=== PATIENT | male | born 1950 | race Caucasian/White ===

== ENCOUNTER 2017-07-09 06:01 | Day surgery (SDC) | payer MEDICARE, SELFPAY ==
[2017-07-09 06:14] VITALS: BP 143/86; PULSE 91; RESP 18; TEMP 36.7; O2SAT 95; BMI 29.7
--- NOTE | 2017-07-09 06:22 | PCM.HP.STD ---
Problem List (1) Colon adenomas Status: Acute History of Present Illness Date of Admission: 07/09/17 The patient is a 67 year old M who approximately 2 years had ago had a colonoscopy. 3 separate polyps were identified. One was a villous adenoma. Patient fortunately has not any bright red blood per rectum or melena. It was recommended to him at that time that he follow-up with a colonoscopy at 1 year. By report insurance did not permit that. The patient denies bright red blood per rectum or melena. No abdominal pain. No unexpected weight loss. He otherwise enjoys good health Past Medical History Allergies No Known Allergies Allergy (Verified 07/09/17 06:14) Home Medications: Ambulatory Orders Medication Instructions Recorded Pravastatin Sodium [Pravachol] 40 mg PO DAILY 01/04/15 Budesonide/Formoterol 80-4.5 2 puff INHALATION PRN PRN 07/05/17 [Symbicort 80-4.5 Mcg Inhaler] Doxazosin Mesylate [Cardura] 2 mg PO QHS 07/05/17 Lansoprazole [Prevacid] 15 mg PO PRN PRN 07/05/17 Smoking Status: Never smoker Review of Systems Constitutional: Denies: Weight Change Eyes: Denies: Blurred vision, Vision Change HEENT: Denies: Ear Pain, Eye Pain Cardiovascular: Denies: Chest Pain, Claudication Respiratory: Denies: Cough, Shortness of Breath Gastrointestinal: Denies: Hematemesis, Hematochezia Genitourinary: Denies: Dysuria, Hematuria Musculoskeletal: Denies: Leg Pain Skin: Denies: Jaundice Neurological: Denies: Confusion Psychiatric: Denies: Depression Endocrine: Denies: Change in Body Habitus Hematologic/ Lymphatic: Denies: Easy Bleeding VTE Information - Inpt Only VTE Present on Admission: No Patient Problems: Active and Suspected Problems Colon adenomas (Acute) - Physical Exam General: Alert, Oriented x3, Cooperative, No apparent distress HEENT: Atraumatic Oral: Moist Mucosa Neck: Supple Lungs: Clear to auscultation Cardiovascular: Regular rate Abdomen: Bowel Sounds Present Extremities: No clubbing Skin: No rashes Musculoskeletal: No Tenderness to Palpation of Joints or Extremities Lymphatic: No Cervical, Supraclavicular, or Inguinal Adenopathy Neurological: Cranial nerves II-XII grossly intact Psych/Mental Status: Normal Affect Assessment/Plan Active and Suspected Problems Colon adenomas (Acute) This patient has had a history of multiple previous polyps with villous adenomas detected. I strongly recommend a colonoscopy with possible biopsy or polypectomy is indicated. He is aware of the technique, benefits, risks, alternatives. We will proceed as noted. Primary care physician is Dr. Babita Gabriel M.D., F.A.C.S.
--- NOTE | 2017-07-09 06:49 | COLBX_PTH ---
PATIENT: MAIRA KOENIG LOC: EN U#:[id number] AGE/SX: 67/M ROOM: RE07/09/[address]: Dr. Kamaljit Gabriel MD : 1950 BED: DIS: 07/09/2017 SPEC #: [id number] RECD: 07/09/17 11:04 STATUS: CARLA ARVIND #: [id number] ANAMARIA: 07/09/17 06:[address]: Kamaljit Gabriel DEPT: SURGICAL PATHOLOGY RECD BY: Yordan Gaspar ENTERED: 07/09/17 12:41 SP TYPE: COLON BX OTHR DR: Dr. Hunter Jc MD Tissues: A - Transverse colon B - SPLENIC FLEXURE Procedures: Surgery Specimen Level IV HEADER OPERATION: Colonoscopy PRE-OP DIAGNOSIS: Screening, history of polyps TISSUE SUBMITTED: A. Proximal transverse polyp, B. Splenic flexure polyps MICROSCOPIC DIAGNOSIS A. Proximal transverse colon polyp, biopsy: Fragments of tubular adenoma. B. Colonic polyps at hepatic flexure, biopsy: Fragments of tubular adenoma. AM:joaquina 07/10/17 MICROSCOPIC DESCRIPTION Slides are reviewed. GROSS DESCRIPTION A - Received in fixative is one container labeled with the patient's name and designated proximal transverse polyp. The specimen consists of multiple irregular fragments of light velázquez soft tissue that in aggregate measure 1.5 x 0.5 x 0.1 cm. The specimen is totally submitted in one cassette. B - Received in fixative is one container labeled with the patient's name and designated splenic flexure polyps. The specimen consists of multiple irregular fragments of light velázquez soft tissue that in aggregate measure 2 x 0.5 x 0.1 cm. The specimen is totally submitted in one cassette. / SJ:joaquina 07/09/17 TC:5 CPT: 69018 x2
--- NOTE | 2017-07-09 07:18 | PCM.OPRPT ---
Problem List (1) Colon adenomas Status: Acute Report of Operation Date of Procedure: 07/09/17 Pre-Operative Diagnosis: Personal history of colon polyps Post-Operative Diagnosis: Sessile polyps ?2 of the proximal transverse colon. Sessile polyp of the splenic flexure Surgery/Procedure Performed:: Colonoscopy with saline lift and hot snare polypectomy with hemostatic clip placement and Leeanne ink marking Description of Surgical Findings:: Timeout and informed consent was obtained. 67-year-old gent was taken to the endoscopy suite. He was placed in a left lateral decubitus position. Throughout the procedure in aliquots she received a total of 100 mg of Demerol and 5.5 mg Versed as intravenous sedation. Digital rectal exam performed. Normal anal tone. 2+ smooth prostate. No mass lesions. Flexible colonoscope inserted the rectum advanced quite readily through the descending transverse and with some minimal abdominal pressure to the ascending colon and cecum. The cecum ileocecal valve area is well achieved. Bowel prep was good. The scope was carefully withdrawn from the ascending colon no abnormalities noted. In the proximal transverse colon there was a suggestion of possible previous ink marking. There were 2 sessile polyps. One measured approximately 1.5 cm in diameter and the other 8 mm in diameter. Both sessile. I treated both with a similar technique. I used a needle and injected saline to perform a lift procedure. For the larger one I did a piecemeal resection and then I applied a hemostatic clip. Fragments were retrieved with a Harrington net. For the smaller lesion a single resection was adequate. Harrington net was used to retrieve that specimen. The larger of the 2 polyp polyps resection area was treated with a hemostatic clip. The smaller of the 2 was nicely hemostatic at the completion. Further withdrawal demonstrated normal mid transverse colon. Then immediately at the splenic flexure on the lesser portion of that curvature there was quite a sizable polyp measuring at least 4 cm. I suspect based upon suggestion of some previous ink marking that this was yet another area of previous attempted resection. Again I performed a saline lift but the polyp was immediately on the curvature. I did a partial removal with piecemeal resection it then became apparent though because of its positioning at that a complete resection was not going to be feasible. I used a hemostatic clip to help secure the tissue. I performed a saline lift is noted. I then injected 6 cc of Leeanne ink at the location to act as a marker. That seemed to be well tolerated. Hemostasis was intact. I further withdrew the scope without additional abnormality noted. Impression Sessile polyps ?2 of the proximal transverse colon likely in location of previous polyps. Large sessile polyp of the splenic flexure. Incomplete resection due to positioning. Hemostatic clips placed both in the proximal transverse colon and at the splenic flexure. Supine abdominal film pending. The patient will return to my office in 1 week's time to discuss pathology and potential recommendations for definitive surgical resection. Previous colonoscopy was 2 years ago. Next colonoscopy will be pending further surgical discussion regarding patient needs. Cc: Dr. Babita Gabriel M.D., F.A.C.S. Procedure was started 0635. The scope was inserted 0637. The cecum was reached at 0640.47. The procedure was completed at 0715.47. Type of Anesthesia:: IV Sedation
[2017-07-09 07:25] VITALS: BP 128/74; BP 143/86; PULSE 66; RESP 16; TEMP 36.2; O2SAT 96
--- NOTE | 2017-07-09 07:28 | RAD_ITS ---
STUDY: X-RAY - ABDOMEN/PELVIS REASON FOR EXAM: Male, 67 years old. Status post colonoscopy. TECHNIQUE: AP supine and upright views of the abdomen and pelvis. COMPARISON: Prior comparison studies are not available for review at this time. FINDINGS: Normal visualized lung bases. There is an unremarkable bowel gas pattern. There is no demonstrated free abdominal air. There is no obvious visceromegaly, mass, dilated bowel or pathologic calcifications. Metallic opacities are visible within the right upper quadrant and central upper abdomen. The location of these opacities is uncertain but could be located in the colon. These could represent endoscopic capsules. Normal soft tissue structures. Normal visualized osseous structures. RAD/Abd Inc Decub and/or Erect IMPRESSION: Two nonspecific metallic devices are visible within the upper abdomen. Electronically Signed: Marilee Bush MD at 8:39 EDT , Service support ,
[2017-07-09 07:30] VITALS: BP 115/74; BP 143/86; PULSE 64; RESP 16; O2SAT 95
[2017-07-09 07:35] VITALS: BP 113/73; BP 143/86; PULSE 73; RESP 16; O2SAT 94
[2017-07-09 07:40] VITALS: BP 125/78; BP 143/86; PULSE 75; RESP 16; TEMP 36.3; O2SAT 92
[2017-07-09 08:51] VITALS: BP 143/86
== END 2017-07-09 08:52 | disposition home or self-care (01) ==
LOC: EN 06:05 → AC 06:07
PROVIDERS: Family Provider Family Medicine; PCP Family Medicine; Visit Provider Surgery
PROC: 0DJD8ZZ Inspection of Lower Intestinal Tract, Via Natural or Artificial Opening Endoscopic (ICD-10-PCS; CPT 45378; principal; 2017-07-09 06:25)
DX: D12.3 Benign neoplasm of transverse colon (principal); Z79.899 Other long term (current) drug therapy
CPT/HCPCS: 45381; 45385; 74019; 88305; 99152; 99153; J7120; A4216; A4648

== ENCOUNTER → 2018-03-13 10:32 | Outpatient (CLI) | payer MEDICARE, SELFPAY ==
[2018-03-13 12:30] LABS: ALB/GLOB Ratio 1.3 RATIO (0.9-2.4); AST(SGOT) 17 U/L (15-37); Alanine Aminotransfer ALT/SGPT 35 U/L (16-61); Alkaline Phosphatase 73 U/L (45-117); Anion Gap 9 (5-15); BUN 15 mg/dL (7-18); BUN/Creat Ratio 12.6 RATIO (10-20); Calcium,Total 8.8 mg/dL (8.5-10.1); Chloride 108 mmol/L (98-107); Cholesterol 200 mg/dL (200); Creatinine, Serum 1.19 mg/dL (0.70-1.30); EST Glomerular Filtration Rate 65 mL/min (>60); Est Glom Filt Rate - Afr Amer 78 mL/min (>60); Glucose 83 mg/dL (74-106); High Density Lipoprotein 47 mg/dL; PSA,Total - Annual Screen 1.38 ng/mL (0.00-4.00); Potassium 4.3 mmol/L (3.5-5.1); Sodium Level 142 mmol/L (136-145); Triglycerides 119 mg/dL; Very Low Density Lipoprotein 24 mg/dL (5-40)
--- OUTSIDE RECORDS SUMMARY | 2018-05-08 12:38 | XMS RPT_ITS ---
:1950 Author Organization OHIP Care Team Providers Name Role Phone Nurse, Surgery Attending Unavailable Hunter Jc Referring Unavailable Rashaunney, [facility] Primary Care Unavailable CebulKamaljit Attending Unavailable Cebul Kamaljit Referring Unavailable Ranney, [facility] Primary Care Unavailable CebulKamaljit Attending Unavailable Cebul Kamaljit Referring Unavailable Ranney, Christopher Primary Care Unavailable CeKamaljit vigil Consulting Unavailable CeKamaljit vigil Attending Unavailable Ranney, Christopher Referring Unavailable Ranney, Christopher Primary Care Unavailable Ranney, Hunter Attending Unavailable [place], [facility] Primary Care Unavailable PROBLEMS PROBLEMS DATE TYPE CONDITION / CODE ATTENDING STATUS SOURCE 03/13/2018 Unknown E78.00 - Pure Babita, Active [place] hypercholesterolem [facility] ia, unspecified / Hospital E78.00(ICD-10) Repository 03/13/2018 Unknown I10 - Essential Ranney, Active [place] (primary) [facility] hypertension / Hospital I10(ICD-10) Repository PROCEDURES PROCEDURES No Procedure Records FoundRESULTS RESULTS COMPREHENSIVE METABOLIC Collected: 03/13/2018 Status: F Source: [place] PROFIL 10:33 AM [facility] REPOSITORY TYPE CODE TESTS RESULT OUT OF RANGE REFERENCE UNITS LAB L501.0100 74-106 mg/dL Normal GLU 83 Result Comment: Please note revised GLUCOSE reference range effective 2017. LAB L501.1000 7-18 mg/dL Normal BUN 15 LAB L501.1100 0.70-1.30 mg/dL Normal CREAT,SERUM 1.19 Result Comment: The validity of the calculated GFR AND GFRAA in patients over 70 years has not been determined. Clinical correlation is essential. LAB L501.1110 >60 mL/min Normal EST GFR 65 Result Comment: Non- GFR Calc LAB L501.1115 >60 mL/min Normal EST GFR - AA 78 Result Comment: GFR Calc LAB L501.1300 10-20 RATIO Normal BUN/CRE 12.6 LAB L501.1500 6.4-8.2 g/dL T Normal PROT 7.0 LAB L501.1800 3.2-5.0 g/dL Normal ALB 4.0 LAB L501.1950 2.2-4.2 g/dL Normal GLOB 3.0 LAB L501.2000 0.9-2.4 RATIO Normal A/G 1.3 LAB L501.2200 8.5-10.1 mg/dL CA Normal 8.8 LAB L501.4100 15-37 U/L Normal AST 17 LAB L501.4305 45-117 U/L Normal ALK P 73 LAB L501.4405 16-61 U/L Normal ALT 35 LAB L501.4600 0.20-1.00 mg/dL High T BILI 1.40 LAB L501.5300 136-145 mmol/L NA Normal 142 LAB L501.5600 3.5-5.1 mmol/L K Normal 4.3 LAB L501.5900 98-107 mmol/L High CL 108 LAB L501.6100 21.0-32.0 mmol/L Normal CO2 25.0 LAB L501.6200 5-15 Normal GAP 9 Performed By: #### L500.4050, L500.4100, L501.9910 #### [facility] [address] [place], [address] LIPID PROFILE Collected: 03/13/2018 Status: F Source: [place] 10:33 AM [facility] TYPE CODE TESTS RESULT OUT OF RANGE REFERENCE UNITS LAB L501.4900 200 mg/dL Normal CHOL 200 Result Comment: <200 mg/dL Desirable 200-240 mg/dL Borderline >240 mg/dL High Risk LAB L501.5000 mg/dL Normal TRIG 119 Result Comment: The drugs N-Acetylcysteine and Metamizole may falsely depress this assay. Serum Triglycerides Reference Interval Normal <150 mg/dL Borderline high 150 - 199 mg/dL High 200 - 499 mg/dL Very High > or = 500 mg/dL LAB L501.6400 mg/dL Normal HDL 47 Result Comment: The drugs N-Acetylcysteine and Metamizole may falsely depress this assay. Reference Range HDL <40 mg/dL Low HDL Cholesterol HDL >or= 60 mg/dL High HDL Cholesterol LAB L501.6500 0-130 mg/dL Normal LDL 129 LAB L501.6600 5-40 mg/dL Normal VLDL 24 Performed By: #### L500.4050, L500.4100, L501.9910 #### [facility] [address] [place], [address] PSA,TOTAL - ANNUAL Collected: 03/13/2018 Status: F Source: [place] SCREEN 10:33 AM [facility] [place] TYPE CODE TESTS RESULT OUT OF RANGE REFERENCE UNITS LAB L501.9910 0.00-4.00 ng/mL Normal PSA,TOT 1.38 SCREEN Result Comment: This test was performed using the TPSA assay method for the [employer] chemistry system. Values obtained with different assay methods cannot be used interchangably. When changing PSA assays in the course of monitoring a patient, additional sequential testing should be carried out to confirm baseline values. Performed By: #### L500.4050, L500.4100, L501.9910 #### [facility] [address] [place], [address] SURGERY VISIT REPORT Observed: 07/16/2017 Status: F Source: [place] 5:16 PM [facility] [address] [place] [address] OFFICE VISIT Date of Service: 07/16/17 MR#: [id number] Acct: [id number] Name: ROSALIND KOENIG #: [id number] : 1950 Provider: Kamaljit Gabriel MD Age/Sex: 67/M Location[place] [facility] Status: Signed Intake Intake Visit Reasons: F/U C-SCOPE 07/09/17 RC Allergies No Known Allergies Allergy (Verified 07/09/17 06:14) Medications Pravastatin Sodium [Pravachol] 40 mg PO DAILY 01/04/15 [History Confirmed 07/09/17] Budesonide/Formoterol 80-4.5 [Symbicort 80-4.5 Mcg Inhaler] 2 puff INHALATION PRN PRN 07/05/17 [History Confirmed 07/09/17] Doxazosin Mesylate [Cardura] 2 mg PO QHS 07/05/17 [History Confirmed 07/09/17] Lansoprazole [Prevacid] 15 mg PO PRN PRN 07/05/17 [History Confirmed 07/09/17] PFSH Medical History Colon adenomas (Acute) Surgical History S/P colonoscopy (Acute) Social History Smoking Status: Never smoker HPI HPI HPI: ROSALIND KOENIG, is a 67 M who presents to the office today for surgical follow-up status post his most recent colonoscopy with saline left and snare polypectomy. 67-year-old gentleman. He presented to me on July 09, 2017 with a history of approximately 2 years prior having had a colonoscopy. 3 separate polyps were identified. One was a villous adenoma. It was recommended to him that he pursue a follow- up colonoscopy at 1 year. He did not pursue that. Subsequently on July 09, 2017 and performed a colonoscopy. Sessile polyps 2 of the proximal transverse colon was identified. Sessile polyp of the splenic flexure was identified but on follow-up abdominal x-rays that polyp actually ends at being in the mid transverse colon. I performed a colonoscopy with saline lift and hot snare polypectomy as well as in the ink marking and hemostatic clip placement. In the proximal transverse colon there was a suggestion of previous Leeanne ink marking. There were 2 sessile polyps. One measuring about 8 mm in diameter 1 1.5 cm diameter. Both were sessile. I felt that I got good piecemeal resection with complete removal of those 2 polyps and I placed a hemostatic clip. When I got to what I thought was a splenic flexure which admittedly on follow-up abdominal x-ray actually represents the mid transverse colon there was a larger sessile polyp which I felt measured about 4 cm. It was on a haustral fold and I was able to perform a saline lift and resect half of it. I did place an hemostatic clip to corie the area and I aggressively injected the area with Leeanne ink. I was expecting that this polyp likely would end up pathologically consistent with a villous adenoma possibly even with dysplasia and I felt that possibly the patient would be a candidate for a more aggressive type surgical procedure namely a partial colectomy. Additionally I had concerns based upon the suggestion that there was some Leeanne ink tattooing in these 2 areas that this actually represented the areas of previous colonoscopic treatment. It was not completely clear to me that the previous treatment had completely eradicated the polyps Assessment AND Plan 1. Colon adenomas D12.6 Plan So today's appointment was a 30 minute [id number] pathology review consultative appointment. The polyps in the proximal transverse colon and up being fragments of tubular adenoma. The polyp labeled hepatic flexure by the pathologist is an incorrect nomenclature and actually represents tissue submitted labeled B which I had labeled as the splenic flexure polyp. Finally in reality based upon postprocedural abdominal x-ray this area is actually in the mid transverse colon. In any case the pathology is also consistent with a tubular adenoma. On his most recent pathology there is no evidence for villous tumor I have described all of this to the patient and his . Whereas previously I was leaning toward a more aggressive surgical procedure I now am not recommending that. I am recommending tertiary referral for advanced endoscopic technique for completion polypectomy of the polyp which resides now in the mid transverse colon. There is in the Inc. there as well as currently a hemostatic clip. He has had an opportunity to ask and have questions answered. He will check with his insurance and recontact me as to how he would like to proceed. I think that is very reasonable to offer him a tertiary referral for resection of that remaining polyp. Cc: Dr. Babita Gabriel M.D., F.A.C.S. Coding Level of Care Code Off vis,est,level 2 Diagnoses Colon adenomas D12.6 07/16/17 1716 <Electronically signed by Kamaljit Gabriel MD> Date Kamaljit Gabriel MD [facility] Signature: Date (if applicable) CC: Hunter Jc MD ABD INC DECUB Observed: 07/09/2017 Status: F Source: [place] AND/OR ERECT 7:30 AM [facility] Imaging Services [address] [place] [address] Abd Inc Decub and/or Erect MR#: [id number] Acct: [id number] Name: KOENIGROSALIND Brigid Rep #: [id number] : 1950 67 From: Marilee Bush MD PCP: Hunter Jc MD Status: REG [facility] Study: Abd Inc Decub and/or Erect Date of Exam: 07/09/17 Exam# [id number] Ordering Dr: Kamaljit Gabriel MD STUDY: X-RAY - ABDOMEN/PELVIS REASON FOR EXAM: Male, 67 years old. Status post colonoscopy. TECHNIQUE: AP supine and upright views of the abdomen and pelvis. COMPARISON: Prior comparison studies are not available for review at this time. FINDINGS: Normal visualized lung bases. There is an unremarkable bowel gas pattern. There is no demonstrated free abdominal air. There is no obvious visceromegaly, mass, dilated bowel or pathologic calcifications. Metallic opacities are visible within the right upper quadrant and central upper abdomen. The location of these opacities is uncertain but could be located in the colon. These could represent endoscopic capsules. Normal soft tissue structures. Normal visualized osseous structures. RAD/Abd Inc Decub and/or Erect IMPRESSION: Two nonspecific metallic devices are visible within the upper abdomen. Electronically Signed: Marilee Bush MD at 8:39 EDT , Service support , CC: Hunter Jc MD; Kamaljit Gabriel MD Advanced Practice Provider: Signed OPERATIVE REPORT Observed: 07/09/2017 Status: F Source: [place] 7:24 AM [facility] Medical Records Department [address] [place] [address] Operative Report 07/09/17 0718 MR#: [id number] Acct: [id number] Name: ROSALIND KOENIG Rep #: [id number] : 1950 67 From: Kamaljit Gabriel MD PCP: Hunter Jc MD Status: REG [facility] Y Location: [place] [address] Problem List (1) Colon adenomas Status: Acute Report of Operation Date of Procedure: 07/09/17 Pre-Operative Diagnosis: Personal history of colon polyps Post-Operative Diagnosis: Sessile polyps 2 of the proximal transverse colon. Sessile polyp of the splenic flexure Surgery/Procedure Performed:: Colonoscopy with saline lift and hot snare polypectomy with hemostatic clip placement and Leeanne ink marking Description of Surgical Findings:: Timeout and informed consent was obtained. 67-year-old gent was taken to the endoscopy suite. He was placed in a left lateral decubitus position. Throughout the procedure in aliquots she received a total of 100 mg of Demerol and 5.5 mg Versed as intravenous sedation. Digital rectal exam performed. Normal anal tone. 2+ smooth prostate. No mass lesions. Flexible colonoscope inserted the rectum advanced quite readily through the descending transverse and with some minimal abdominal pressure to the ascending colon and cecum. The cecum ileocecal valve area is well achieved. Bowel prep was good. The scope was carefully withdrawn from the ascending colon no abnormalities noted. In the proximal transverse colon there was a suggestion of possible previous ink marking. There were 2 sessile polyps. One measured approximately 1.5 cm in diameter and the other 8 mm in diameter. Both sessile. I treated both with a similar technique. I used a needle and injected saline to perform a lift procedure. For the larger one I did a piecemeal resection and then I applied a hemostatic clip. Fragments were retrieved with a Harrington net. For the smaller lesion a single resection was adequate. Harrington net was used to retrieve that specimen. The larger of the 2 polyp polyps resection area was treated with a hemostatic clip. The smaller of the 2 was nicely hemostatic at the completion. Further withdrawal demonstrated normal mid transverse colon. Then immediately at the splenic flexure on the lesser portion of that curvature there was quite a sizable polyp measuring at least 4 cm. I suspect based upon suggestion of some previous ink marking that this was yet another area of previous attempted resection. Again I performed a saline lift but the polyp was immediately on the curvature. I did a partial removal with piecemeal resection it then became apparent though because of its positioning at that a complete resection was not going to be feasible. I used a hemostatic clip to help secure the tissue. I performed a saline lift is noted. I then injected 6 cc of Leeanne ink at the location to act as a marker. That seemed to be well tolerated. Hemostasis was intact. I further withdrew the scope without additional abnormality noted. Impression Sessile polyps 2 of the proximal transverse colon likely in location of previous polyps. Large sessile polyp of the splenic flexure. Incomplete resection due to positioning. Hemostatic clips placed both in the proximal transverse colon and at the splenic flexure. Supine abdominal film pending. The patient will return to my office in 1 week's time to discuss pathology and potential recommendations for definitive surgical resection. Previous colonoscopy was 2 years ago. Next colonoscopy will be pending further surgical discussion regarding patient needs. Cc: Dr. Babita Gabriel M.D., F.A.C.S. Procedure was started 0635. The scope was inserted 0637. The cecum was reached at 0640.47. The procedure was completed at 0715.47. Type of Anesthesia:: IV Sedation 07/09/17 0724 <Electronically signed by Kamaljit Gabriel MD> Date Kamaljit Gabriel MD CC: Hunter Jc MD; Kamaljit Gabriel MD Signed COLON BIOPSY (CHOOSE Observed: 07/09/2017 Status: F Source: [place] SITE) 6:49 AM [facility] Patient: ROSALIND KOENIG : 1950 (67/M) Acct Num: [id number] Phys: Nery BURGESS,Kamaljit Unit Num: [id number] Loc: EN Specimen: [id number] Received: 07/09/17 - 1104 Spec Type: COLON BX TISSUES TISSUES: A. Transverse colon B. SPLENIC FLEXURE GROSS DESCRIPTION A - Received in fixative is one container labeled with the patient's name and designated proximal transverse polyp. The specimen consists of multiple irregular fragments of light velázquez soft tissue that in aggregate measure 1.5 x 0.5 x 0.1 cm. The specimen is totally submitted in one cassette. B - Received in fixative is one container labeled with the patient's name and designated splenic flexure polyps. The specimen consists of multiple irregular fragments of light velázquez soft tissue that in aggregate measure 2 x 0.5 x 0.1 cm. The specimen is totally submitted in one cassette. / SJ:joaquina 07/09/17 TC:5 CPT: 29480 x2 HEADER OPERATION: Colonoscopy PRE-OP DIAGNOSIS: Screening, history of polyps TISSUE SUBMITTED: A. Proximal transverse polyp, B. Splenic flexure polyps MICROSCOPIC DESCRIPTION Slides are reviewed. MICROSCOPIC DIAGNOSIS A. Proximal transverse colon polyp, biopsy: Fragments of tubular adenoma. B. Colonic polyps at hepatic flexure, biopsy: Fragments of tubular adenoma. AM:joaquina 07/10/17 Signed Iker [facility] 07/10/17 <signature on file> Performed By: #### PCOLBX #### [facility] [address] [place], [address] HISTORY AND PHYSICAL Observed: 07/09/2017 Status: F Source: [place] EXAM 6:25 AM [facility] [place] Medical Records Department [address] [place] [address] History and Physical 07/09/17 0622 MR#: [id number] Acct: [id number] Name: ROSALIND KOENIG Rep #: [id number] : 1950 67 From: Kamaljit Gabriel MD PCP: Hunter Jc MD Status: REG [facility] Y Location: [place] [address] Problem List (1) Colon adenomas Status: Acute History of Present Illness Date of Admission: 07/09/17 The patient is a 67 year old M who approximately 2 years had ago had a colonoscopy. 3 separate polyps were identified. One was a villous adenoma. Patient fortunately has not any bright red blood per rectum or melena. It was recommended to him at that time that he follow-up with a colonoscopy at 1 year. By report insurance did not permit that. The patient denies bright red blood per rectum or melena. No abdominal pain. No unexpected weight loss. He otherwise enjoys good health Past Medical History Allergies No Known Allergies Allergy (Verified 07/09/17 06:14) Home Medications: Ambulatory Orders Medication Instructions Recorded Pravastatin Sodium [Pravachol] 40 mg PO DAILY 01/04/15 Budesonide/Formoterol 80-4.5 2 puff INHALATION PRN PRN 07/05/17 Smoking Status: Never smoker Review of Systems Constitutional: Denies: Weight Change Eyes: Denies: Blurred vision, Vision Change HEENT: Denies: Ear Pain, Eye Pain Cardiovascular: Denies: Chest Pain, Claudication Respiratory: Denies: Cough, Shortness of Breath Gastrointestinal: Denies: Hematemesis, Hematochezia Genitourinary: Denies: Dysuria, Hematuria Musculoskeletal: Denies: Leg Pain Skin: Denies: Jaundice Neurological: Denies: Confusion Psychiatric: Denies: Depression Endocrine: Denies: Change in Body Habitus Hematologic/ Lymphatic: Denies: Easy Bleeding VTE Information - Inpt Only VTE Present on Admission: No Patient Problems: Active and Suspected Problems Colon adenomas (Acute) - Physical Exam General: Alert, Oriented x3, Cooperative, No apparent distress HEENT: Atraumatic Oral: Moist Mucosa Neck: Supple Lungs: Clear to auscultation Cardiovascular: Regular rate Abdomen: Bowel Sounds Present Extremities: No clubbing Skin: No rashes Musculoskeletal: No Tenderness to Palpation of Joints or Extremities Lymphatic: No Cervical, Supraclavicular, or Inguinal Adenopathy Neurological: Cranial nerves II-XII grossly intact Psych/Mental Status: Normal Affect Assessment/Plan Active and Suspected Problems Colon adenomas (Acute) This patient has had a history of multiple previous polyps with villous adenomas detected. I strongly recommend a colonoscopy with possible biopsy or polypectomy is indicated. He is aware of the technique, benefits, risks, alternatives. We will proceed as noted. Primary care physician is Dr. Babita Gabriel M.D., F.A.C.S. 07/09/17 0625 <Electronically signed by Kamaljit Gabriel MD> Date Kamaljit Gabriel MD Cosigner Signature: Date (if applicable) CC: Hunter Jc MD; Kamaljit Gabriel MD Signed ALLERGIES ALLERGIES DATE TYPE / CODE NAME / CODE REACTION SEVERITY SOURCE 07/09/2017 Drug No Known Unknown [facility] Allergy/4160 Allergies/F00 Hospital 02150(SNOMED 1430756(RXNOR Repository CT) M) ENCOUNTERS ENCOUNTERS ADMIT/DISCHARGE ACCOUNT ADMITTING ENCOUNTER LOCATION SOURCE NUMBER CLASS 03/13/2018 [id number] [place] [facility] ing:MFPLAB Repository 07/16/2017/ [id number] Ambulatory BMSBuilding:B [place] 8 1 [facility] Repository 07/09/2017/ [id number] Ambulatory [place] 8 0 [facility] ing:ENRoom: Repository AC12 07/09/2017 [id number] Ambulatory BMSBuilding:B [place] 8 [facility] Repository 05/31/2017/ [id number] Ambulatory BMSBuilding:B [place] 8 7 [facility] Repository PAYERS PAYERS ENCOUNTER GUARANTOR PAYER SUBSCRIBER SOURCE 03/13/2018 ROSALIND LOPEZ Primary ROSALIND [place] [address], Insurance:[place]: [facility] [id number]: MEDICARE SENIOR [id number] Hospital ADVANTAPolicy Number: Repository () [id number] Date:5543-98-75[address] [place] [address]GY: 03/13/2018 Secondary NOT GIVENUNK [place] Insurance:SELF PAY [facility] Number: Effective Repository Date:2018-03-13 07/16/2017 ROSALIND J MCGUIREPO Primary [facility]IND J [place] [address] Insurance:[place] COLESREDOB: [facility] [place] [address]Yhw: MEDICARE SENIOR [id number] Hospital ADVANTAPolicy Number: Repository () [id number] Date:[id number] [address] [place] [address]EL: 07/16/2017 Secondary NOT GIVENUNK [place] Insurance:SELF PAY [facility] Number: Effective Repository Date:2017-07-10 07/09/2017 ROSALIND J MCGUIREPO Primary [facility]ALIND J [place] [address] Insurance:[place] SHARYNREDOB: [facility] [place] [id number]: MEDICARE SENIOR 1950[facility] ADVANTAPolicy Number: Repository () [id number] Date:[id number] [address] [place] [address] [place] [address]JX: 07/09/2017 Secondary NOT GIVENUNK [place] Insurance:SELF PAY [facility] Number: Effective Repository Date:2017-05-31 07/09/2017 ROSALIND J MCGUIREPO Primary ROSALIND J [place] [address], Insurance:[place] COLESREDOB: [facility] [place] [id number]: MEDICARE SENIOR 1950[facility] ADVANTAPolicy Number: Repository () [id number] Date:0298-81-11CK [address] [place] [address]IL: 07/09/2017 Secondary NOT GIVENUNK [place] Insurance:SELF PAY [facility]: Effective Repository Date:2017-07-09 05/31/2017 ROSALIND LOPEZ Primary ISSA A [place] [address], Insurance:SUMMA MCGUIREDOB: Community id [id number]: CAREPolicy Number: [id number] [id number] Repository () Date:7813-57-37XV [address], [place] [address]AG: 05/31/2017 Secondary ISSA Audrey Lee Insurance:STANDARD MCGUIREDOB: Community LIFE ACCIDENTPolicy [id number] Hospital Number: Repository [id number] Date:7074-31-03LG [address], [place] [address]UE: 05/31/2017 Tertiary NOT GIVENUNK [place] Insurance:SELF PAY [facility] Number: Effective Repository Date:2017-05-31
== END ==
PROVIDERS: Family Provider Family Medicine; PCP Family Medicine; Visit Provider Family Medicine
DX: Z00.00 Encounter for general adult medical examination without abnormal findings (principal); E78.00 Pure hypercholesterolemia, unspecified; I10 Essential (primary) hypertension; Z12.5 Encounter for screening for malignant neoplasm of prostate
CPT/HCPCS: 36415; 80053; 80061; 84153; G0103

== ENCOUNTER → 2019-04-28 09:00 | Outpatient (CLI) | payer MEDICARE, SELFPAY ==
[2019-04-28 11:10] LABS: ALB/GLOB Ratio 1.1 RATIO (0.9-2.4); AST(SGOT) 24 U/L (15-37); Alanine Aminotransfer ALT/SGPT 40 U/L (16-61); Albumin, Serum 3.7 g/dL (3.2-5.0); Alkaline Phosphatase 74 U/L (45-117); Anion Gap 6 (5-15); BUN 15 mg/dL (7-18); BUN/Creat Ratio 12.6 RATIO (10-20); Calcium,Total 8.9 mg/dL (8.5-10.1); Chloride 107 mmol/L (98-107); Cholesterol 198 mg/dL (200); Creatinine, Serum 1.19 mg/dL (0.70-1.30); EST Glomerular Filtration Rate 65 mL/min (>60); Est Glom Filt Rate - Afr Amer 78 mL/min (>60); Globulin 3.4 g/dL (2.2-4.2); Glucose 89 mg/dL (74-106); High Density Lipoprotein 52 mg/dL; PSA,Total - Annual Screen 1.25 ng/mL (0.00-4.00); Potassium 3.8 mmol/L (3.5-5.1); Protein, Total 7.1 g/dL (6.4-8.2); Sodium Level 138 mmol/L (136-145); Triglycerides 156 mg/dL; Very Low Density Lipoprotein 31 mg/dL (5-40)
== END ==
PROVIDERS: Family Provider Family Medicine; PCP Family Medicine; Referring Provider Family Medicine; Visit Provider Family Medicine
DX: Z00.00 Encounter for general adult medical examination without abnormal findings (principal); Z12.5 Encounter for screening for malignant neoplasm of prostate
CPT/HCPCS: 36415; 80053; 80061; 84153; G0103

== ENCOUNTER → 2020-04-12 08:26 | Outpatient (CLI) | payer MEDICARE, SELFPAY ==
[2020-04-12 10:35] LABS: ALB/GLOB Ratio 1.1 RATIO (0.9-2.4); AST(SGOT) 21 U/L (15-37); Alanine Aminotransfer ALT/SGPT 36 U/L (16-61); Albumin, Serum 3.7 g/dL (3.2-5.0); Alkaline Phosphatase 81 U/L (45-117); Anion Gap 5 (5-15); BUN 11 mg/dL (7-18); BUN/Creat Ratio 10.2 RATIO (10-20); Calcium,Total 8.6 mg/dL (8.5-10.1); Chloride 108 mmol/L (98-107); Cholesterol 196 mg/dL (200); Creatinine, Serum 1.08 mg/dL (0.70-1.30); EST Glomerular Filtration Rate 72 mL/min (>60); Est Glom Filt Rate - Afr Amer 87 mL/min (>60); Globulin 3.4 g/dL (2.2-4.2); Glucose 88 mg/dL (74-106); High Density Lipoprotein 51 mg/dL; Protein, Total 7.1 g/dL (6.4-8.2); Sodium Level 139 mmol/L (136-145); Triglycerides 172 mg/dL; Very Low Density Lipoprotein 34 mg/dL (5-40)
== END ==
PROVIDERS: PCP Family Medicine; Visit Provider Family Medicine
DX: E78.00 Pure hypercholesterolemia, unspecified (principal)
CPT/HCPCS: 36415; 80053; 80061

== ENCOUNTER → 2020-05-10 11:05 | Outpatient (CLI) | payer MEDICARE, SELFPAY ==
[2020-05-10 12:03] LABS: Hematocrit 45.5 % (40-54); Hemoglobin 14.8 g/dL (13.0-16.5); Mean Corp Hgb Conc 32.5 g/dL (32-36); Mean Corpuscular Hgb 29.8 pg (27.0-32.0); Mean Corpuscular Volume 91.7 fL (80-94); Platelet Count 239 K/mm3 (150-450); RBC Distribution Width CV 11.8 % (11.6-14.6); RBC Distribution Width SD 39.8 fl (35.1-43.9); Red Blood Count 4.96 M/mm3 (4.6-6.2); White Blood Count 5.9 K/mm3 (4.4-11.0)
[2020-05-10 12:41] LABS: PSA,Total - Annual Screen 1.39 ng/mL (0.00-4.00)
== END ==
PROVIDERS: PCP Family Medicine; Visit Provider Family Medicine
DX: K92.1 Melena (principal); Z12.5 Encounter for screening for malignant neoplasm of prostate
CPT/HCPCS: 36415; 84153; 85027; G0103

== ENCOUNTER 2021-04-25 08:14 | Outpatient (CLI) | payer MEDICARE, SELFPAY ==
[2021-04-25 10:33] LABS: ALB/GLOB Ratio 1.1 RATIO (0.9-2.4); AST(SGOT) 15 U/L (15-37); Alanine Aminotransfer ALT/SGPT 31 U/L (16-61); Albumin, Serum 3.7 g/dL (3.2-5.0); Alkaline Phosphatase 72 U/L (45-117); Anion Gap 8 (5-15); BUN 15 mg/dL (7-18); BUN/Creat Ratio 13.3 RATIO (10-20); Calcium,Total 8.7 mg/dL (8.5-10.1); Chloride 105 mmol/L (98-107); Cholesterol 175 mg/dL (200); Creatinine, Serum 1.13 mg/dL (0.70-1.30); EST Glomerular Filtration Rate 68 mL/min (>60); Est Glom Filt Rate - Afr Amer 83 mL/min (>60); Globulin 3.5 g/dL (2.2-4.2); Glucose 100 mg/dL (74-106); High Density Lipoprotein 50 mg/dL; Potassium 3.9 mmol/L (3.5-5.1); Protein, Total 7.2 g/dL (6.4-8.2); Sodium Level 141 mmol/L (136-145); Triglycerides 126 mg/dL; Very Low Density Lipoprotein 25 mg/dL (5-40)
== END 2021-04-25 23:59 | disposition short-term general hospital (02) ==
LOC: MTLAB 08:32
PROVIDERS: PCP Family Medicine; Referring Provider Family Medicine; Visit Provider Family Medicine
DX: I10 Essential (primary) hypertension (principal); Z12.5 Encounter for screening for malignant neoplasm of prostate
CPT/HCPCS: 36415; 80053; 80061

== ENCOUNTER 2021-05-12 09:21 | Outpatient (CLI) | payer MEDICARE, SELFPAY ==
[2021-05-12 12:36] LABS: PSA,Total - Annual Screen 3.24 ng/mL (0.00-4.00)
== END 2021-05-12 23:59 | disposition short-term general hospital (02) ==
LOC: MTLAB 09:22
PROVIDERS: PCP Family Medicine; Referring Provider Family Medicine; Visit Provider Family Medicine
DX: Z12.5 Encounter for screening for malignant neoplasm of prostate (principal)
CPT/HCPCS: 36415; 84153; G0103

== ENCOUNTER → 2022-04-30 | Outpatient (CLI) | payer MEDICARE, SELFPAY ==
[2022-04-30 10:33] LABS: ALB/GLOB Ratio 1.2 RATIO (0.9-2.4); AST(SGOT) 13 U/L (15-37); Alanine Aminotransfer ALT/SGPT 28 U/L (16-61); Albumin, Serum 3.7 g/dL (3.2-5.0); Alkaline Phosphatase 68 U/L (45-117); Anion Gap 9 (5-15); BUN 17 mg/dL (7-18); BUN/Creat Ratio 14.4 RATIO (10-20); Calcium,Total 8.7 mg/dL (8.5-10.1); Chloride 106 mmol/L (98-107); Cholesterol 171 mg/dL (200); Creatinine, Serum 1.18 mg/dL (0.70-1.30); EST Glomerular Filtration Rate 65 mL/min (>60); Est Glom Filt Rate - Afr Amer 78 mL/min (>60); Glucose 99 mg/dL (74-106); High Density Lipoprotein 50 mg/dL; Protein, Total 6.7 g/dL (6.4-8.2); Sodium Level 142 mmol/L (136-145); Triglycerides 111 mg/dL; Very Low Density Lipoprotein 22 mg/dL (5-40)
== END | disposition home or self-care (01) ==
PROVIDERS: PCP Family Medicine; Visit Provider Family Medicine
DX: E78.00 Pure hypercholesterolemia, unspecified (principal); Z12.5 Encounter for screening for malignant neoplasm of prostate
CPT/HCPCS: 36415; 80053; 80061

== ENCOUNTER → 2022-05-25 | Outpatient (CLI) | payer MEDICARE, SELFPAY ==
[2022-05-25 10:31] LABS: PSA,Total - Annual Screen 3.87 ng/mL (0.00-4.00)
== END | disposition home or self-care (01) ==
LOC: MFPLAB 09:11
PROVIDERS: PCP Family Medicine; Referring Provider Family Medicine; Visit Provider Family Medicine
DX: Z00.00 Encounter for general adult medical examination without abnormal findings (principal); Z12.5 Encounter for screening for malignant neoplasm of prostate
CPT/HCPCS: 36415; 84153; G0103

== ENCOUNTER → 2023-04-16 | Outpatient (CLI) | payer MEDICARE, SELFPAY ==
--- OUTSIDE RECORDS SUMMARY | 2023-04-16 09:18 | XMS RPT_ITS | CCD ---
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 Name Role Phone Unavailable Primary Care Provider Hector Stoll MD Primary Care Provider Hector Jc MD Primary Care Provider Hector Jc MD Primary Care Provider Hectro Jc MD Primary Care Provider HECTOR JC Primary Care VIVI Castano Referring Unavailable HORACIO BUSTILLO Attending Unavailable HECTOR JC Primary Care VIVI Castano Attending Unavailable HECTOR JC Primary Care VIVI Castano Referring Unavailable HORACIO BUSTILLO Attending Unavailable Hector Jc MD Primary Care Provider Medications Completed/Discontinued Medications Medication Drug Class(es) Dates Sig (Normalized) Sig (Original) Albuterol (5 sources) beta2-Adrenergic Agonist ALBUTER OL INHALATION Inhale as instructed as needed. 0 Active Problems Problem Classification Problem Date Documented Da te Episodic/Chronic Other and unspecified benign neoplasm (3 sources) Tubular adenoma ; Translations: [Benign neoplasm, unspecified site] Episodic Other and unspecified benign neoplasm (1 source) History of polyp of colon; Translations: [Personal history of colonic polyps] Episodic Other and unspecified benign neoplasm (1 source) Benign neoplasm, unspecified site; Translations: [Tubular adenoma] Onset: 06-05-2022 Episodic Other and unspecified benign neoplasm (1 source) Polyp of colon; Translations: [Multiple polyps of sigmoid colon] Onset: 06-05-2022 Episodic Other and unspecified benign neoplasm (1 source) Polyp of sigmoid colon; Translations: [Polyp of colon] 06-05-2022 Episodic Other screening for suspected conditions (not mental disorders or infectious disease) (2 sources) Encounter for screening for malignant neoplasm of colon; Translations: [Patient encounter status] Onset: 06-05-2022 06-05-2022 Episodic Results Test Name Value Interpretation Reference Range Facil ity Vital Signs Date Time Vital Sign Value Performing Clinician Marina ohara 06-05-2022 11:28-0500 Diastolic blood pressure 83 mm[Hg] Horacio Bustillo MD Work Phone: [facility] 06-05-2022 11:28-0500 Heart rate 80 /min Horacio Bustillo MD Work Phone: [facility] 06-05-2022 11:28-0500 Respiratory rate 16 /min Horacio Bustillo MD Work Phone: [facility] 06-05-2022 11:28-0500 SaO2% (BldA) [Mass fraction] 94 % Horacio Bustillo MD Work Phone: [facility] 06-05-2022 11:28-0500 Systolic blood pressure 160 mm[Hg] Horacio Bustillo MD Work Phone: [facility] 06-05-2022 09:19-0500 Body temperature 97.7 [degF] Horacio Bustillo MD Work Phone: [facility] 06-05-2022 09:19-0500 Body weight 94.3 kg Horacio Bustillo MD Work Phone: [facility] 12-26-2021 15:32-0400 Body height 177.8 cm Viviivette Hernandez PA-C Work Phone: [facility] 12-26-2021 15:32-0400 Body temperature 98.2 [degF] Viviivette Olsenf PA-C Work Phone: [facility] 12-26-2021 15:32-0400 Body weight 94.35 kg Viviivette Hernandez PA-C Work Phone: [facility] 12-26-2021 15:32-0400 Diastolic blood pressure 72 mm[Hg] Vivi Clendenin PA-C Work Phone: [facility] 12-26-2021 15:32-0400 Heart rate 101 /min Vivi Clendenin PA-C Work Phone: [facility] 12-26-2021 15:32-0400 SaO2% (BldA) [Mass fraction] 95 % Vivi Clendenin PA-C Work Phone: [facility] 12-26-2021 15:32-0400 Systolic blood pressure 128 mm[Hg] Vivi David PA-C Work Phone: [facility] Encounters Encounter Date Encounter Type Care Provider Facility Start: 06-11-2022 Telephone encounter Vivi Gra f PA-C Work Phone: General Surgery Procedures Date Procedure Procedure Detail Performing Clinician Start: 06-05-2022 Level iv surg pathol ogy gross&microscopic exam Horacio Bustillo MD Work Phone: Start: 06-05-2022 Colonoscopy flx dx w /collj spec when pfrmd Vivi Clendenin PA-C Work Phone: Start: 06-05-2022 Colonoscopy Vivi Gra f PA-C Work Phone: Start: 12-19-2021 Colonoscopy Vivi Gra f PA-C Work Phone: Start: 06-06-2021 Colonoscopy Vivi Gra f PA-C Work Phone: Start: 02-17-2020 PT ED PATIENT INFORMATION Vivi David Work Phone: Start: 02-10-2020 PT ED PATIENT INFORMATION Vivi Clendenin Work Phone: Plan of Treatment Date Care Activity Detail Author Start: 11-01-2030 Urine microalbumin profile DTaP,Tdap,Td Vaccine (2 - Td or Tdap) [facility] Start: 06-05-2024 Colonoscopy COLONOSCOPY [facility] Start: 06-05-2024 COLORECTAL CANCER SCREENING COLORECTAL CANCER SCREENING [facility] Start: 12-19-2022 Colonoscopy COLONOSCOPY [facility] Start: 12-19-2022 COLORECTAL CANCER SCREENING COLORECTAL CANCER SCREENING [facility] Start: 12-14-2022 Covid-19 Vaccine ( season) Covid-19 Vaccine ( season) [facility] Start: 12-14-2022 Influenza vaccination [facility] Start: 06-06-2022 Colonoscopy COLONOSCOPY [facility] Start: 06-06-2022 COLORECTAL CANCER SCREENING COLORECTAL CANCER SCREENING [facility] Start: 04-23-2022 Pneumococcal Vaccine: 65+ (3 - PPSV23 or PCV20) Pneumococcal Vaccine: 65+ (3 - PPSV23 or PCV20) [facility] Start: 04-15-2022 ADVANCE DIRECTIVE DISCUSSION ADVANCE DIRECTIVE DISCUSSION [facility] Start: 04-15-2022 DEPRESSION ASSESSMENT DEPRESSION ASSESSMENT [facility] Start: 12-14-2021 Influenza vaccination INFLUENZA (#1) [facility] Start: 04-15-2021 ADVANCE DIRECTIVE DISCUSSION ADVANCE DIRECTIVE DISCUSSION [facility] Start: 04-08-2021 COVID-19 VACCINE (5 - Booster for Moderna series) COVID-19 VACCINE (5 - Booster for Moderna series) [facility] Start: 12-15-2019 Influenza vaccination INFLUENZA (#1) [facility] Start: 02-25-2016 ADVANCE DIRECTIVE DISCUSSION ADVANCE DIRECTIVE DISCUSSION [facility] Start: 02-25-2016 PNEUMOCOCCAL: 65+ (1 - PCV) PNEUMOCOCCAL: 65+ (1 - PCV) [facility] Start: 02-25-2016 PNEUMOVAX AGE 65 AND OVER WITH 5YR LOOKBACK (#1) PNEUMOVAX AGE 65 AND OVER WITH 5YR LOOKBACK (#1) [facility] Start: 2011 RSV Vaccine (1 - 1-dose 60+ series) RSV Vaccine (1 - 1-dose 60+ series) [facility] Start: 2006 PROSTATE CANCER SCREENING DISCUSSION PROSTATE CANCER SCREENING DISCUSSION [facility] Start: 2001 SHINGRIX VACCINE (1 of 2) SHINGRIX VACCINE (1 of 2) [facility] Start: 2001 Tuberculosis screening COLORECTAL CANCER SCREENING,SEE MODIFIER [facility] Start: 02-25-1996 COLOGUARD (FIT-DNA) COLOGUARD (FIT-DNA) [facility] Start: 02-25-[address] COLONOGRAPHY [facility] Start: 02-25-1996 DIABETES SCREEN DIABETES SCREEN [facility] Start: 02-25-1996 Diabetes Screening Diabetes Screening [facility] Start: 02-25-1996 FECAL OCCULT BLOOD FECAL OCCULT BLOOD [facility] Start: 02-25-1996 SIGMOIDOSCOPY SIGMOIDOSCOPY [facility] Start: 1986 Lipid 1996 panel - Serum or Plasma Lipid Screening [facility] Start: 1986 LIPID SCREEN LIPID SCREEN [facility] Start: 1970 Urine microalbumin profile DTAP,TDAP,TD (1 - Tdap) [facility] Start: 1969 HEPATITIS C SCREENING HEPATITIS C SCREENING [facility] Start: 1963 Adult depression screening assessment DEPRESSION SCREENING [facility] End: 06-20-2022 COLONOSCOPY DIAGNOSTIC COLONOSCOPY DIAGNOSTIC Endoscopy Routine Tubular adenoma 1 Occurrences starting 06/20/2021 until 06/20/2022 [facility] Work Phone: Immunizations Immunization Date Immunization Notes Care Provider Andrew shrestha 02-08-2022 influenza virus vacc ine, unspecified formulation Horacio Bustillo MD Work Phone: [facility] Payers Date Payer Category Payer Medicare HUMANA MEDICARE HUMANA GOLD PLUS [id number] 2022-Present [phone] [address] [address] [place] [address] HMO [id number] 2022 Private Health Insurance [id number] 2018 Unknown [id number] 2018 Unknown ANTHEM BLUE CROS S AND BLUE SHIELD ANTHEM MEDIBLUE HMO [id number] 2018-Present [phone] [address] [place] [address] HMO [id number] 2018 Unknown [id number] Social History Date Type Detail [facility] Start: 1950 Sex Assigned At Not on file [facility] Start: 03-22-2020 End: 12-26-2021 Tobacco smoking status NHIS Never smoked tobacco [facility] Start: 03-22-2020 End: 12-26-2021 Tobacco use and exposure Smokeless tobacco non-user [facility] Start: 06-20-2021 End: 06-05-2022 Alcohol intake Current drinker of alcohol (finding) [facility] Start: 03-22-2020 History SDOH Alcohol Comment after work [facility] Start: 05-21-2021 End: 12-26-2021 Exposure to SARS-CoV-2 (event) Not sure [facility] Start: 05-06-2022 End: 06-05-2022 History of Social function [facility] Start: 05-06-2022 End: 06-05-2022 Tobacco use panel [facility] National Score (1-10 0), lower number is lower risk 67 [facility] Clinical Notes 06-20-2021 to 06-11-2022 Telephone Encounter - Marian Overton LPN - 06/11/2022 1:51 PM ESTTelephone Encounter - Vivi Hernandez PA-C - 06/11/2022 1:33 PM ESTTelephone Encounter - Marian Overton LPN - 06/11/2022 1:23 PM EST Note Date & Type Note Facility 06-11-2022 Miscellaneous Notes Formattin g of this note might be different from the original. Called patient and updated, HM, history and recall letter done. Marian Overton LPN Please let patient know pathology returned as adenomatous polyps-benign, but precancerous type of polyps. Plan for 2 year repeat colonoscopy as discussed per Dr. Bustillo. Please ensure HM and surgical history updated, and generate recall letter for 2 yrs Patient called in for results from colonoscopy, please review and advise. Thank you. Joe# [phone] documented in this encounter [facility] 02-21-2023 Nurse Note Patient arrived in phase II via cart left lateral position, eyes closed but open to verbal stimuli, alert to self and event, skin warm and dry, abdomen distended, slightly firm, patient denies pain or nausea, reports it just feels tight. Encouraged to pass air rectally as able. documented in this encounter [facility] 06-05-2022 History and physical note PROCEDURAL SEDATION HISTORY AND PHYSICAL EXAM SERVICE DATE: 06/05/2022 SERVICE TIME: 10:09 AM Subjective HPI: This is a 72 year old male who presents for follow up colonoscopy PAST ANESTHESIA HISTORY: No history of adverse event PAST MEDICAL HISTORY Diagnosis Date Asthma Benign intracranial hypertension Hyperlipemia Hypertension PAST SURGICAL HISTORY Procedure Laterality Date COLONOSCOPY 06/06/2021 repeat in 6 months COLONOSCOPY SCREENING 12/19/2021 repeat in 6 months COLONOSCOPY SCRN NOT HIGH RISK 03/22/2020 TONSILLECTOMY HX Prior to Admission medications as of 06/05/22 0909 Medication Sig Last Dose Taking fluticasone/vilanterol (BREO ELLIPTA INHALATION) Inhale as instructed once daily. 06/05/2022 at 0700 Yes esomeprazole magnesium (NEXIUM 24HR ORAL) Take by mouth as needed. Past Week Yes doxazosin (CARDURA) 4 mg tablet Take 4 mg by mouth daily at bedtime. 06/04/2022 Yes pravastatin (PRAVACHOL) 40 mg tablet Take 40 mg by mouth once daily. 06/04/2022 Yes diphenhydramine HCl (ALLERGY MEDICATION ORAL) Take by mouth as needed. Unknown ALBUTEROL INHALATION Inhale as instructed as needed. Unknown ALLERGIES No Known Allergies Objective PHYSICAL EXAM: The remainder of the physical exam is noncontributory. AIRWAY: Airway Visualization of Uvula: Yes Mouth opening greater than 2 fingerbreadths: Yes Neck Full Range of Motion: Yes LUNGS: Lungs clear to auscultation CARDIAC: Regular rhythm,Regular rate Assessment/Plan ASA Class: ASA Class:: Patient with mild systemic disease Active Problems: * No active hospital problems. * Resolved Problems: * No resolved hospital problems. * Medication and Non-Pharmacologic VTE Prophylaxis/Anticoagulants VTE Prophylaxis: VTE prophylaxis appropriate Provisional Diagnosis/Treatment Plan: follow up colonoscopy SEDATION GOAL: Moderate SIGNATURE: Horacio Bustillo MD PATIENT NAME: Joe Garcia DATE: June 05, 2022 TIME: 10:09 AM Source Note - Horacio Bustillo MD - 06/05/2022 9:45 AM EST Images from the original note were not included. FOLLOW UP VISIT - ENDOSCOPY NAME: Joe Garcia CLINIC NO.: [id number] DATE OF SERVICE: 12/26/2021 : 1950 REFERRING PHYSICIAN: Hector Jc MD Joe is a patient I am following with Dr. Bustillo for history of multiple colon polyps. Dr. Bustillo performed lower endoscopy on 12/19/21. The patient was found to have a 4 mm ascending colon polyp which was removed. He was aso noted to have a tattoo in the mid transverse colon marking a post-polypectomy scar, which was biopsied. Pathology demonstrated: FINAL DIAGNOSIS A. Colon, ascending, polypectomy: -Fragments of tubular adenoma B. Colon, transverse, polypectomy: -Tubular adenoma The patient notes no complaints since the procedure. VITALS: Blood pressure 128/72, pulse 101, temperature 36.8 C (98.2 F), height 177.8 cm (5' 10 ), weight 94.3 kg (208 lb), SpO2 95 %. General: patient is alert, cooperative, pleasant and in no acute distress On examination, the abdomen is benign. Assessment IMPRESSION: s/p colonoscopy with polypectomy and biopsy of scar from prior polypectomy site-incidentally positive for adenomatous tissue PLAN: The operative findings and pathology report were reviewed with the patient, and the patient has had the opportunity to ask questions and have questions answered. If the patient notes any problems or changes in bowel function, the patient should contact me immediately. Otherwise I recommend follow up endoscopy within 2-3 months due to incidental finding of recurrent tubular adenoma within prior scar/tattoo site. Patient scheduled procedure for 04/24/22. Will plan for saline lift biopsy/polypectomy at that time. Patient verbalized understanding of all above and agreed with the plan New Rx for Golytely sent Diagnoses: (D36.9) Tubular adenoma (primary encounter diagnosis) I spent a total of 24 minutes on the date of the service which included preparing to see the patient, [id number] patient care, completing clinical documentation, obtaining and/or reviewing separately obtained history, counseling and educating the patient/family/caregiver, ordering medications, tests, or procedures, communicating with other HCPs (not separately reported), independently interpreting results (not separately reported), communicating results to the patient/family/caregiver, and care coordination (not separately reported). Vivi Hernandez PA-C Images from the original note were not included. FOLLOW UP VISIT - ENDOSCOPY NAME: Joe [facility] NO.: [id number] DATE OF SERVICE: 12/26/2021 : 1950 REFERRING PHYSICIAN: Hector Jc MD Joe is a patient I am following with Dr. Bustillo for history of multiple colon polyps. Dr. Bustillo performed lower endoscopy on 12/19/21. The patient was found to have a 4 mm ascending colon polyp which was removed. He was aso noted to have a tattoo in the mid transverse colon marking a post-polypectomy scar, which was biopsied. Pathology demonstrated: FINAL DIAGNOSIS A. Colon, ascending, polypectomy: -Fragments of tubular adenoma B. Colon, transverse, polypectomy: -Tubular adenoma The patient notes no complaints since the procedure. VITALS: Blood pressure 128/72, pulse 101, temperature 36.8 C (98.2 F), height 177.8 cm (5' 10 ), weight 94.3 kg (208 lb), SpO2 95 %. General: patient is alert, cooperative, pleasant and in no acute distress On examination, the abdomen is benign. Assessment IMPRESSION: s/p colonoscopy with polypectomy and biopsy of scar from prior polypectomy site-incidentally positive for adenomatous tissue PLAN: The operative findings and pathology report were reviewed with the patient, and the patient has had the opportunity to ask questions and have questions answered. If the patient notes any problems or changes in bowel function, the patient should contact me immediately. Otherwise I recommend follow up endoscopy within 2-3 months due to incidental finding of recurrent tubular adenoma within prior scar/tattoo site. Patient scheduled procedure for 04/24/22. Will plan for saline lift biopsy/polypectomy at that time. Patient verbalized understanding of all above and agreed with the plan New Rx for Golytely sent Diagnoses: (D36.9) Tubular adenoma (primary encounter diagnosis) I spent a total of 24 minutes on the date of the service which included preparing to see the patient, [id number] patient care, completing clinical documentation, obtaining and/or reviewing separately obtained history, counseling and educating the patient/family/caregiver, ordering medications, tests, or procedures, communicating with other HCPs (not separately reported), independently interpreting results (not separately reported), communicating results to the patient/family/caregiver, and care coordination (not separately reported). Vivi Hernandez PA-C documented in this encounter [facility] 12-26-2021 Note HNO ID: [id number] Author: Vivi Hernandez PA-C Service: ? Author Type: Physician Penology Teacher Type: Progress Notes Filed: 01/01/2022 6:45 PM Note Text: FOLLOW UP VISIT - ENDOSCOPY NAME: Joe [facility] NO.: [id number] DATE OF SERVICE: 12/26/2021 : 1950 REFERRING PHYSICIAN: Hector Jc MD Joe is a patient I am following with Dr. Bustillo for history of multiple colon polyps. Dr. Bustillo performed lower endoscopy on 12/19/21. The patient was found to have a 4 mm ascending colon polyp which was removed. He was aso noted to have a tattoo in the mid transverse colon marking a post-polypectomy scar, which was biopsied. Pathology demonstrated: FINAL DIAGNOSIS A. Colon, ascending, polypectomy: -Fragments of tubular adenoma B. Colon, transverse, polypectomy: -Tubular adenoma The patient notes no complaints since the procedure. VITALS: Blood pressure 128/72, pulse 101, temperature 36.8 ?C (98.2 ?F), height 177.8 cm (5' 10 ), weight 94.3 kg (208 lb), SpO2 95 %. General: patient is alert, cooperative, pleasant and in no acute distress On examination, the abdomen is benign. Assessment IMPRESSION: s/p colonoscopy with polypectomy and biopsy of scar from prior polypectomy site-incidentally positive for adenomatous tissue PLAN: The operative findings and pathology report were reviewed with the patient, and the patient has had the opportunity to ask questions and have questions answered. If the patient notes any problems or changes in bowel function, the patient should contact me immediately. Otherwise I recommend follow up endoscopy within 2-3 months due to incidental finding of recurrent tubular adenoma within prior scar/tattoo site. Patient scheduled procedure for 04/24/22. Will plan for saline lift biopsy/polypectomy at that time. Patient verbalized understanding of all above and agreed with the plan New Rx for Golytely sent Diagnoses: (D36.9) Tubular adenoma (primary encounter diagnosis) I spent a total of 24 minutes on the date of the service which included preparing to see the patient, [id number] patient care, completing clinical documentation, obtaining and/or reviewing separately obtained history, counseling and educating the patient/family/caregiver, ordering medications, tests, or procedures, communicating with other HCPs (not separately reported), independently interpreting results (not separately reported), communicating results to the patient/family/caregiver, and care coordination (not separately reported). Vivi Hernandez PA-C [facility] 12-26-2021 History of Presen t illness Narrative FOLLOW UP VISIT - ENDOSCOPY NAME: Joe [facility] NO.: [id number] DATE OF SERVICE: 12/26/2021 : 1950 REFERRING PHYSICIAN: Hector Jc MD Joe is a patient I am following with Dr. Bustillo for history of multiple colon polyps. Dr. Bustillo performed lower endoscopy on 12/19/21. The patient was found to have a 4 mm ascending colon polyp which was removed. He was aso noted to have a tattoo in the mid transverse colon marking a post-polypectomy scar, which was biopsied. Pathology demonstrated: FINAL DIAGNOSIS A. Colon, ascending, polypectomy: -Fragments of tubular adenoma B. Colon, transverse, polypectomy: -Tubular adenoma The patient notes no complaints since the procedure. VITALS: Blood pressure 128/72, pulse 101, temperature 36.8 C (98.2 F), height 177.8 cm (5' 10 ), weight 94.3 kg (208 lb), SpO2 95 %. General: patient is alert, cooperative, pleasant and in no acute distress On examination, the abdomen is benign. Assessment IMPRESSION: s/p colonoscopy with polypectomy and biopsy of scar from prior polypectomy site-incidentally positive for adenomatous tissue PLAN: The operative findings and pathology report were reviewed with the patient, and the patient has had the opportunity to ask questions and have questions answered. If the patient notes any problems or changes in bowel function, the patient should contact me immediately. Otherwise I recommend follow up endoscopy within 2-3 months due to incidental finding of recurrent tubular adenoma within prior scar/tattoo site. Patient scheduled procedure for 04/24/22. Will plan for saline lift biopsy/polypectomy at that time. Patient verbalized understanding of all above and agreed with the plan New Rx for Golytely sent Diagnoses: (D36.9) Tubular adenoma (primary encounter diagnosis) I spent a total of 24 minutes on the date of the service which included preparing to see the patient, [id number] patient care, completing clinical documentation, obtaining and/or reviewing separately obtained history, counseling and educating the patient/family/caregiver, ordering medications, tests, or procedures, communicating with other HCPs (not separately reported), independently interpreting results (not separately reported), communicating results to the patient/family/caregiver, and care coordination (not separately reported). Vivi Hernandez PA-C documented in this encounter [facility] 12-19-2021 Note HNO ID: [id number] Author: Ashley Albright RN Service: ? Author Type: Registered Nurse Type: Nursing Progress Note Filed: 12/19/2021 9:55 AM Note Text: Pt received in PACU. Pt awake. Denies pain or nausea. Abd soft and non distended. Ashley Albright RN [facility] 12-13-2021 Miscellaneous Notes Formattin g of this note might be different from the original. Rx sent Patient called in requesting a script for Golytely for a colonoscopy on 12/19/[address] Bustillo. Pharmacy [facility] Rosa Thanks. documented in this encounter [facility] 06-20-2021 Miscellaneous Notes 12-19-2021 Colon [facility] documented in this encounter [facility] Tubular adenoma- Primary Benign neoplasm of unspecified site History of colonic polyps Personal history of colonic polyps [facility] Special screening for malignant neoplasms, colon- Primary Tubular adenoma Benign neoplasm of unspecified site Multiple polyps of sigmoid colon [facility] Outpatient Procedure (Routine) - Authorized Specialty Diagnoses / Procedures Referred By Contfelix rodriguez Referred To Contact [facility] Diagnoses Tubular adenoma Procedures COLONOSCOPY DIAGNOSTIC COLONOSCOPY FLX DX W/COLLJ SPEC WHEN Vivi Ramos PA-C [address] [facility] [place] [address] [facility] [place] [address] [place] [id number] Referral ID Status Reason Start Date Expiration Date Visits Requested Visits Authorized [id number] Authorized Auto-Generat ed Referral 06/20/2021 06/20/2022 1 1 [facility] Out[facility] Procedure (Routine) - Closed Specialty Diagnoses / Procedures Referred By Armani rodriguez Referred To Contact [facility] Diagnoses Tubular adenoma Multiple polyps of sigmoid colon Procedures COLONOSCOPY SCREENING COLONOSCOPY FLX DX W/COLLJ SPEC WHEN PFRMD Vivi Hernandez PA-C [address] 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 Expl anation Advance Directive(s) 06/06/2021 9:37 AM Advance Directive(s) 03/22/2020 9:46 AM Summary Purpose Family History No Family History Records Found Medications Administered Section Inactive Administered Medications - up to 3 most recent administrations Medication Order MAR Action Action Date Dose Rate Site diphenhydrAMINE 12.5-50 mg injection (BENADRYL) 12.5-50 mg, INTRAVENOUS, DIRECTED, Starting on Sat06/05/22 at 1030, Until Sat06/05/22 at 1429, DOSING DIRECTED BY PHYSICIAN FOR PROCEDURAL SEDATION ONLY, Intraprocedure Given by LIP 06/05/2022 10:28 AM EST 50 mg fentaNYL 50 mcg/mL 25-100 mcg injection (SUBLIMAZE) 25-100 mcg, INTRAVENOUS, DIRECTED, Starting on Sat06/05/22 at 1030, Until Sat06/05/22 at 1429, DOSING DIRECTED BY PHYSICIAN FOR PROCEDURAL SEDATION ONLY, Intraprocedure Given by LIP 06/05/2022 10:26 AM EST 50 mcg Additional Source Comments Source Comments (unrecognize d section and content) In the event this informatio n is protected by the Federal Confidentiality of Alcohol and Drug Abuse Patient Records regulations: The Federal rules restrict any use of the information to criminally investigate or prosecute any alcohol or drug abuse patient.[facility] the event this information is protected by the Federal Confidentiality of Alcohol and Drug Abuse Patient Records regulations: The Federal rules restrict any use of the information to criminally investigate or prosecute any alcohol or drug abuse patient.[facility] the event this information is protected by the Federal Confidentiality of Alcohol and Drug Abuse Patient Records regulations: The Federal rules restrict any use of the information to criminally investigate or prosecute any alcohol or drug abuse patient.[facility] Center[facility] the event this information is protected by the Federal Confidentiality of Alcohol and Drug Abuse Patient Records regulations: The Federal rules restrict any use of the information to criminally investigate or prosecute any alcohol or drug abuse patient.[facility] Center[facility] the event this information is protected by the Federal Confidentiality of Alcohol and Drug Abuse Patient Records regulations: The Federal rules restrict any use of the information to criminally investigate or prosecute any alcohol or drug abuse patient.[facility] the event this information is protected by the Federal Confidentiality of Alcohol and Drug Abuse Patient Records regulations: The Federal rules restrict any use of the information to criminally investigate or prosecute any alcohol or drug abuse patient.[facility] Center[facility] the event this information is protected by the Federal Confidentiality of Alcohol and Drug Abuse Patient Records regulations: The Federal rules restrict any use of the information to criminally investigate or prosecute any alcohol or drug abuse patient.[facility] Reason for Visit (unrecogniz ed section and content) Reason Comments Patient Question Bowel prep Reason Comments Follow Up colonoscopy Reason Comments Results colonoscopy Specialty Diagnoses / Procedures Referred By Contac t Referred To Contact [facility] Diagnoses Benign neoplasm, unspecified site Procedures COLONOSCOPY FLX W/REMOVAL OF FOREIGN BODY(S) [facility] [address] [place] [address] Referral ID Status Reason Start Date Expiration Date Visits Re quested Visits Authorized [id number] 1 1 Care Teams (unrecognized sec tion and content) 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 Relationship Specialty Start Date End Date Hector Jc MD [address] [facility] [place], [place] [address] PCP - General Family Practice 03/22/20 Sprinkler 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 Relationship Specialty Start Date End Date Hector Jc MD [address] [place], [place] [address] PCP - General Family Practice 03/22/20 Sprinkler 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 Relationship Specialty Start Date End Date Hector Jc MD [address] [place] [address] PCP - General Family Medicine 03/22/20 Sprinkler 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 Relationship Specialty Start Date End Date Hector Jc MD [address] [place] [address] PCP - General Family Medicine 03/22/20 (unrecognized sect ion and content) No Status Records Found INFORMATION SOURCE (unrecogn ized section and content) FOR RECORDS PERTAINING TO PATIENTS WHO ARE OR HAVE BEEN ENROLLED IN A CHEMICAL DEPENDENCY/SUBSTANCEABUSE PROGRAM, SOME INFORMATION MAY BE OMITTED. This clinical summary was aggregated from multiple sources. Caution should be exercised in using it in the provision of clinical care. This summary normalizes information from multiple sources, and as a consequence, information in this document may materially change the coding, format and clinical context of patient data. In addition, data may be omitted in some cases. CLINICAL DECISIONS SHOULD BE BASED ON THE PRIMARY CLINICAL RECORDS. [facility] [employer]. provides no warranty or guarantee of the accuracy or completeness of information in this document.
[2023-04-16 11:02] LABS: AST(SGOT) 16 U/L (15-37); Alanine Aminotransfer ALT/SGPT 25 U/L (16-61); Albumin, Serum 3.5 g/dL (3.2-5.0); Alkaline Phosphatase 75 U/L (45-117); Anion Gap 5 (5-15); BUN 16 mg/dL (7-18); BUN/Creat Ratio 13.9 RATIO (10-20); Calcium,Total 9.1 mg/dL (8.5-10.1); Chloride 110 mmol/L (98-107); Cholesterol 182 mg/dL (200); Creatinine, Serum 1.15 mg/dL (0.70-1.30); EST Glomerular Filtration Rate 66 mL/min (>60); Est Glom Filt Rate - Afr Amer 80 mL/min (>60); Globulin 3.5 g/dL (2.2-4.2); Glucose 99 mg/dL (74-106); High Density Lipoprotein 49 mg/dL; Potassium 3.8 mmol/L (3.5-5.1); Sodium Level 140 mmol/L (136-145); Triglycerides 101 mg/dL; Very Low Density Lipoprotein 20 mg/dL (5-40)
== END | disposition home or self-care (01) ==
LOC: MTLAB 08:58
PROVIDERS: PCP Family Medicine; Referring Provider Family Medicine; Visit Provider Family Medicine
DX: E78.00 Pure hypercholesterolemia, unspecified (principal)
CPT/HCPCS: 36415; 80053; 80061

== ENCOUNTER → 2023-06-28 | Outpatient (CLI) | payer MEDICARE, SELFPAY ==
--- OUTSIDE RECORDS SUMMARY | 2023-06-28 10:33 | XMS RPT_ITS | CCD ---
Author Name Unknown Address [address] [place] [address] Organization [facility] Care Team Providers Care Tile Layer Drainage Name Role Phone Unavailable Primary Care Provider Hector Stoll MD Primary Care Provider Hector Jc MD Primary Care Provider Hector Jc MD Primary Care Provider Hector Jc MD Primary Care Provider HECTOR JC [...] 83 mm[Hg] Horacio Bustillo MD Work Phone: [facility] 06-05-2022 11:28-0500 Heart rate 80 /min Horacio Bustillo MD Work Phone: [facility] 06-05-2022 11:28-0500 Respiratory rate 16 /min Horacio Bustillo MD Work Phone: [facility] 06-05-2022 11:28-0500 SaO2% (BldA) [Mass fraction] 94 % Horacio Bustillo MD Work Phone: [facility] 06-05-2022 11:28-0500 Systolic blood pressure 160 mm[Hg] Horacio Bustillo MD Work Phone: [facility] 06-05-2022 09:19-0500 Body temperature 97.7 [degF] Horacio Bustillo MD Work Phone: [facility] 06-05-2022 09:19-0500 Body weight 94.3 kg Horacio Bustillo MD Work Phone: [facility] 12-26-2021 15:32-0400 Body height 177.8 cm Viviivette Hernandez PA-C Work Phone: [facility] 12-26-2021 15:32-0400 Body temperature 98.2 [degF] Viviivette Olsenf PA-C Work Phone: [facility] 12-26-2021 15:32-0400 Body weight 94.35 kg Viviivette Hernandez PA-C Work Phone: [facility] 12-26-2021 15:32-0400 Diastolic blood pressure 72 mm[Hg] Vivi David PA-C Work Phone: [facility] 12-26-2021 15:32-0400 Heart rate 101 /min Vivi David PA-C Work Phone: [facility] 12-26-2021 15:32-0400 SaO2% (BldA) [Mass fraction] 95 % Vivi Winona PA-C Work Phone: [facility] 12-26-2021 15:32-0400 Systolic blood pressure 128 mm[Hg] Vivi Winona PA-C Work Phone: [facility] Encounters Encounter Date Encounter Type Care Provider Facility Start: 06-11-2022 Telephone encounter Vivi Gra f PA-C Work Phone: General Surgery Procedures Date Procedure Procedure Detail Performing Clinician Start: 06-05-2022 Level iv surg pathol ogy gross&microscopic exam Horacio Bustillo MD Work Phone: Start: 06-05-2022 Colonoscopy flx dx w /collj spec when pfrmd Vivi David PA-C Work Phone: Start: 06-05-2022 Colonoscopy Vivi Gra f PA-C Work Phone: Start: 12-19-2021 Colonoscopy Vivi Gra f PA-C Work Phone: Start: 06-06-2021 Colonoscopy Vivi Gra f PA-C Work Phone: Start: 02-17-2020 PT ED PATIENT INFORMATION Vivi Winona Work Phone: Start: 02-10-2020 PT ED PATIENT INFORMATION Vivi Winona Work Phone: Plan of Treatment Date Care Activity Detail Author Start: 11-01-2030 Urine microalbumin profile DTaP,Tdap,Td Vaccine (2 - Td or Tdap) [facility] Start: 06-05-2024 Colonoscopy COLONOSCOPY [facility] Start: 06-05-2024 COLORECTAL CANCER SCREENING COLORECTAL CANCER SCREENING [facility] Start: 12-19-2022 Colonoscopy COLONOSCOPY [facility] Start: 12-19-2022 COLORECTAL CANCER SCREENING COLORECTAL CANCER SCREENING [facility] Start: 12-14-2022 Covid-19 Vaccine ( season) Covid-19 Vaccine ( season) [facility] Start: 12-14-2022 Influenza [facility] Start: 06-06-2022 Colonoscopy COLONOSCOPY [facility] Start: 06-06-2022 COLORECTAL CANCER SCREENING COLORECTAL CANCER SCREENING [facility] Start: 04-23-2022 Pneumococcal Vaccine: 65+ (3 - PPSV23 or PCV20) Pneumococcal Vaccine: 65+ (3 - PPSV23 or PCV20) [facility] Start: 04-15-2022 ADVANCE DIRECTIVE DISCUSSION ADVANCE DIRECTIVE DISCUSSION [facility] Start: 04-15-2022 DEPRESSION ASSESSMENT DEPRESSION ASSESSMENT [facility] Start: 12-14-2021 Influenza vaccination INFLUENZA (#1) [facility] Start: 04-15-2021 ADVANCE DIRECTIVE DISCUSSION ADVANCE DIRECTIVE DISCUSSION [facility] Start: 04-08-2021 COVID-19 VACCINE (5 - Booster for Moderna series) COVID-19 VACCINE (5 - Booster for Moderna series) [facility] Start: 12-15-2019 Influenza vaccination INFLUENZA (#1) [facility] Start: 02-25-2016 ADVANCE DIRECTIVE DISCUSSION ADVANCE DIRECTIVE DISCUSSION [facility] Start: 02-25-2016 PNEUMOCOCCAL: 65+ (1 - PCV) PNEUMOCOCCAL: 65+ (1 - PCV) [facility] Start: 02-25-2016 PNEUMOVAX AGE 65 AND OVER WITH 5YR LOOKBACK (#1) PNEUMOVAX AGE 65 AND OVER WITH 5YR LOOKBACK (#1) [facility] Start: 2011 RSV Vaccine (1 - 1-dose 60+ series) RSV Vaccine (1 - 1-dose 60+ series) [facility] Start: 2006 PROSTATE CANCER SCREENING DISCUSSION PROSTATE CANCER SCREENING DISCUSSION [facility] Start: 2001 SHINGRIX VACCINE (1 of 2) SHINGRIX VACCINE (1 of 2) [facility] Start: 2001 Tuberculosis screening COLORECTAL CANCER SCREENING,SEE MODIFIER [facility] Start: 02-25-1996 COLOGUARD (FIT-DNA) COLOGUARD (FIT-DNA) [facility] Start: 02-25-[address] COLONOGRAPHY [facility] Start: 02-25-1996 DIABETES SCREEN DIABETES SCREEN [facility] Start: 02-25-1996 Diabetes Screening Diabetes Screening [facility] Start: 02-25-1996 FECAL OCCULT BLOOD FECAL OCCULT BLOOD [facility] Start: 02-25-1996 SIGMOIDOSCOPY SIGMOIDOSCOPY [facility] Start: 1986 Lipid 1996 panel - Serum or Plasma Lipid Screening [facility] Start: 1986 LIPID SCREEN LIPID SCREEN [facility] Start: 1970 Urine microalbumin profile DTAP,TDAP,TD (1 - Tdap) [facility] Start: 1969 HEPATITIS C SCREENING HEPATITIS C SCREENING [facility] Start: 1963 Adult depression screening assessment DEPRESSION SCREENING [facility] End: 06-20-2022 COLONOSCOPY DIAGNOSTIC COLONOSCOPY DIAGNOSTIC Endoscopy Routine Tubular adenoma 1 Occurrences starting 06/20/2021 until 06/20/2022 [facility] Work Phone: Immunizations Immunization Date Immunization Notes Care Provider Andrew shrestha 02-08-2022 influenza virus vacc ine, unspecified formulation Horacio Bustillo MD Work Phone: [facility] Payers Date Payer Category Payer Medicare HUMANA MEDICARE HUMANA GOLD PLUS [id number] 2022-Present [phone] [address] [address] [place] [address] HMO [id number] 2022 Private Health Insurance [id number] 2018 Unknown [id number] 2018 Unknown ANTHEM BLUE CROS S AND BLUE SHIELD ANTHEM MEDIBLUE HMO [id number] 2018-Present [phone] [address] [place] [address] HMO [id number] 2018 Unknown [id number] Social History Date Type Detail [facility] Start: 1950 Sex Assigned At Not on file C [facility] Start: 03-22-2020 End: 12-26-2021 Tobacco smoking status NHIS Never smoked tobacco [facility] Start: 03-22-2020 End: 12-26-2021 Tobacco use and exposure Smokeless tobacco non-user [facility] Start: 06-20-2021 End: 06-05-2022 Alcohol intake Current drinker of alcohol (finding) [facility] Start: 03-22-2020 History SDOH Alcohol Comment after work [facility] Start: 05-21-2021 End: 12-26-2021 Exposure to SARS-CoV-2 (event) Not sure [facility] Start: 05-06-2022 End: 06-05-2022 History of Social function [facility] Start: 05-06-2022 End: 06-05-2022 Tobacco use panel [facility] National Score (1-10 0), lower number is lower risk 67 [facility] Clinical Notes 06-20-2021 to 06-11-2022 Telephone Encounter [...] please review and advise. Thank you. Joe# [phone] documented in this encounter [facility] 02-21-2023 Nurse Note Patient arrived in phase II via cart left lateral position, eyes closed but open to verbal stimuli, alert to self and event, skin warm and dry, abdomen distended, slightly firm, patient denies pain or nausea, reports it just feels tight. Encouraged to pass air rectally as able. documented in this encounter [facility] 06-05-2022 History and physical note PROCEDURAL SEDATION [...] - ENDOSCOPY NAME: Joe Garcia CLINIC NO.: [id number] DATE OF SERVICE: 12/26/2021 : 1950 REFERRING [...] which included preparing to see the patient, [id number] patient care, completing clinical documentation, obtaining and/or reviewing separately obtained history, counseling and educating the patient/family/caregiver, ordering medications, tests, or procedures, communicating with other HCPs (not separately reported), independently interpreting results (not separately reported), communicating results to the patient/family/caregiver, and care coordination (not separately reported). Vivi Hernandez PA-C Images from the original note were not included. FOLLOW UP VISIT - ENDOSCOPY NAME: Joe [facility] NO.: [id number] DATE OF SERVICE: 12/26/2021 : 1950 REFERRING [...] which included preparing to see the patient, [id number] patient care, completing clinical documentation, obtaining and/or reviewing separately obtained history, counseling and educating the patient/family/caregiver, ordering medications, tests, or procedures, communicating with other HCPs (not separately reported), independently interpreting results (not separately reported), communicating results to the patient/family/caregiver, and care coordination (not separately reported). Vivi Hernandez PA-C documented in this encounter [facility] 12-26-2021 Note HNO ID: [id number] Author: Vivi Hernandez PA-C Service: ? 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 Type: Progress Notes Filed: 01/01/2022 6:45 PM Note Text: FOLLOW UP VISIT - ENDOSCOPY NAME: Joe [facility] NO.: [id number] DATE OF SERVICE: 12/26/2021 : 1950 REFERRING [...] which included preparing to see the patient, [id number] patient care, completing clinical documentation, obtaining and/or reviewing separately obtained history, counseling and educating the patient/family/caregiver, ordering medications, tests, or procedures, communicating with other HCPs (not separately reported), independently interpreting results (not separately reported), communicating results to the patient/family/caregiver, and care coordination (not separately reported). Vivi Hernandez PA-C [facility] 12-26-2021 History of Presen t illness Narrative FOLLOW UP VISIT - ENDOSCOPY NAME: Joe [facility] NO.: [id number] DATE OF SERVICE: 12/26/2021 : 1950 REFERRING [...] which included preparing to see the patient, [id number] patient care, completing clinical documentation, obtaining and/or reviewing separately obtained history, counseling and educating the patient/family/caregiver, ordering medications, tests, or procedures, communicating with other HCPs (not separately reported), independently interpreting results (not separately reported), communicating results to the patient/family/caregiver, and care coordination (not separately reported). Vivi Hernandez PA-C documented in this encounter [facility] 12-19-2021 Note HNO ID: [id number] Author: Ashley Albright RN Service: ? Author Type: Registered Nurse Type: Nursing Progress Note Filed: 12/19/2021 9:55 AM Note Text: Pt received in PACU. Pt awake. Denies pain or nausea. Abd soft and non distended. Ashley Albright RN [facility] 12-13-2021 Miscellaneous Notes Formattin g of this note might be different from the original. Rx sent Patient called in requesting a script for Golytely for a colonoscopy on 12/19/[address] Bustillo. Pharmacy [facility] [place] Thanks. documented in this encounter [facility] 06-20-2021 Miscellaneous Notes 12-19-2021 Colon ASC documented in this encounter [facility] Diagnosis Tubular adenoma- Primary Benign neoplasm of unspecified site History of colonic polyps Personal history of colonic polyps [facility] Diagnosis Special screening for malignant neoplasms, colon- Primary Tubular adenoma Benign neoplasm of unspecified site Multiple polyps of sigmoid colon [facility] (narrative)* Outpatient Procedure (Routine) - Authorized Specialty Diagnoses / Procedures Referred By Contfelix rodriguez Referred To Contact [facility] Diagnoses Tubular adenoma Procedures COLONOSCOPY DIAGNOSTIC COLONOSCOPY FLX DX W/COLLJ SPEC WHEN Vivi Ramos PA-C [address] [facility] [address] [facility] Disease [place] [address] [place] [address] Referral ID Status Reason Start Date Expiration Date Visits Requested Visits Authorized [id number] Authorized Auto-Generat ed Referral 06/20/2021 06/20/2022 1 1 [facility] Outpatient Procedure (Routine) - Closed Specialty Diagnoses / Procedures Referred By Armani rodriguez Referred To Contact [facility] Diagnoses Tubular adenoma Multiple polyps of sigmoid colon Procedures COLONOSCOPY SCREENING COLONOSCOPY FLX DX W/COLLJ SPEC WHEN PFRMD Vivi Hernandez PA-C [address] 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 Advance Directive(s) 06/06/2021 9:37 AM [...] or prosecute any alcohol or drug abuse patient.[facility] the event this information is protected by the Federal Confidentiality of Alcohol and Drug Abuse Patient Records regulations: The Federal rules restrict any use of the information to criminally investigate or prosecute any alcohol or drug abuse patient.[facility] the event this information is protected by the Federal Confidentiality of Alcohol and Drug Abuse Patient Records regulations: The Federal rules restrict any use of the information to criminally investigate or prosecute any alcohol or drug abuse patient.[facility] the event this information is protected by the Federal Confidentiality of Alcohol and Drug Abuse Patient Records regulations: The Federal rules restrict any use of the information to criminally investigate or prosecute any alcohol or drug abuse patient.[facility] the event this information is protected by the Federal Confidentiality of Alcohol and Drug Abuse Patient Records regulations: The Federal rules restrict any use of the information to criminally investigate or prosecute any alcohol or drug abuse patient.[facility] the event this information is protected by the Federal Confidentiality of Alcohol and Drug Abuse Patient Records regulations: The Federal rules restrict any use of the information to criminally investigate or prosecute any alcohol or drug abuse patient.[facility] the event this information is protected by the Federal Confidentiality of Alcohol and Drug Abuse Patient Records regulations: The Federal rules restrict any use of the information to criminally investigate or prosecute any alcohol or drug abuse patient.[facility] Reason for Visit (unrecogniz ed section and content) Reason Comments Patient Question Bowel prep Reason Comments Follow Up colonoscopy Reason Comments Results colonoscopy Specialty Diagnoses / Procedures Referred By Contac t Referred To Contact [facility] Diagnoses Benign neoplasm, unspecified site Procedures COLONOSCOPY FLX W/REMOVAL OF FOREIGN BODY(S) [facility] [address] [place] [address] Referral ID Status Reason Start Date Expiration Date Visits Re quested Visits Authorized [id number] 1 1 Care Teams (unrecognized sec tion and content) Tile Layer Drainage Relationship Specialty Start Date End Date Hector Jc MD [address] [facility] [place], [place] [id number] PCP - General Family Practice 03/22/20 Tile Layer Drainage Relationship Specialty Start Date End Date Hector Jc MD [address] [place], [place] [id number] PCP - General Family Practice 03/22/20 Tile Layer Drainage Relationship Specialty Start Date End Date Hector Jc MD [address] [place] [address] PCP - General Family Medicine 03/22/20 Tile Layer Drainage Relationship Specialty Start Date End Date Hector Jc MD [address] [place] [address] PCP - General Family Medicine 03/22/20 [...] BE BASED ON THE PRIMARY CLINICAL RECORDS. [facility]. provides no warranty or guarantee of the accuracy or completeness of information in this document.
[2023-06-28 12:59] LABS: PSA,Total- Diagnostic 1.52 ng/mL (0.0-4.0)
== END | disposition home or self-care (01) ==
LOC: MTLAB 09:51
PROVIDERS: PCP Family Medicine; Referring Provider Family Medicine; Visit Provider Family Medicine
DX: R97.20 Elevated prostate specific antigen [PSA] (principal)
CPT/HCPCS: 36415; 84153

== ENCOUNTER → 2024-02-06 | Outpatient (CLI) | payer MEDICARE, SELFPAY ==
[2024-02-06 13:02] LABS: Anion Gap 6 (5-15); BUN 15 mg/dL (7-18); BUN/Creat Ratio 13.6 RATIO (10-20); Calcium,Total 9.3 mg/dL (8.5-10.1); Chloride 109 mmol/L (98-107); EST Glomerular Filtration Rate 70 mL/min (>60); Est Glom Filt Rate - Afr Amer 84 mL/min (>60); Glucose 99 mg/dL (74-106); Potassium 3.9 mmol/L (3.5-5.1); Sodium Level 137 mmol/L (136-145)
== END | disposition home or self-care (01) ==
LOC: MFPLAB 10:34
PROVIDERS: PCP Family Medicine; Referring Provider Family Medicine; Visit Provider Family Medicine
DX: I10 Essential (primary) hypertension (principal)
CPT/HCPCS: 36415; 80048

== ENCOUNTER → 2024-04-20 | Outpatient (CLI) | payer MEDICARE, SELFPAY ==
[2024-04-20 16:13] LABS: Anion Gap 7 (5-15); BUN 13 mg/dL (7-18); Calcium,Total 8.8 mg/dL (8.5-10.1); Chloride 108 mmol/L (98-107); Cholesterol 169 mg/dL (200); Creatinine, Serum 1.08 mg/dL (0.70-1.30); EST Glomerular Filtration Rate 71 mL/min (>60); Est Glom Filt Rate - Afr Amer 86 mL/min (>60); Glucose 83 mg/dL (74-106); High Density Lipoprotein 56 mg/dL; Potassium 3.9 mmol/L (3.5-5.1); Sodium Level 139 mmol/L (136-145); Triglycerides 69 mg/dL; Very Low Density Lipoprotein 14 mg/dL (5-40)
== END | disposition home or self-care (01) ==
PROVIDERS: PCP Family Medicine; Referring Provider Family Medicine; Visit Provider Family Medicine
DX: I10 Essential (primary) hypertension (principal); E78.00 Pure hypercholesterolemia, unspecified
CPT/HCPCS: 36415; 80048; 80061

== ENCOUNTER → 2024-07-07 | Outpatient (CLI) | payer MEDICARE, SELFPAY ==
[2024-07-07 16:08] LABS: Hematocrit 44.1 % (40-54); Hemoglobin 14.3 g/dL (13.0-16.5); Mean Corp Hgb Conc 32.4 g/dL (32-36); Mean Corpuscular Hgb 30.6 pg (27.0-32.0); Mean Corpuscular Volume 94.2 fL (80-94); Mean Platelet Vol. 10.4 fl (6.2-12.0); Platelet Count 251 K/mm3 (150-450); RBC Distribution Width CV 11.9 % (11.6-14.6); RBC Distribution Width SD 41.3 fl (35.1-43.9); Red Blood Count 4.68 M/mm3 (4.6-6.2); White Blood Count 6.9 K/mm3 (4.4-11.0)
[2024-07-07 17:23] LABS: Anion Gap 10 (5-15); BUN 14 mg/dL (4-19); BUN/Creat Ratio 12.8 RATIO (10-20); Calcium,Total 9.1 mg/dL (7.6-11.0); Carbon Dioxide 23.5 mmol/L (21.0-32.0); Chloride 104 mmol/L (98-108); EST Glomerular Filtration Rate 71 (>60); Glucose 87 mg/dL (70-99); Sodium Level 137 mmol/L (133-145)
[2024-07-07 17:27] LABS: PSA,Total - Annual Screen 1.37 ng/mL (0.02-4.00)
== END | disposition home or self-care (01) ==
LOC: MFPLAB 10:17
PROVIDERS: PCP Family Medicine; Referring Provider Family Medicine; Visit Provider Family Medicine
DX: Z12.5 Encounter for screening for malignant neoplasm of prostate (principal); T14.8XXA Other injury of unspecified body region, initial encounter; I10 Essential (primary) hypertension
CPT/HCPCS: 36415; 80048; 84153; 85027; G0103

== ENCOUNTER 2024-11-27 10:07 | Emergency (ER) | payer MEDICARE, SELFPAY ==
[2024-11-27 10:08] VITALS: BP 187/94; PULSE 87; RESP 18; TEMP 36.5; O2SAT 97; BMI 30.9
[2024-11-27 10:10] VITALS: BP 187/94; PULSE 85; RESP 18; TEMP 36.5; O2SAT 97
--- NOTE | 2024-11-27 10:53 | CT_ITS ---
PROCEDURE: BRAIN/HEAD WITHOUT CONTRAST 11/27/2024 REASON FOR EXAM: BILATERAL FACIAL NUMBNESS. TECHNIQUE: BRAIN/HEAD WITHOUT CONTRAST Coronal and Sagittal reconstruction series were provided. One or more dose reduction techniques were used (e.g., Automated exposure control, adjustment of the mA and/or kV according to patient size, use of iterative reconstruction technique. RADIATION DOSE SUMMARY: CTDlvol: 44.99 mGy DLP: 846.73 mGycm COMPARISON: None FINDINGS: Brain: Within normal limits for age CSF Spaces: Mild generalized cerebral atrophy Sinuses/Mastoids: Clear at visualized levels Bones: Unremarkable CT/Brain/Head without Contrast IMPRESSION: Mild cerebral atrophy. No acute abnormality is seen. Reading Location: [place] [id number]
--- NOTE | 2024-11-27 10:54 | EX.ED.DYSGE1 ---
HPI History of Present Illness Chief Complaint: Numb/Ting Informant: patient Onset/Context/Timing Onset: Today Current Severity: Mild Maximum Severity: Mild Narrative Narrative: 74-year-old male history of high cholesterol hypertension. Presents today for bilateral facial numbness. Started around 8:45 am this morning. Said his chronic rash since around July is seen 2 different doctors for this in a dermatology office. Says it itches. He has been on prednisone and steroid creams. Currently equipment service associate office where he saw physician preschool assistant director has him on doxycycline. He denies any significant change in his vision. No trouble speaking. No weakness or numbness to his arms or legs. Prior similar symptoms: No Recent Illness/Hospitalization: No PFSH [facility] Medical History High blood cholesterol Colon adenomas Home Medications ?Medication ?Instructions ?Recorded ?Last Taken ?Type pravastatin 10 mg tablet 40 mg PO DAILY 01/04/15 Unknown History budesonide-formoterol HFA 80 2 puff inhalation PRN PRN Sob &/Or 07/05/17 Unknown History mcg-4.5 mcg/actuation aerosol Wheezing inhaler (Symbicort) doxazosin 2 mg tablet (Cardura) 2 mg PO QHS 07/05/17 Unknown History lansoprazole 15 mg capsule,delayed 15 mg PO PRN PRN Heartburn 07/05/17 Unknown History release (Prevacid) fluconazole 200 mg tablet 200 mg PO DAILY 7 days #7 tabs 11/27/24 Unknown Rx (Diflucan) Allergy/AdvReac Type Severity Reaction Status Date / Time No Known Allergies Allergy Verified 11/27/24 10:10 Surgical History S/P colonoscopy Social History Smoking Status: Never smoker ROS ROS ED ROS Narrative Rash. Itching. Today facial numbness. Constitutional Constitutional ED: Denies chills or fever(s) Eyes Eyes: Denies blurry vision ENT ENT ED: Denies ear pain Cardiovascular Cardiovascular: Denies chest pain Respiratory/Chest Respiratory/Chest: Denies cough or dyspnea Gastrointestinal Gastrointestinal: Denies abdominal pain Genitourinary Genitourinary ED: Denies dysuria or hematuria Musculoskeletal Musculoskeletal: Denies arthralgias Integumentary Reports rash; Denies abscess or Abrasions Neurologic Neurologic: Denies headache(s) Psychiatric Psychiatric: Denies anxiety Endocrine Endocrinology: Denies cold intolerance Hematologic/Lymphatic Hematologic/Lymphatic: Reports none Allergic/Immunologic Allergic/Immunologic ED: Denies mouth swelling, tongue swelling or urticaria EXAM Physical Exam Narrative Exam Narrative: Well-appearing 74-year-old male. Vital signs stable afebrile. No acute distress. Companied by his . H EENT exam pupils round react light. Extra motions are intact. No facial droop. Normal speech. Neck nontender. Lungs clear to auscultation bilaterally. Heart regular rhythm rate about 85 no murmur. Chest wall ribs nontender. Abdomen soft nontender. Moving all 4 extremities. Normal archivist economic history strength. No drift. Normal dorsi plantarflexion. Back nontender. Neurologically the patient is awake alert. Answer questions following commands. Again no facial droop. Normal speech. Normal archivist economic history strength. No drift of either upper or lower extremities. NIH is 0. Const Vital Signs: 11/27/24 10:08 11/27/24 10:10 11/27/24 11:08 Temperature 97.7 F L 97.7 F L Temperature Source Oral Oral Pulse Rate 87 85 83 Respiratory Rate 18 18 17 Blood Pressure 187/94 H 187/94 H Blood Pressure Mean 125 125 Pulse Ox 97 97 96 Oxygen Delivery Method Room Air Room Air Room Air 11/27/24 12:08 Temperature Temperature Source Pulse Rate 68 Respiratory Rate Blood Pressure 176/84 H Blood Pressure Mean 114 Pulse Ox 98 Oxygen Delivery Method Positive well nourished and well developed General Appearance ED: well developed; Negative for pallor HEENT Reports moist mucous membranes Eyes PERRL and EOMs intact bilaterally General Eye ED: Negative for pale conjunctiva or scleral icterus Neck no lymphadenopathy, supple and no JVD Chest Wall inspection of chest normal Resp normal respiratory effort and clear to auscultation bilaterally Cardio regular rate, regular rhythm, S1 normal heart sound, S2 normal heart sound and no murmurs GI normal to inspection, nondistended, normoactive bowel sounds, non-tender, non-distended and no masses Auscultation: normoactive bowel sounds Palpation: Negative for soft, tender or guarding Back/Spine no CVA tenderness General Back: Negative for CVA tenderness Cervical Spine: Negative for cervical spine tenderness Thoracic Spine / Upper Back: Negative for thoracic spinal tenderness or paraspinal muscle tenderness Lumbar Spine / Lower Back: Negative for lumbar spinal tenderness Extremity normal to inspection General Extremety ED: Yes tenderness; Negative for edema General Extremity: Negative for edema Neuro oriented x3, CN's II-XII intact bilaterally and no sensory deficits noted Sensorium / Orientation: alert; Negative for orientation impaired, lethargic or stuporous Motor Exam: strength 5/5 throughout; Negative for general weakness or strength abnormal Psych mental status grossly normal Skin No no rashes or lesions noted, no wounds and skin turgor normal General Skin Exam: Negative for jaundice or pallor Rashes: rashes noted Wounds: Negative for wounds noted MDM MDM MDM Narrative Medical decision making narrative: 74-year-old male presents with facial numbness. He is neurologic exam is normal. Clinically I strongly do not believe this to be a stroke. He is on a lot of Benadryl and Zyrtec. He has a normal neurologic exam and NIH is 0. I will CT his brain get a CBC and chemistry make sure his electrolytes are off. No rash to me looks like more of an allergic reaction but he is really not had any help with steroids or steroid creams. Currently does not look like an infection. Repeat exam patient is doing well around 12:42 PM. Went over his CAT scan and lab work. He will be discharged home with outpatient follow-up. Patient only given a Kenalog shot for possible allergic reaction. Diflucan for yeast infection. Pepcid for the itching. History & Record Review Discussion w/independent historian: Patient and Family Additional record(s) reviewed:: Prior inpatient record, Prior outpatient record, Prior ED visit and Prior labs Lab Data Attestation: I reviewed the patient's lab results. Lab results narrative: CBC normal. White count 8. H&H 15 and 46. Platelets 234. Electrolytes unremarkable gap 14. BUN and creatinine 18 and 1.2. Glucose 94. Labs: Laboratory Results - last 24 hr 11/27/24 10:10 WBC 8.3 RBC 5.05 Hgb 15.5 Hct 46.1 MCV 91.3 MCH 30.7 MCHC 33.6 RDW Std Deviation 40.2 RDW Coeff of Tez 12.0 Plt Count 234 MPV 9.7 Immature Gran % (Auto) 0.600 Neut % (Auto) 59.7 Lymph % (Auto) 24.8 Stafford % (Auto) 8.5 Eos % (Auto) 6.0 H Baso % (Auto) 0.4 Absolute Neuts (auto) 5.0 Absolute Lymphs (auto) 2.06 Nucleated RBC % 0 Sodium 137 Potassium 4.0 Chloride 102 Carbon Dioxide 21.6 Anion Gap 14 BUN 18 Creatinine 1.22 H Estim Creat Clear Calc 63.31 Est GFR (MDRD) Non-Af 63 BUN/Creatinine Ratio 15.0 Glucose 94 Calcium 9.0 Radiography Diagnostic Testing: Clinical Impression(s) from Imaging Studies Brain CT 11/27/24 10:53 IMPRESSION: Mild cerebral atrophy. No acute abnormality is seen. Reading Location: [place] [id number] Discharge Plan Triage Chief Complaint: Numb/Ting ED Provider: Pedro Rivera Dx/Rx/DC Orders Clinical Impression: Paresthesia, Rash Instructions: Nonspecific Skin Rash, ED Paresthesia Prescriptions: New fluconazole [Diflucan] 200 mg tablet 200 mg PO DAILY 7 Days Qty: 7 0RF No Action pravastatin 10 MG tablet 40 mg PO DAILY lansoprazole [Prevacid] 15 MG capsule 15 mg PO PRN PRN (Reason: Heartburn) doxazosin [Cardura] 2 MG tablet 2 mg PO QHS budesonide-formoterol [Symbicort] 1 INHALER inhaler 2 puff inhalation PRN PRN (Reason: Sob &/Or Wheezing) Primary Care Provider: Hunter Jc Referrals: Hunter Jc MD [Primary Care Provider] - As Needed Nova Avalos MD [Non-Staff] - As soon as possible Activity Restrictions/Additional Instructions: Follow-up with the equipment service associate office but you need to see the equipment service associate. Follow-up your primary care physician as needed. Pepcid twice daily to help with the itching. Finish the antibiotic. Diflucan and antifungal medication. Take daily. Till gone. Antifungal cream for your armpit and groin. Print Language: Ethiopian Disposition Disposition: Home, Self Care
[2024-11-27 11:02] LABS: Hematocrit 46.1 % (40-54); Hemoglobin 15.5 g/dL (13.0-16.5); Immature Granulocytes Count 0.050 X10^3/uL (0.0-0.0); Mean Corp Hgb Conc 33.6 g/dL (32-36); Mean Corpuscular Volume 91.3 fL (80-94); Mean Platelet Vol. 9.7 fl (6.2-12.0); NRBC Flagged by Analyzer 0 % (0-5); Platelet Count 234 K/mm3 (150-450); RBC Distribution Width CV 12.0 % (11.6-14.6); RBC Distribution Width SD 40.2 fl (35.1-43.9); Red Blood Count 5.05 M/mm3 (4.6-6.2); White Blood Count 8.3 K/mm3 (4.4-11.0)
[2024-11-27 11:08] VITALS: PULSE 83; RESP 17; O2SAT 96
[2024-11-27 11:39] LABS: Anion Gap 14 (5-15); BUN 18 mg/dL (4-19); BUN/Creat Ratio 15.0 RATIO (10-20); Calcium,Total 9.0 mg/dL (7.6-11.0); Carbon Dioxide 21.6 mmol/L (21.0-32.0); Chloride 102 mmol/L (98-108); Estimated Creatinine Clearance 63.31 ml/min (50-250); Glucose 94 mg/dL (70-99); Potassium 4.0 mmol/L (3.3-5.1)
[2024-11-27 12:08] VITALS: BP 176/84; PULSE 68; O2SAT 98
[2024-11-27 12:57] VITALS: BP 176/84; PULSE 68; RESP 17; TEMP 36.5; O2SAT 98
== END 2024-11-27 13:12 | disposition home or self-care (01) ==
PROVIDERS: Emergency Provider Emergency Medicine; PCP Family Medicine; Visit Provider Emergency Medicine
DX: R20.2 Paresthesia of skin (principal); R21 Rash and other nonspecific skin eruption; B37.9 Candidiasis, unspecified; E78.00 Pure hypercholesterolemia, unspecified; I10 Essential (primary) hypertension; Z79.899 Other long term (current) drug therapy
CPT/HCPCS: 70450; 80048; 85025; 96372; 99283; A4216

== ENCOUNTER → 2024-12-04 | Outpatient (CLI) | payer MEDICARE, SELFPAY ==
[2024-12-04 17:43] LABS: Color, Urine Yellow (Yellow); Glucose, Dipstick 100 mg/dl (Normal); Ketone-Dipstick 15 mg/dl (Negative); Leukocyte Esterase-Dipstick Negative /ul (Negative); Nitrite-Dipstick Negative (Negative); Occult Blood-Urine 50 /ul (Negative); Protein-Dipstick 30 mg/dl (Negative); Specific Gravity, Urine 1.025 (1.002-1.030); Urine Bilirubin Dipstick Negative (Negative)
[2024-12-04 17:44] LABS: Hematocrit 47.2 % (40-54); Hemoglobin 15.8 g/dL (13.0-16.5); Immature Granulocytes Count 0.070 X10^3/uL (0.0-0.0); Mean Corp Hgb Conc 33.5 g/dL (32-36); Mean Corpuscular Volume 91.3 fL (80-94); Mean Platelet Vol. 10.3 fl (6.2-12.0); NRBC Flagged by Analyzer 0 % (0-5); Platelet Count 278 K/mm3 (150-450); RBC Distribution Width CV 12.1 % (11.6-14.6); RBC Distribution Width SD 40.3 fl (35.1-43.9); Red Blood Count 5.17 M/mm3 (4.6-6.2); White Blood Count 10.8 K/mm3 (4.4-11.0)
[2024-12-04 18:37] LABS: AST(SGOT) 19 U/L (<=37); Alanine Aminotransfer ALT/SGPT 21 U/L (<=46); Albumin, Serum 4.4 g/dL (3.4-4.8); Alkaline Phosphatase 66 U/L (40-129); Anion Gap 14 (5-15); BUN 21 mg/dL (4-19); BUN/Creat Ratio 15.1 RATIO (10-20); CPK Total, Creatine Kinase 68 U/L (24-195); Calcium,Total 10.0 mg/dL (7.6-11.0); Carbon Dioxide 22.1 mmol/L (21.0-32.0); Chloride 102 mmol/L (98-108); Globulin 2.7 g/dL (2.2-4.2); Glucose 95 mg/dL (70-99); Potassium 4.3 mmol/L (3.3-5.1)
[2024-12-07 08:07] LABS: ANTINUCLEAR ANTIBODIES DIRECT Negative (Negative); Anti-dsDNA Ab <1 IU/mL (0-9)
== END | disposition home or self-care (01) ==
LOC: MTLAB 15:40
PROVIDERS: PCP Family Medicine; Referring Provider Physician Assistant Medical; Visit Provider Physician Assistant Medical
DX: L30.8 Other specified dermatitis (principal)
CPT/HCPCS: 36415; 80053; 81002; 82085; 82550; 85025; 86038; 86225

== ENCOUNTER → 2024-12-28 | Outpatient (CLI) | payer MEDICARE, SELFPAY ==
[2024-12-28 11:48] LABS: Mucous, Urine 0 SEEN /hpf (<or=2+); Red Blood Cells-Urine 0 SEEN /hpf (0-5); Squamous Epithelial Cells - UA 0 SEEN /hpf (0-5)
[2024-12-28 15:31] LABS: Color, Urine Yellow (Yellow); Glucose, Dipstick 250 mg/dl (Normal); Ketone-Dipstick Negative (Negative); Leukocyte Esterase-Dipstick Negative /ul (Negative); Nitrite-Dipstick Negative (Negative); Occult Blood-Urine 10 /ul (Negative); Protein-Dipstick 30 mg/dl (Negative); Specific Gravity, Urine 1.015 (1.002-1.030); Urine Bilirubin Dipstick Negative (Negative)
[2024-12-28 16:05] LABS: Anion Gap 10 (5-15); BUN 18 mg/dL (4-19); BUN/Creat Ratio 16.3 RATIO (10-20); Calcium,Total 8.9 mg/dL (7.6-11.0); Carbon Dioxide 23.5 mmol/L (21.0-32.0); Chloride 107 mmol/L (98-108); Glucose 89 mg/dL (70-99); Potassium 4.1 mmol/L (3.3-5.1)
[2024-12-28 16:10] LABS: CRP < 3.00 mg/L (0.0-3.0)
[2024-12-30 16:09] LABS: PROEL- A/G Ratio 1.5 (0.7-1.7); PROEL- Albumin 3.5 g/dL (2.9-4.4); PROEL- Alpha-1 Globulin 0.2 g/dL (0.0-0.4); PROEL- Alpha-2 Globulin 0.6 g/dL (0.4-1.0); PROEL- Beta Globulin 1.0 g/dL (0.7-1.3); PROEL- Gamma Globulin 0.6 g/dL (0.4-1.8); PROEL- Globulin, Total 2.4 g/dL (2.2-3.9); PROEL- TOTAL PROTEIN 5.9 g/dL (6.0-8.5); PROEL-M-Spike Not Observed g/dL (Not Observed)
== END | disposition home or self-care (01) ==
LOC: MFPLAB 11:47
PROVIDERS: PCP Family Medicine; Visit Provider Family Medicine
DX: R81 Glycosuria (principal); R31.9 Hematuria, unspecified; R21 Rash and other nonspecific skin eruption
CPT/HCPCS: 36415; 80048; 81001; 83036; 84165; 85652; 86140; 87086

== ENCOUNTER → 2025-01-05 | Outpatient (CLI) | payer MEDICARE, SELFPAY ==
[2025-01-05 15:24] LABS: Hematocrit 47.2 % (40-54); Hemoglobin 15.5 g/dL (13.0-16.5); Immature Granulocytes Count 0.040 X10^3/uL (0.0-0.0); Mean Corp Hgb Conc 32.8 g/dL (32-36); Mean Corpuscular Volume 94.0 fL (80-94); Mean Platelet Vol. 10.6 fl (6.2-12.0); NRBC Flagged by Analyzer 0 % (0-5); Platelet Count 238 K/mm3 (150-450); RBC Distribution Width CV 12.6 % (11.6-14.6); RBC Distribution Width SD 43.7 fl (35.1-43.9); Red Blood Count 5.02 M/mm3 (4.6-6.2); White Blood Count 6.3 K/mm3 (4.4-11.0)
[2025-01-05 15:31] LABS: AST(SGOT) 23 U/L (<=37); Alanine Aminotransfer ALT/SGPT 29 U/L (<=46); Albumin, Serum 4.4 g/dL (3.4-4.8); Alkaline Phosphatase 63 U/L (40-129); Anion Gap 12 (5-15); BUN 12 mg/dL (4-19); BUN/Creat Ratio 10.8 RATIO (10-20); Calcium,Total 9.1 mg/dL (7.6-11.0); Carbon Dioxide 23.6 mmol/L (21.0-32.0); Chloride 104 mmol/L (98-108); Globulin 2.5 g/dL (2.2-4.2); Glucose 90 mg/dL (70-99); Potassium 3.9 mmol/L (3.3-5.1)
[2025-01-07 15:08] LABS: Carcinoembryonic Antigen 1.1 ng/mL (0.0-4.7); Immunoglobulin A 230 mg/dL (61-437)
[2025-01-10 00:07] LABS: Bluegrass, Kentucky <0.10 kU/L (Class 0); Cat Hair/Dander, Standard <0.10 kU/L (Class 0); Cedar, Mountain <0.10 kU/L (Class 0); Cockroach, American <0.10 kU/L (Class 0); Dog Epithelia <0.10 kU/L (Class 0); Egg, Whole <0.10 kU/L (Class 0); Elm, American White <0.10 kU/L (Class 0); Hazelnut Tree <0.10 kU/L (Class 0); Hickory, White <0.10 kU/L (Class 0); Mulberry, White <0.10 kU/L (Class 0); Mussels <0.10 kU/L (Class 0); Oak, White <0.10 kU/L (Class 0); Pigweed, Rough <0.10 kU/L (Class 0); Plantain, English <0.10 kU/L (Class 0); Ragweed, Short/Common <0.10 kU/L (Class 0); Sheep Sorrel(Dock) <0.10 kU/L (Class 0); Sycamore, American <0.10 kU/L (Class 0)
== END | disposition home or self-care (01) ==
LOC: MFPLAB 12:06
PROVIDERS: PCP Family Medicine; Visit Provider Family Medicine
DX: R21 Rash and other nonspecific skin eruption (principal); K63.5 Polyp of colon
CPT/HCPCS: 36415; 80053; 82378; 82784; 83516; 85025; 86003; 86005; 86255

== ENCOUNTER → 2025-02-01 | Outpatient (CLI) | payer MEDICARE, SELFPAY ==
--- OUTSIDE RECORDS SUMMARY | 2025-01-29 08:27 | XMS RPT_ITS ---
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 Name Role Phone LEXI BURNETT Attending Unavailable HECTOR DEXTER Primary Care Unavailabl YOSEPH Griffin Attending Unavailable LEXI BURNETT Referring Unavailable HECTOR DEXTER Primary Care Unavailabl e PROBLEMS DATE TYPE CONDITION / CODE ATTENDING STATUS OSBALDO E 01/29/2025 Active Heart burn / R12(ICD-10) YOSEPH ALEMAN Active [facility] 01/29/2025 Active Unintentional we ight loss / R63.4(ICD-10) YOSEPH ALEMAN Active [facility] 01/29/2025 Active Screen for colon cancer / Z12.11(ICD-10) YOSEPH ALEMAN Active [facility] 01/29/2025 Active History of colon ic polyps / Z86.0100(ICD-10) YOSEPH ALEMAN Active [facility] 01/29/2025 Active Family history o f celiac disease / Z83.79(ICD-10) YOSEPH ALEMAN Active [facility] 01/29/2025 Active Encounter for sc reening for malignant neoplasm of colon / Z12.11(ICD-10) YOSEPH ALEMAN Active [facility] 01/29/2025 Active Mass of colon / K63.89(ICD-10) YOSEPH ALEMAN Active [facility] PROCEDURES No Procedure Records Found RESULTS [id number] Observed: 01/29/2025 10:37 AM Status: COMPLETED Source: [facility] HNO ID: [id number] Author: NICHOLE CHEN RN Service: ? Author Type: Registered Nurse Type: [id number] Filed: 01/29/2025 10:37 Note Text: The patient received a copy of Colonoscopy and EGD discharge instructions that contain information for how to contact the physician who performed the procedure and when to seek medical care. HISTORY PHYSICAL Observed: 01/29/2025 10:05 AM Status: COMPLETED Source: [facility] HNO ID: [id number] Author: YOSEPH ALEMAN MD Service: General Surgery Author Type: Physician Type: H&P Filed: 01/29/2025 09:41 Note Text: HISTORY AND PHYSICAL Rosalind Koenig : 1950 REFERRING PHYSICIAN: No referring provider defined for this encounter. CHIEF COMPLAINT: Patient presents with: Consult: colonoscopy HPI: Rosalind is a 74 year old male referred for endoscopy. Rosalind notes due for screening colonoscopy-hx of polyps (2022). Rosalind recently developed a diffuse rash all over his upper trunk, head, neck and arms-present since July. He was seen by derm and it was determined to be "internal". PCP completed celiac work up, CEA, CT abd/pelv, referral to allergy AND hematology. -lab work pending 01/07 -no ct scan scheduled yet- waiting to see if it is covered by insurance Rosalind denies abdominal pain. Rosalind denies diarrhea. Rosalind denies constipation. Rosalind denies a change in bowel habits. Rosalind denies melena. Rosalind denies bright red blood per rectum. Rosalind notes daughter with celiac dx Rosalind notes heartburn. -recent increase, worse if eats bread -typically controlled with pepcid prn but seems to be taking it daily now Rosalind notes a distant history of dysphagia. -has resolved since starting the pepcid Rosalind notes unintentional weight loss -down 16 lbs Rosalind notes decreased appetite due to lack of taste Rosalind denies N/V/epigastric pain Rosalind's medical history is significant for HTN,HLD and asthma. He denies CP, SOB, dizziness, palpitations, syncope, edema, recent hospitalizations Rosalind has undergone prior endoscopy. Last colonoscopy was 05/[address] Kruse at [facility]. Sedation: Midazolam 6 mg IV, Fentanyl 100 micrograms IV, Diphenhydramine 50 mg IV Impression: - One diminutive polyp in the ascending colon, removed with a cold biopsy forceps. Resected and retrieved. - One 8 mm polyp in the mid transverse colon, removed with a cold snare. Resected and retrieved. Treated with argon beam coagulation. - The examination was otherwise normal on direct and retroflexion views. FINAL DIAGNOSIS A. Ascending colon polyp, biopsy: - Fragments of tubular adenoma. B. Transverse colon polyp, biopsy: - Multiple fragments of tubulovillous adenoma. CURRENT MEDICATIONS Current Outpatient Medications Medication Sig famotidine (PEPCID AC PO) Take 1 dose by mouth as needed (acid reflux). predniSONE EC 5 mg Delayed Release Tab Take 5 mg by mouth two times a day. diphenhydramine HCl (ALLERGY MEDICATION ORAL) Take by mouth as needed. doxazosin (CARDURA) 4 mg tablet Take 4 mg by mouth daily at bedtime. pravastatin (PRAVACHOL) 40 mg tablet Take 40 mg by mouth once daily. ALBUTEROL INHALATION Inhale as instructed as needed. peg 3350-Electrolytes (GOLYTELY) 236-22.74-6.74 -5.86 gram suspension Refer to printed prep instructions from your provider. fluticasone/vilanterol (BREO ELLIPTA INHALATION) Inhale as instructed once daily. esomeprazole magnesium (NEXIUM 24HR ORAL) Take by mouth as needed. No current facility-administered medications for this visit. ALLERGIES: Patient has no known allergies. PAST MEDICAL HISTORY PAST MEDICAL HISTORY Diagnosis Date Asthma Benign intracranial hypertension Hyperlipemia Hypertension PAST SURGICAL HISTORY PAST SURGICAL HISTORY Procedure Laterality Date COLONOSCOPY 06/06/2021 repeat in 6 months COLONOSCOPY SCREENING 12/19/2021 repeat in 6 months COLONOSCOPY SCRN NOT HIGH RISK 03/22/2020 TONSILLECTOMY HX FAMILY HISTORY FAMILY HISTORY Problem Relation Age of Onset No Known Problems Mother No Known Problems Father [SOCIAL HISTORY] [SOCIAL HISTORY] Social History Tobacco Use Smoking status: Never Smokeless tobacco: Never Vaping Use Vaping status: Never Used Substance Use Topics Alcohol use: Yes Alcohol/week: 2.0 - 3.0 standard drinks of alcohol Types: 2 - 3 Cans of beer per week Comment: after work Drug use: Never REVIEW OF SYMPTOMS: REVIEW OF SYSTEMS: General: The patient + fatigue, + weight loss, denies weight gain, denies feeling hot, and feelings of cold. Eyes: The patient denies glaucoma, denies eye injury/surgery, + glasses or contacts. Ear/Nose/Throat: The patient denies allergies, + hayfever, denies ear infections, and denies bloody noses. Cardiovascular: The patient denies chest pain, denies heart disease, + high blood pressure, + high cholesterol, and denies poor circulation. Respiratory: The patient denies tuberculosis, denies pneumonia, denies frequent cough, denies shortness of breath, and denies coughing up blood. Gastrointestinal: The patient denies difficulty swallowing, + acid reflux, denies ulcers, denies jaundice/hepatitis, denies gallbladder problems, denies vomiting, denies black or tarry stools, denies hemorrhoids, denies bleeding from rectum, denies diverticulitis, denies constipation, denies diarrhea, denies loss of stool control, and denies hernias. Kidney/Bladder: The patient denies kidney stones, denies urine infections, and denies bloody urine. Skin: The patient denies a history of skin cancer, denies bleeding/changing moles, and + a history of skin rash. Neurologic: The patient denies a history of epilepsy/convulsions, denies headaches, denies head/spinal injuries, and denies stroke/TIA. Psychiatric: The patient denies psychiatric medications, denies depression, and denies voices. Endocrine: The patient denies thyroid disorders, denies diabetes, and denies hormonal problems. Hematologic: The patient + a history of bruising, denies bleeding, and denies anemia. Infections: The patient denies a history of measles and mumps, denies rheumatic fever, and denies sexually transmitted diseases. Musculoskeletal: The patient denies back pain/injury, denies back problems, denies sciatica, denies knee/foot trouble, denies arthritis, or denies gout. PHYSICAL EXAMINATION: General: The patient is 74 year old, male well nourished, well hydrated in no acute distress. The patient is oriented to time, place, and person. VITALS: Blood pressure 162/62, pulse 65, resp. rate 14, weight 91.5 kg (201 lb 12.8 oz), SpO2 97%. Body mass index is 28.96 kg/m?. HEENT: Normal cephalic, ataumatic, pupils are equally round, sclera are anicteric, mucous membranes are moist, oropharynx is clear. Neck has no masses or asymmetry . Respiratory: Clear to auscultation. Cardiac: Regular rate and rhythm. Abdominal exam: Soft, nontender, with no palpable masses. No hepatosplenomegaly. No palpable hernias. Extremities: no clubbing or cyanosis Skin: flat, diffuse erythema all over neck/bilateral cheeks and bilateral lower arms. LABORATORY VALUES: As Noted RADIOLOGIC STUDIES: As Noted Assessment IMPRESSION: screen for colon cancer, history of colon polyps, heart burn, unintentional weight loss, family history of celiac disease PLAN: I have reviewed my findings with the surgeon. Will plan for upper and lower endoscopy. We discussed the risks and benefits of the planned endoscopy in terms understandable to the patient. I have informed the patient that complications can occur including failure to complete the endoscopy and perforation. Rosalind had the opportunity to ask questions concerning the planned endoscopy. Rosalind freely consents to surgery. I plan to use Golytely bowel preparation I have explained to the patient the difference between IV conscious sedation and MAC anesthesia - and I have offered either, according to the patient's wishes. I have explained that with IV conscious sedation there is no anesthesia provider available and therefore there is a limitation of the amount of IV medications that can be given and that the patient may wake up in the middle of the procedure and/or experience pain/discomfort during the procedure. Further discussion was done and the patient was given the opportunity to ask questions and all questions were answered. Rosalind chooses IV conscious sedation. Rosalind was counseled that if there are changes in his/her medical condition, to let the office know if surgery should proceed. If there are changes in patient's medical condition from time of this encounter to the day of the procedure that preclude anesthesia, patient may have procedure cancelled for patient's safety. Diagnoses: (R12) Heart burn (primary encounter diagnosis) (R63.4) Unintentional weight loss (Z12.11) Screen for colon cancer (Z86.0100) History of colonic polyps (Z83.79) Family history of celiac disease Portions of this documentation were copied and pasted from previous office visit notes in order to provide a cohesive continuity of the history. The note has been reviewed and edited and updated as necessary. Lexi Burnett APRN.LUIS UPDATED HISTORY AND PHYSICAL EXAMINATION SERVICE DATE: 01/29/2025 SERVICE TIME: 9:41 AM PHYSICAL EXAM MUST BE COMPLETED ON ADMISSION The History and Physical (completed in the past 30 days) has been reviewed and the patient has been examined. The contents accurately reflect the patient's condition with the following additions or revisions since the HANDP was completed. Examination indicates no changes. This HANDP can be found in the attached. SIGNATURE: Yoseph Aleman III, MD PATIENT NAME: Rosalind Koenig DATE: January 29, 2025 TIME: 9:41 AM UPPER GI ENDOSCOPY Observed: 01/29/2025 9:37 AM Status: F Source: [facility] Gastrointestinal Endoscopy Patient Name: Rosalind Koenig Procedure Date: 01/29/2025 9:37 AM Date of : 1950 Admit Type: Outpatient Age: 74 Gender: Male Note Status: Finalized Procedure: Upper GI endoscopy Indications: Heartburn, Weight loss Providers: Yoseph Aleman MD Patient Profile: This is a 74 year old male. Refer to note in patient chart for documentation of history and physical. Referring Physician: Lexi Burnett (Referring MD) Medicines: Fentanyl 100 micrograms IV, Midazolam 5 mg IV, Diphenhydramine 50 mg IV, Benzocaine spray Complications: No immediate complications. Estimated blood loss: Minimal. Requesting Provider: Procedure: Pre-Anesthesia Assessment: - Prior to the procedure, a History and Physical was performed, and patient medications and allergies were reviewed. The patient's tolerance of previous anesthesia was also reviewed. The risks and benefits of the procedure and the sedation options and risks were discussed with the patient. All questions were answered, and informed consent was obtained. Prior Anticoagulants: The patient has taken no anticoagulant or antiplatelet agents. ASA Grade Assessment: III - A patient with severe systemic disease. After reviewing the risks and benefits, the patient was deemed in satisfactory condition to undergo the procedure. After obtaining informed consent, the endoscope was passed under direct vision. Throughout the procedure, the patient's blood pressure, pulse, and oxygen saturations were monitored continuously. The Endoscope was introduced through the mouth, and advanced to the second part of duodenum. The upper GI endoscopy was accomplished without difficulty. The patient tolerated the procedure well. Moderate Sedation: The administration of moderate sedation was initiated at 09:48. Moderate (conscious) sedation was personally administered by the endoscopist. The following parameters were monitored: oxygen saturation, heart rate, blood pressure, respiratory rate, EKG, adequacy of pulmonary ventilation, and response to care. Total physician intraservice time was 32 minutes. Findings: The Z-line was irregular and was found 40 cm from the incisors. Biopsies were taken with a cold forceps for histology. LA Grade A (one or more mucosal breaks less than 5 mm, not extending between tops of 2 mucosal folds) esophagitis with no bleeding was found in the distal esophagus. Biopsies were taken with a cold forceps for histology. Localized minimal inflammation characterized by erythema was found in the prepyloric region of the stomach. Biopsies were taken with a cold forceps for Helicobacter pylori testing. The examined duodenum was normal. Biopsies for histology were taken with a cold forceps for evaluation of celiac disease. Impression: - Z-line irregular, 40 cm from the incisors. Biopsied. - LA Grade A reflux esophagitis with no bleeding. Biopsied. - Gastritis, characterized by erythema. Biopsied. - Normal examined duodenum. Biopsied. Recommendation: - Patient has a contact number available for emergencies. The signs and symptoms of potential delayed complications were discussed with the patient. Return to normal activities tomorrow. Written discharge instructions were provided to the patient. - Resume previous diet. - Continue present medications. - Await pathology results. - Repeat upper endoscopy PRN for surveillance. - Return to nurse practitioner at appointment to be scheduled. Procedure Code(s): --- Professional --- 01878, Esophagogastroduodenoscopy, flexible, transoral; with biopsy, single or multiple G0500, Moderate sedation services provided by the same physician or other qualified health care transitions manager performing a gastrointestinal endoscopic service that sedation supports, requiring the presence of an independent trained observer to assist in the monitoring of the patient's level of consciousness and physiological status; initial 15 minutes of intra-service time; patient age 5 years or older (additional time may be reported with 49884, as appropriate) 40514, Moderate sedation; each additional 15 minutes intraservice time Diagnosis Code(s): --- Professional --- K22.89, Other specified disease of esophagus K21.00, Gastro-esophageal reflux disease with esophagitis, without bleeding K29.70, Gastritis, unspecified, without bleeding R12, Heartburn R63.4, Abnormal weight loss CPT copyright 2020 [employer]. All rights reserved. The codes documented in this report are preliminary and upon ibm bpm architect review may be revised to meet current compliance requirements. Attending Participation: I personally performed the entire procedure. Scope In: 9:51:56 AM Scope Out: 9:58:21 AM MD Yoseph Wright MD 01/29/2025 10:25:43 AM This report has been signed electronically by Yoseph Aleman MD Number of Addenda: 0 Note Initiated On: 01/29/2025 9:37 AM Estimated Blood Loss: Estimated blood loss was minimal. COLONOSCOPY Observed: 01/29/2025 9:35 AM Status: F Source: [facility] Gastrointestinal Endoscopy Patient Name: Rosalind Koenig Procedure Date: 01/29/2025 9:35 AM Date of : 1950 Admit Type: Outpatient Age: 74 Gender: Male Note Status: Finalized Procedure: Colonoscopy Indications: High risk colon cancer surveillance: Personal history of adenomatous colonic polyps Providers: Yoseph Aleman MD Patient Profile: This is a 74 year old male. Refer to note in patient chart for documentation of history and physical. Last Colonoscopy: May 2022. Referring Physician: Lexi Burnett (Referring MD) Medicines: Fentanyl 100 micrograms IV, Midazolam 5 mg IV, Diphenhydramine 50 mg IV Complications: No immediate complications. Estimated blood loss: Minimal. Requesting Provider: Procedure: Pre-Anesthesia Assessment: - Prior to the procedure, a History and Physical was performed, and patient medications and allergies were reviewed. The patient's tolerance of previous anesthesia was also reviewed. The risks and benefits of the procedure and the sedation options and risks were discussed with the patient. All questions were answered, and informed consent was obtained. Prior Anticoagulants: The patient has taken no anticoagulant or antiplatelet agents. ASA Grade Assessment: III - A patient with severe systemic disease. After reviewing the risks and benefits, the patient was deemed in satisfactory condition to undergo the procedure. After I obtained informed consent, the scope was passed under direct vision. Throughout the procedure, the patient's blood pressure, pulse, and oxygen saturations were monitored continuously. The Colonoscope was introduced through the anus and advanced to the cecum, identified by appendiceal orifice and ileocecal valve. The colonoscopy was performed without difficulty. The patient tolerated the procedure well. The quality of the bowel preparation was poor. The ileocecal valve, appendiceal orifice, and rectum were photographed. Moderate Sedation: The administration of moderate sedation was initiated at 09:48. Moderate (conscious) sedation was personally administered by the endoscopist. The following parameters were monitored: oxygen saturation, heart rate, blood pressure, respiratory rate, EKG, adequacy of pulmonary ventilation, and response to care. Total physician intraservice time was 32 minutes. Findings: The perianal and digital rectal examinations were normal. A frond-like/villous partially obstructing medium-sized mass was found in the mid transverse colon. The mass was partially circumferential (involving one-third of the lumen circumference). The mass measured two cm in length. In addition, its diameter measured four mm. No bleeding was present. Biopsies were taken with a cold forceps for histology. Area was tattooed with an injection of 1 mL of Spot (carbon black). The colon (entire examined portion) appeared normal. Biopsies for histology were taken with a cold forceps from the entire colon for evaluation of microscopic colitis. Extensive amounts of semi-liquid semi-solid stool was found in the entire colon, precluding visualization. Lavage of the area was performed using a moderate amount of normal saline, resulting in incomplete clearance with continued poor visualization. Non-bleeding internal hemorrhoids were found during retroflexion. The hemorrhoids were moderate and medium-sized. The exam was otherwise without abnormality. Impression: - Preparation of the colon was poor. 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 Biopsied. Tattooed. - The entire examined colon is normal. Biopsied. - Stool in the entire examined colon. - Non-bleeding internal hemorrhoids. - The examination was otherwise normal. Recommendation: - Patient has a contact number available for emergencies. The signs and symptoms of potential delayed complications were discussed with the patient. Return to normal activities tomorrow. Written discharge instructions were provided to the patient. - Resume previous diet. - Continue present medications. - Await pathology results. - Repeat colonoscopy at appointment to be scheduled for retreatment. - Return to nurse practitioner at appointment to be scheduled. - Refer to a colo-rectal surgeon at appointment to be scheduled. Procedure Code(s): --- Professional --- 64403, Colonoscopy, flexible; with biopsy, single or multiple 41169, Colonoscopy, flexible; with directed submucosal injection(s), any substance G0500, Moderate sedation services provided by the same physician or other qualified health care transitions manager performing a gastrointestinal endoscopic service that sedation supports, requiring the presence of an independent trained observer to assist in the monitoring of the patient's level of consciousness and physiological status; initial 15 minutes of intra-service time; patient age 5 years or older (additional time may be reported with 68643, as appropriate) 39847, Moderate sedation; each additional 15 minutes intraservice time Diagnosis Code(s): --- Professional --- Z12.11, Encounter for screening for malignant neoplasm of colon Z86.0101, Personal history of adenomatous and serrated colon polyps K64.8, Other hemorrhoids D49.0, Neoplasm of unspecified behavior of digestive system K56.690, Other partial intestinal obstruction CPT copyright 2020 [employer]. All rights reserved. The codes documented in this report are preliminary and upon ibm bpm architect review may be revised to meet current compliance requirements. Attending Participation: I personally performed the entire procedure. Scope In: 10:02:09 AM Scope Out: 10:20:50 AM MD Yoseph Wright MD 01/29/2025 10:34:20 AM This report has been signed electronically by Yoseph Aleman MD Number of Addenda: 0 Note Initiated On: 01/29/2025 9:35 AM Estimated Blood Loss: Estimated blood loss was minimal. PROGRESS Observed: 01/07/2025 10:00 AM Status: COMPLETED Source: [facility] ID: [id number] Author: LEXI BURNETT APRN.SHEET TAILER Service: ? Author Type: Nurse Practitioner Type: Progress Notes Filed: 01/07/2025 10:43 Note Text: HISTORY AND PHYSICAL Rosalind Koenig : 1950 REFERRING PHYSICIAN: No referring provider defined for this encounter. CHIEF COMPLAINT: Patient presents with: Consult: colonoscopy HPI: Rosalind is a 74 year old male referred for endoscopy. Rosalind notes due for screening colonoscopy-hx of polyps (2022). Rosalind recently developed a diffuse rash all over his upper trunk, head, neck and arms-present since July. He was seen by derm and it was determined to be "internal". PCP completed celiac work up, CEA, CT abd/pelv, referral to allergy AND hematology. -lab work pending 01/07 -no ct scan scheduled yet- waiting to see if it is covered by insurance Rosalind denies abdominal pain. Rosalind denies diarrhea. Rosalind denies constipation. Rosalind denies a change in bowel habits. Rosalind denies melena. Rosalind denies bright red blood per rectum. Rosalind notes daughter with celiac dx Rosalind notes heartburn. -recent increase, worse if eats bread -typically controlled with pepcid prn but seems to be taking it daily now Rosalind notes a distant history of dysphagia. -has resolved since starting the pepcid Rosalind notes unintentional weight loss -down 16 lbs Rosalind notes decreased appetite due to lack of taste Rosalind denies N/V/epigastric pain Rosalind's medical history is significant for HTN,HLD and asthma. He denies CP, SOB, dizziness, palpitations, syncope, edema, recent hospitalizations Rosalind has undergone prior endoscopy. Last colonoscopy was 05/[address] Kruse at [facility]. Sedation: Midazolam 6 mg IV, Fentanyl 100 micrograms IV, Diphenhydramine 50 mg IV Impression: - One diminutive polyp in the ascending colon, removed with a cold biopsy forceps. Resected and retrieved. - One 8 mm polyp in the mid transverse colon, removed with a cold snare. Resected and retrieved. Treated with argon beam coagulation. - The examination was otherwise normal on direct and retroflexion views. FINAL DIAGNOSIS A. Ascending colon polyp, biopsy: - Fragments of tubular adenoma. B. Transverse colon polyp, biopsy: - Multiple fragments of tubulovillous adenoma. Current Outpatient Medications Medication Sig famotidine (PEPCID AC PO) Take 1 dose by mouth as needed (acid reflux). predniSONE EC 5 mg Delayed Release Tab Take 5 mg by mouth two times a day. diphenhydramine HCl (ALLERGY MEDICATION ORAL) Take by mouth as needed. doxazosin (CARDURA) 4 mg tablet Take 4 mg by mouth daily at bedtime. pravastatin (PRAVACHOL) 40 mg tablet Take 40 mg by mouth once daily. ALBUTEROL INHALATION Inhale as instructed as needed. peg 3350-Electrolytes (GOLYTELY) 236-22.74-6.74 -5.86 gram suspension Refer to printed prep instructions from your provider. fluticasone/vilanterol (BREO ELLIPTA INHALATION) Inhale as instructed once daily. esomeprazole magnesium (NEXIUM 24HR ORAL) Take by mouth as needed. No current facility-administered medications for this visit. ALLERGIES: Patient has no known allergies. PAST MEDICAL HISTORY Diagnosis Date Asthma Benign intracranial hypertension Hyperlipemia Hypertension PAST SURGICAL HISTORY Procedure Laterality Date COLONOSCOPY 06/06/2021 repeat in 6 months COLONOSCOPY SCREENING 12/19/2021 repeat in 6 months COLONOSCOPY SCRN NOT HIGH RISK 03/22/2020 TONSILLECTOMY HX FAMILY HISTORY Problem Relation Age of Onset No Known Problems Mother No Known Problems Father SOCIAL HISTORY[1] REVIEW OF SYMPTOMS: REVIEW OF SYSTEMS: General: The patient + fatigue, + weight loss, denies weight gain, denies feeling hot, and feelings of cold. Eyes: The patient denies glaucoma, denies eye injury/surgery, + glasses or contacts. Ear/Nose/Throat: The patient denies allergies, + hayfever, denies ear infections, and denies bloody noses. Cardiovascular: The patient denies chest pain, denies heart disease, + high blood pressure, + high cholesterol, and denies poor circulation. Respiratory: The patient denies tuberculosis, denies pneumonia, denies frequent cough, denies shortness of breath, and denies coughing up blood. Gastrointestinal: The patient denies difficulty swallowing, + acid reflux, denies ulcers, denies jaundice/hepatitis, denies gallbladder problems, denies vomiting, denies black or tarry stools, denies hemorrhoids, denies bleeding from rectum, denies diverticulitis, denies constipation, denies diarrhea, denies loss of stool control, and denies hernias. Kidney/Bladder: The patient denies kidney stones, denies urine infections, and denies bloody urine. Skin: The patient denies a history of skin cancer, denies bleeding/changing moles, and + a history of skin rash. Neurologic: The patient denies a history of epilepsy/convulsions, denies headaches, denies head/spinal injuries, and denies stroke/TIA. Psychiatric: The patient denies psychiatric medications, denies depression, and denies voices. Endocrine: The patient denies thyroid disorders, denies diabetes, and denies hormonal problems. Hematologic: The patient + a history of bruising, denies bleeding, and denies anemia. Infections: The patient denies a history of measles and mumps, denies rheumatic fever, and denies sexually transmitted diseases. Musculoskeletal: The patient denies back pain/injury, denies back problems, denies sciatica, denies knee/foot trouble, denies arthritis, or denies gout. PHYSICAL EXAMINATION: General: The patient is 74 year old, male well nourished, well hydrated in no acute distress. The patient is oriented to time, place, and person. VITALS: Blood pressure 162/62, pulse 65, resp. rate 14, weight 91.5 kg (201 lb 12.8 oz), SpO2 97%. Body mass index is 28.96 kg/m?. HEENT: Normal cephalic, ataumatic, pupils are equally round, sclera are anicteric, mucous membranes are moist, oropharynx is clear. Neck has no masses or asymmetry . Respiratory: Clear to auscultation. Cardiac: Regular rate and rhythm. Abdominal exam: Soft, nontender, with no palpable masses. No hepatosplenomegaly. No palpable hernias. Extremities: no clubbing or cyanosis Skin: flat, diffuse erythema all over neck/bilateral cheeks and bilateral lower arms. LABORATORY VALUES: As Noted RADIOLOGIC STUDIES: As Noted Assessment IMPRESSION: screen for colon cancer, history of colon polyps, heart burn, unintentional weight loss, family history of celiac disease PLAN: I have reviewed my findings with the surgeon. Will plan for upper and lower endoscopy. We discussed the risks and benefits of the planned endoscopy in terms understandable to the patient. I have informed the patient that complications can occur including failure to complete the endoscopy and perforation. Rosalind had the opportunity to ask questions concerning the planned endoscopy. Rosalind freely consents to surgery. I plan to use Golytely bowel preparation I have explained to the patient the difference between IV conscious sedation and MAC anesthesia - and I have offered either, according to the patient's wishes. I have explained that with IV conscious sedation there is no anesthesia provider available and therefore there is a limitation of the amount of IV medications that can be given and that the patient may wake up in the middle of the procedure and/or experience pain/discomfort during the procedure. Further discussion was done and the patient was given the opportunity to ask questions and all questions were answered. Rosalind chooses IV conscious sedation. Rosalind was counseled that if there are changes in his/her medical condition, to let the office know if surgery should proceed. If there are changes in patient's medical condition from time of this encounter to the day of the procedure that preclude anesthesia, patient may have procedure cancelled for patient's safety. Diagnoses: (R12) Heart burn (primary encounter diagnosis) (R63.4) Unintentional weight loss (Z12.11) Screen for colon cancer (Z86.0100) History of colonic polyps (Z83.79) Family history of celiac disease Portions of this documentation were copied and pasted from previous office visit notes in order to provide a cohesive continuity of the history. The note has been reviewed and edited and updated as necessary. Lexi Burnett APRN.SHEET TAILER [1] Social History Tobacco Use Smoking status: Never Smokeless tobacco: Never Vaping Use Vaping status: Never Used Substance Use Topics Alcohol use: Yes Alcohol/week: 2.0 - 3.0 standard drinks of alcohol Types: 2 - 3 Cans of beer per week Comment: after work Drug use: Never CNOV Observed: 01/07/2025 10:00 AM Status: COMPLETED Source: [facility] Office Visit (GENSWS) ROSALIND KOENIG ([id number]) 1950 M Date Time Provider Department 01/07/25 10:00 AM LEXI BURNETT During your visit today, we recorded the following information about you: Pulse Respiration Blood pressure Weight 65/minute 14/minute 162/62 91.5 kg Lexi Burnett APRN.CNP 01/07/2025 10:43 AM Signed HISTORY AND PHYSICAL Rosalind Koenig : 1950 REFERRING PHYSICIAN: No referring provider defined for this encounter. CHIEF COMPLAINT: Patient presents with: Consult: colonoscopy HPI: Rosalind is a 74 year old male referred for endoscopy. Rosalind notes due for screening colonoscopy-hx of polyps (2022). Rosalind recently developed a diffuse rash all over his upper trunk, head, neck and arms-present since July. He was seen by derm and it was determined to be "internal". PCP completed celiac work up, CEA, CT abd/pelv, referral to allergy AND hematology. -lab work pending 01/07 -no ct scan scheduled yet- waiting to see if it is covered by insurance Rosalind denies abdominal pain. Rosalind denies diarrhea. Rosalind denies constipation. Rosalind denies a change in bowel habits. Rosalind denies melena. Rosalind denies bright red blood per rectum. Rosalind notes daughter with celiac dx Rosalind notes heartburn. -recent increase, worse if eats bread -typically controlled with pepcid prn but seems to be taking it daily now Rosalind notes a distant history of dysphagia. -has resolved since starting the pepcid Rosalind notes unintentional weight loss -down 16 lbs Rosalind notes decreased appetite due to lack of taste Rosalind denies N/V/epigastric pain Rosalind's medical history is significant for HTN,HLD and asthma. He denies CP, SOB, dizziness, palpitations, syncope, edema, recent hospitalizations Rosalind has undergone prior endoscopy. Last colonoscopy was 05/[address] Kruse at [facility]. Sedation: Midazolam 6 mg IV, Fentanyl 100 micrograms IV, Diphenhydramine 50 mg IV Impression: - One diminutive polyp in the ascending colon, removed with a cold biopsy forceps. Resected and retrieved. - One 8 mm polyp in the mid transverse colon, removed with a cold snare. Resected and retrieved. Treated with argon beam coagulation. - The examination was otherwise normal on direct and retroflexion views. FINAL DIAGNOSIS A. Ascending colon polyp, biopsy: - Fragments of tubular adenoma. B. Transverse colon polyp, biopsy: - Multiple fragments of tubulovillous adenoma. Current Outpatient Medications Medication Sig famotidine (PEPCID AC PO) Take 1 dose by mouth as needed (acid reflux). predniSONE EC 5 mg Delayed Release Tab Take 5 mg by mouth two times a day. diphenhydramine HCl (ALLERGY MEDICATION ORAL) Take by mouth as needed. doxazosin (CARDURA) 4 mg tablet Take 4 mg by mouth daily at bedtime. pravastatin (PRAVACHOL) 40 mg tablet Take 40 mg by mouth once daily. ALBUTEROL INHALATION Inhale as instructed as needed. peg 3350-Electrolytes (GOLYTELY) 236-22.74-6.74 -5.86 gram suspension Refer to printed prep instructions from your provider. fluticasone/vilanterol (BREO ELLIPTA INHALATION) Inhale as instructed once daily. esomeprazole magnesium (NEXIUM 24HR ORAL) Take by mouth as needed. No current facility-administered medications for this visit. ALLERGIES: Patient has no known allergies. PAST MEDICAL HISTORY Diagnosis Date Asthma Benign intracranial hypertension Hyperlipemia Hypertension PAST SURGICAL HISTORY Procedure Laterality Date COLONOSCOPY 06/06/2021 repeat in 6 months COLONOSCOPY SCREENING 12/19/2021 repeat in 6 months COLONOSCOPY SCRN NOT HIGH RISK 03/22/2020 TONSILLECTOMY HX FAMILY HISTORY Problem Relation Age of Onset No Known Problems Mother No Known Problems Father SOCIAL HISTORY[1] REVIEW OF SYMPTOMS: REVIEW OF SYSTEMS: General: The patient + fatigue, + weight loss, denies weight gain, denies feeling hot, and feelings of cold. Eyes: The patient denies glaucoma, denies eye injury/surgery, + glasses or contacts. Ear/Nose/Throat: The patient denies allergies, + hayfever, denies ear infections, and denies bloody noses. Cardiovascular: The patient denies chest pain, denies heart disease, + high blood pressure, + high cholesterol, and denies poor circulation. Respiratory: The patient denies tuberculosis, denies pneumonia, denies frequent cough, denies shortness of breath, and denies coughing up blood. Gastrointestinal: The patient denies difficulty swallowing, + acid reflux, denies ulcers, denies jaundice/hepatitis, denies gallbladder problems, denies vomiting, denies black or tarry stools, denies hemorrhoids, denies bleeding from rectum, denies diverticulitis, denies constipation, denies diarrhea, denies loss of stool control, and denies hernias. Kidney/Bladder: The patient denies kidney stones, denies urine infections, and denies bloody urine. Skin: The patient denies a history of skin cancer, denies bleeding/changing moles, and + a history of skin rash. Neurologic: The patient denies a history of epilepsy/convulsions, denies headaches, denies head/spinal injuries, and denies stroke/TIA. Psychiatric: The patient denies psychiatric medications, denies depression, and denies voices. Endocrine: The patient denies thyroid disorders, denies diabetes, and denies hormonal problems. Hematologic: The patient + a history of bruising, denies bleeding, and denies anemia. Infections: The patient denies a history of measles and mumps, denies rheumatic fever, and denies sexually transmitted diseases. Musculoskeletal: The patient denies back pain/injury, denies back problems, denies sciatica, denies knee/foot trouble, denies arthritis, or denies gout. PHYSICAL EXAMINATION: General: The patient is 74 year old, male well nourished, well hydrated in no acute distress. The patient is oriented to time, place, and person. VITALS: Blood pressure 162/62, pulse 65, resp. rate 14, weight 91.5 kg (201 lb 12.8 oz), SpO2 97%. Body mass index is 28.96 kg/m?. HEENT: Normal cephalic, ataumatic, pupils are equally round, sclera are anicteric, mucous membranes are moist, oropharynx is clear. Neck has no masses or asymmetry . Respiratory: Clear to auscultation. Cardiac: Regular rate and rhythm. Abdominal exam: Soft, nontender, with no palpable masses. No hepatosplenomegaly. No palpable hernias. Extremities: no clubbing or cyanosis Skin: flat, diffuse erythema all over neck/bilateral cheeks and bilateral lower arms. LABORATORY VALUES: As Noted RADIOLOGIC STUDIES: As Noted Assessment IMPRESSION: screen for colon cancer, history of colon polyps, heart burn, unintentional weight loss, family history of celiac disease PLAN: I have reviewed my findings with the surgeon. Will plan for upper and lower endoscopy. We discussed the risks and benefits of the planned endoscopy in terms understandable to the patient. I have informed the patient that complications can occur including failure to complete the endoscopy and perforation. Rosalind had the opportunity to ask questions concerning the planned endoscopy. Rosalind freely consents to surgery. I plan to use Golytely bowel preparation I have explained to the patient the difference between IV conscious sedation and MAC anesthesia - and I have offered either, according to the patient's wishes. I have explained that with IV conscious sedation there is no anesthesia provider available and therefore there is a limitation of the amount of IV medications that can be given and that the patient may wake up in the middle of the procedure and/or experience pain/discomfort during the procedure. Further discussion was done and the patient was given the opportunity to ask questions and all questions were answered. Rosalind chooses IV conscious sedation. Rosalind was counseled that if there are changes in his/her medical condition, to let the office know if surgery should proceed. If there are changes in patient's medical condition from time of this encounter to the day of the procedure that preclude anesthesia, patient may have procedure cancelled for patient's safety. Diagnoses: (R12) Heart burn (primary encounter diagnosis) (R63.4) Unintentional weight loss (Z12.11) Screen for colon cancer (Z86.0100) History of colonic polyps (Z83.79) Family history of celiac disease Portions of this documentation were copied and pasted from previous office visit notes in order to provide a cohesive continuity of the history. The note has been reviewed and edited and updated as necessary. Lexi Burnett APRN.SHEET TAILER [1] Social History Tobacco Use Smoking status: Never Smokeless tobacco: Never Vaping Use Vaping status: Never Used Substance Use Topics Alcohol use: Yes Alcohol/week: 2.0 - 3.0 standard drinks of alcohol Types: 2 - 3 Cans of beer per week Comment: after work Drug use: Never Allergies As of Date: 01/07/2025 (No Known Allergies) Date Reviewed: 01/07/2025 Reviewed by: Lexi Burnett APRN.SHEET TAILER - Fully Assessed Reason for Visit: Consult [173] Cmt: colonoscopy Primary Visit Diagnosis:Heart burn [R12] Other Visit Diagnoses:Unintentional weight loss [R63.4] Screen for colon cancer [Z12.11] History of colonic polyps [Z86.0100] Family history of celiac disease [Z83.79] Order(s):COLONOSCOPY SCREENING [GI51] Order #: [id number] FUTURE peg 3350-Electrolytes (GOLYTELY) 236-22.74-6.74 -5.86 gram suspensionRefer to printed prep instructions from your provider.Disp: 4000 mLRfl: 0 EGD DIAGNOSTIC [GI9] Order #: [id number] FUTURE Prescriptions as of 01/07/2025 - famotidine (PEPCID AC PO) Take 1 dose by mouth as needed (acid reflux). - predniSONE EC 5 mg Delayed Release Tab Take 5 mg by mouth two times a day. - peg 3350-Electrolytes (GOLYTELY) 236-22.74-6.74 -5.86 gram suspension Refer to printed prep instructions from your provider. - esomeprazole magnesium (NEXIUM 24HR ORAL) Take by mouth as needed. - diphenhydramine HCl (ALLERGY MEDICATION ORAL) Take by mouth as needed. - doxazosin (CARDURA) 4 mg tablet Take 4 mg by mouth daily at bedtime. - pravastatin (PRAVACHOL) 40 mg tablet Take 40 mg by mouth once daily. - ALBUTEROL INHALATION Inhale as instructed as needed. Problem List As Of Date: 01/07/2025 (None) Prescriptions ordered this encounter Disp Refills Start End PEG 3350-ELECTROLYTES 236 GRAM-22.74* 4000* 0 01/07/2025 Sig: Refer to printed prep instructions from your provider. Medications Discontinued During This Encounter Prescriptions - fluticasone/vilanterol (BREO ELLIPTA INHALATION) (Discontinued) Inhale as instructed once daily. Encounter Status:Closed by LEXI BURNETT on 01/07/25 ALLERGIES DATE TYPE / CODE NAME / CODE REACTION SEVERITY SOURCE Drug Class/[id number](SNO MED CT) NO KNOWN ALLERGIES [place] ENCOUNTERS ADMIT/DISCHARGE ACCOUNT NUMBER ADMITTING ENCOUNTER CLASS LOC ATION SOURCE 01/29/2025 [id number] Ambulatory [facility] Hospital[facility] ing:ASWS [facility] 01/07/2025/ 5 [id number] [facility] 12/15/2024/ 5 [id number] Amb[address] [place] [address] PAYERS ENCOUNTER GUARANTOR PAYER SUBSCRIBER SOURCE 01/29/2025 Primary Insuranc e:[employer]AGE HMOPolicy Number: [id number] Date:[id number] Name:Loyda KWONGLETHA: [id number] [address] 01/07/2025 Primary Insuranc e:[employer] HMOPolicy Number: [id number] Date:[id number] Name:Loyda KWONGLETHA: [id number] [place], [place] [id number] [place] [address]
--- NOTE | 2025-02-01 14:50 | CT_ITS ---
PROCEDURE: CT CHEST, ABD, PEL W/CONTRAST 02/01/2025 REASON FOR EXAM: RASH TECHNIQUE: Chest, abdomen and pelvis CT with intravenous contrast. Coronal and Sagittal reconstruction series were provided. One or more dose reduction techniques were used (e.g., Automated exposure control, adjustment of the mA and/or kV according to patient size, use of iterative reconstruction technique. PATIENT PREPARATION: Per protocol ORAL CONTRAST TYPE: None. AMOUNT: mL CONTRAST: Isovue 370 VOLUME: 75mL RADIATION DOSE SUMMARY: CTDlvol: 49.10 mGy DLP: 1772.91 mGycm COMPARISON: None FINDINGS: CT CHEST: Lower neck:The thyroid gland is normal. There is no supraclavicular lymphadenopathy. Mediastinum:There are no abnormal masses or lymphadenopathy. Heart and Vasculature:The heart size is normal. There is no pericardial effusion. There is calcific vascular disease of the coronary arteries and thoracic aorta. Esophagus:Normal. Chest wall:The soft tissues of the chest wall appear unremarkable. There are multiple reactive axillary lymph nodes bilaterally. There is mild multilevel degenerative disc disease of the thoracic spine. There is a large Schmorl's node in the superior endplate of L1 with associated anterior wedging of the superior endplate. Lungs, airways and pleura: The lungs are clear. There is no significant interstitial or alveolar lung disease. There are no pulmonary nodules or masses. There are no pleural effusions. CT ABDOMEN/PELVIS: Liver: Normal size. No mass. Gallbladder: Partially evacuated. Spleen: Normal size. Pancreas: Normal size without evidence of mass surrounding inflammation or ductal dilation. Adrenals: Normal. Kidneys: Normal renal sizes. No hydronephrosis. Bladder: Normal unenhanced appearance. Reproductive Organs: The prostate gland measures 5.4 cm in transverse dimension. The seminal vesicles are unremarkable. There is no free fluid in the pelvis. Bowel: Colonic diverticulosis without diverticulitis. Appendix: Normal. Lymph nodes: There is no significant mesenteric, retroperitoneal or pelvic lymphadenopathy. Vasculature: There is calcific vascular disease of the abdominal aorta. The origin of both common iliac arteries is heavily calcified. Peritoneum / Retroperitoneum: There are no abnormal intra or retroperitoneal masses or fluid collections. There are bilateral inguinal hernias, containing normal fat, measuring 2.8 cm in diameter on the right and 3.0 cm in diameter on the left. 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 There is anterior wedging of the superior endplate of L1. There is a large Schmorl's node in the superior endplate of L1. There is mild levoscoliosis of the lumbar spine. CT/CT Chest, Abd, Pel w/Contrast IMPRESSION: 1. Reactive axillary lymph nodes bilaterally of indeterminate clinical signifi cance. 2. There is no acute cardiopulmonary pathology. 3. Prostatomegaly. 4. No evidence of acute abdominal or pelvic pathology. Reading Location: [place] [address]
== END | disposition home or self-care (01) ==
PROVIDERS: PCP Family Medicine; Referring Provider Family Medicine; Visit Provider Family Medicine
DX: R21 Rash and other nonspecific skin eruption (principal)
CPT/HCPCS: 71260; 74177; Q9967

== ENCOUNTER → 2025-04-06 | Outpatient (CLI) | payer MEDICARE, SELFPAY ==
--- OUTSIDE RECORDS SUMMARY | 2025-04-06 10:43 | XMS RPT_ITS | CCD ---
Author Organization [facility] Care Team Providers Care Doctor Of Podiatric Medicine Name Role Phone Unavailable Primary Care Provider Unavailabl e Hector Jc MD Primary Care Provider Hector Jc MD Primary Care Provider Hector Jc MD Primary Care Provider Hector Jc MD Primary Care Provider Hector Jc MD Primary Care Provider Dr. Hector Jc MD Primary Care Provider Dr. Hector Jc MD Attending Provider Dr. Hector Jc MD Referring Provider [phone] Dr. Hector Jc MD Primary Care Provider Dr. Pedro Rivera MD Emergency Provider Dr. Pedro Rivera MD Attending Provider Yohannes Tanner Attending Provider Yohannes Tanner Referring Provider Dr. Hector Jc MD Primary Care Physicia n Dr. Pedro Rivera MD Attending Physician Dr. Pedro Rivera MD Emergency Department Physici an Yohannes Tanner Attending Physician Dr. Hector Jc MD Attending Physician Hector Jc Attending Unavailable Hector Jc Referring Unavailable Hector Jc Primary Care Unavailable Hector Jc Primary Care Unavailable Pedro Rivera Attending Unavailable Hector Jc Attending Unavailable Hector Jc Primary Care Unavailable Hector Jc Primary Care Unavailable Hector Jc Attending Unavailable Babita Christianacarebrandy Primary Care Unavailable Yohannes Tanner Attending Unavailable Yohannes Tanner Referring Unavailable Hector Jc Primary Care Unavailable Hector Jc Attending Unavailable Hector Jc Referring Unavailable Hector Jc Primary Care Unavailable Hector Jc Attending Unavailable Hector Jc Referring Unavailable LEXI BURNETT Attending Unavailable HECTOR JC Primary Care Unavailabl e ALEXYSREJIEL P Attending Unavailable HORTENCIA LEXI Referring Unavailable JOÃO JCER B Primary Care Unavailabl e Socrates SARMIENTO Attending Unavailable ALEXYS, YOSEPH P Referring Unavailable JOÃO JCER B Primary Care Unavailabl e ALEXYS YOSEPH P Referring Unavailable SILVIO BURNETTBERLEY Attending Unavailable HECTOR JC Primary Care Unavailabl e Medications Current Medications Medication Drug Class(es) Dates Sig (Normalized) Sig (Original) Budesonide-Formotero l (8 sources) Corticosteroid, beta2-Adrenergic Agonist Start: 07-05-2017 Start: 07-05-2017 Budesonide-For moterol (Symbicort 80-4.5 Mcg Inhaler) 1 INHALER inhaler Active 2 NMA INHALATION NEEDED as needed for Sob &/Or Wheezing July 05, 2017 12:00am Start: 07-05-2017 Budesonide-For moterol (Symbicort 80-4.5 Mcg Inhaler) 1 INHALER inhaler Active 2 PUFF INHALATION NEEDED July 05, 2017 12:00am Start: 07-05-2017 Budesonide-For moterol (Symbicort 80-4.5 Mcg Inhaler) 1 INHALER inhaler Active 2 PUFF INHALATION NEEDED July 04, 2017 11:00pm fluconazole 200 mg oral tablet (3 sources) Azole Antifungal Start: 11-27-2024 take 1 tablet by mouth once daily lansoprazole 15 mg delayed release oral capsule (8 sources) Proton Pump Inhibitor Start: 07-05-2017 Completed/Discontinued Medications Medication Drug Class(es) Dates Sig (Normalized) Sig (Original) Albuterol (5 sources) beta2-Adrenergic Agonist ALBUTEROL INHALATION Inhale as instructed as needed. 0 Active Comment on above: Inhale as instructed as needed. diphenhydrAMINE (5 sources) Histamine-1 Receptor Antagonist diphenhydramine HCl (ALLERGY MEDICATION ORAL) Take by mouth as needed. 0 Active Comment on above: Take by mouth as nee ded. doxazosin 4 mg oral tablet (13 sources) alpha-Adrenergic Jaime Start: 02-01-2020 take 1 tablet by mouth once daily at bedtime doxazosin (CARDURA) 4 mg tablet Take 4 mg by mouth daily at bedtime. 0 02/01/2020 Active Start: 07-05-2017 take 1 tablet by mouth at bedt evert Comment on above: Take 4 mg by mouth d aily at bedtime. Esomeprazole (5 sources) Proton Pump Inhibitor esomeprazo le magnesium (NEXIUM 24HR ORAL) Take by mouth as needed. 0 Active Comment on above: Take by mouth as nee ded. fluticasone / vilanterol (5 sources) Corticosteroid, beta2-Adrenergic Agonist fluticasone/vilanter ol (BREO ELLIPTA INHALATION) Inhale as instructed once daily. 0 Active Comment on above: Inhale as instructed once daily. polyethylene glycol 3350 619836 mg / potassium chloride 2970 mg / sodium bicarbonate 6740 mg / sodium chloride 5860 mg / sodium sulfate 69414 mg powder for oral solution (2 sources) Osmotic Laxative Start: 12-26-2021 End: 12-26-2021 peg 3350-Electrolytes (GOLYTELY) 236-22.74-6.74 -5.86 gram suspension Take 4,000 mL by mouth one time only for 1 dose. 1 Each 0 12/26/2021 12/26/2021 Start: 12-13-2021 End: 12-13-2021 peg 3350-Electrolytes (GOLYT MARCO A) 236-22.74-6.74 -5.86 gram suspension Take 4,000 mL by mouth one time only for 1 dose. 1 Each 0 12/13/2021 12/13/2021 Comment on above: Take 4,000 mL by joey th one time only for 1 dose. pravastatin sodium 40 mg oral tablet (13 sources) HMG-CoA Reductase Inhibitor Start: 01-30-2020 take 1 tablet by mouth once daily pravastatin (PRAVACHOL) 40 mg tablet Take 40 mg by mouth once daily. 0 01/30/2020 Active Start: 01-04-2015 take 4 tablets by mo uth once daily Start: 01-04-2015 take 40 mg by mouth once daily Pravastatin Active 40 MG PO DAILY January 04, 2015 12:00am Comment on above: Take 40 mg by mouth once daily. Problems Problem Classification Problem Date Documented Da te Episodic/Chronic Allergic reactions (1 source) Other specified dermatitis; Translations: [Other specified dermatitis] Onset: 12-11-2024 Episodic Diabetes mellitus without complication (1 source) Glycosuria; Translations: [Glycosuria] Onset: 01-08-2025 Episodic Esophageal disorders (1 source) Ulcer of esophagus without bleeding; Translations: [Ulcer of esophagus without bleeding] Onset: 02-08-2025 Chronic Esophageal disorders (1 source) Esophageal disorders; Translations: [Gastroesophageal reflux disease with esophagitis without hemorrhage] Onset: 02-08-2025 Essential hypertension (1 source) Essential (primary) hypertension; Translations: [Essential (primary) hypertension] Onset: 05-11-2024 Chronic Gastritis and duodenitis (1 source) Gastritis, unspecified, without bleeding; Translations: [Gastritis without bleeding, unspecified chronicity, unspecified gastritis type] Onset: 02-08-2025 Episodic Other and unspecified benign neoplasm (3 sources) Tubular adenoma ; Translations: [Benign neoplasm, unspecified site] Episodic Other and unspecified benign neoplasm (1 source) History of polyp of colon; Translations: [Personal history of colonic polyps] Episodic Other and unspecified benign neoplasm (8 sources) Adenoma of large intestine; Translations: [Benign neoplasm of colon, unspecified] 07-16-2017 Episodic Other and unspecified benign neoplasm (1 source) Polyp of sigmoid colon; Translations: [Polyp of colon] 06-05-2022 Episodic Other and unspecified benign neoplasm (1 source) Benign neoplasm of colon, unspecified; Translations: [Tubulovillous adenoma of colon] Onset: 02-08-2025 Episodic Other gastrointestinal disorders (1 source) Heartburn; Translations: [Heart burn] Onset: 01-29-2025 Episodic Other gastrointestinal disorders (1 source) Other specified diseases of intestine; Translations: [Mass of colon] Onset: 01-29-2025 Episodic Other nervous system disorders (3 sources) Paresthesia; Translations: [Paresthesia of skin] 11-27-2024 Episodic Other nervous system disorders (1 source) Paresthesia of skin; Translations: [Paresthesia of skin] Onset: 02-08-2025 Episodic Other nutritional; endocrine; and metabolic disorders (1 source) Abnormal weight loss; Translations: [Unintentional weight loss] Onset: 01-29-2025 Episodic Other screening for suspected conditions (not mental disorders or infectious disease) (4 sources) Patient encounter status; Translations: [Encounter for screening for malignant neoplasm of colon] Onset: 07-13-2024 06-05-2022 Episodic Other skin disorders (3 sources) Eruption; Translations: [Rash and other nonspecific skin eruption] 11-27-2024 Episodic Other skin disorders (1 source) Rash and other nonspecific skin eruption; Translations: [Rash and other nonspecific skin eruption] Onset: 02-10-2025 Episodic Residual codes; unclassified (8 sources) History of colonoscopy; Translations: [Other specified postprocedural states] 07-16-2017 Episodic Comment on above: 07/09/17 Residual codes; unclassified (1 source) Family history of other diseases of the digestive system; Translations: [Family history of celiac disease] Onset: 01-29-2025 Episodic Unclassified (1 source) History of colonic polyps; Translations: [History of colonic polyps] Onset: 01-29-2025 Results Test Name Value Interpretation Reference Range Facility [facility] JOE GARCIA ([id number]) 1950 M Date Time Provider Department 02/18/25 Socrates SARMIENTO During your visit today, we recorded the following information about you: Mecca Rivera 02/18/2025 11:47 AM Signed 02/01/25 CT imagining report indexed in to patient's chart. Images pushed over at 11:20 am from [facility] Allergies As of Date: 02/18/2025 (No Known Allergies) Date Reviewed: 02/08/2025 Reviewed by: Lexi Burnett APRN.CLOUD SYSTEMS ARCHITECT - Fully Assessed Reason for Visit: Patient Update [1234] Prescriptions as of 02/18/2025 - NEXIUM 40 mg capsule Take 1 capsule by mouth once daily. - famotidine (PEPCID AC PO) Take 1 dose by mouth as needed (acid reflux). - diphenhydramine HCl (ALLERGY MEDICATION ORAL) Take by mouth as needed. - doxazosin (CARDURA) 4 mg tablet Take 4 mg by mouth daily at bedtime. - pravastatin (PRAVACHOL) 40 mg tablet Take 40 mg by mouth once daily. - ALBUTEROL INHALATION Inhale as instructed as needed. Problem List As Of Date 02/18/2025 Noted Resolved Family history of celiac disease [Z83.79] 01/29/2025 Heart burn [R12] 01/29/2025 History of colonic polyps [Z86.0100] 01/29/2025 Screen for colon cancer [Z12.11] 01/29/2025 Unintentional weight loss [R63.4] 01/29/2025 Encounter Status:[facility] ([facility] -- JOE GARCIA ([id number]) 1950 M Date Time Provider Department 02/10/25 LEXI BURNETT GENJEROMES During your visit today, we recorded the following information about you: Lorenzo Serra MA 02/10/2025 3:05 PM Signed Fax received from [employer] stating that the Nexium is not on formulary. Preferred products: Omeprazole, pantoprazole, or lansoprazole. Please review and advise. NELSON Kinsey Laurie, MA 02/10/2025 4:41 PM Signed Lexi Burnett APRN.CLOUD SYSTEMS ARCHITECT Can you please call Joe AND let him know. Ask him if he would like to purchase it OTC or if he would like me to send in pantoprazole? It is the same type of medication AND will work the same way in the body. As far as I know- they do not come with blue dye. Thanks, Lexi Burnett APRN.CLOUD SYSTEMS ARCHITECT Pt notified and will take OTC and let us know if that is not working. Lorenzo Serra MA Allergies As of Date: 02/10/2025 (No Known Allergies) Date Reviewed: 02/08/2025 Reviewed by: Lexi Burnett APRN.LUIS - Fully Assessed Reason for Visit: Medication Problem [65] Prescriptions as of 02/10/2025 - NEXIUM 40 mg capsule Take 1 capsule by mouth once daily. - famotidine (PEPCID AC PO) Take 1 dose by mouth as needed (acid reflux). - diphenhydramine HCl (ALLERGY MEDICATION ORAL) Take by mouth as needed. - doxazosin (CARDURA) 4 mg tablet Take 4 mg by mouth daily at bedtime. - pravastatin (PRAVACHOL) 40 mg tablet Take 40 mg by mouth once daily. - ALBUTEROL INHALATION Inhale as instructed as needed. Problem List As Of Date 02/10/2025 Noted Resolved Family history of celiac disease [Z83.79] 01/29/2025 Heart burn [R12] 01/29/2025 History of colonic polyps [Z86.0100] 01/29/2025 Screen for colon cancer [Z12.11] 01/29/2025 Unintentional weight loss [R63.4] 01/29/2025 Encounter Status:Closed by LORENZO SERRA on 02/10/25 [facility] 02-08-2025 CNOV Office Visit (GENSWS ) -- JOE GARCIA ([id number]) 1950 Date Time Provider Department 02/08/25 9:30 AM LEXI BURNETT During your visit today, we recorded the following information about you: Lexi Burnett APRN.CLOUD SYSTEMS ARCHITECT 02/08/2025 9:51 AM Signed FOLLOW UP VISIT - ENDOSCOPY Joe Garcia 1950 [id number] REFERRING PHYSICIAN: Yoseph Aleman III [address] [facility] [id number] Joe Garcia is a patient I am following for screening colonoscopy AND heartburn/unintentional weight loss/decreased appetite. Dr. Aleman performed upper AND lower endoscopy on 01/29/25. The patient was found to have EGD Impression: - Z-line irregular, 40 cm from the incisors. Biopsied. - LA Grade A reflux esophagitis with no bleeding. Biopsied. - Gastritis, characterized by erythema. Biopsied. - Normal examined duodenum. Biopsied. COLONOSCOPY Impression: - Preparation of the colon was poor. 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 Biopsied. Tattooed. - The entire examined colon is normal. Biopsied. - Stool in the entire examined colon. - Non-bleeding internal hemorrhoids. - The examination was otherwise normal. Pathology demonstrated: FINAL DIAGNOSIS A. Duodenum, biopsy: - No significant pathologic change. B. Gastric antrum, biopsy: - No significant pathologic change. - No morphologic evidence of Helicobacter pylori. C. Distal esophagus, biopsy: - Squamous mucosa with focal ulcer and regenerative epithelial changes. - No evidence of intestinal metaplasia or dysplasia. - No evidence of eosinophilia. D. Mid esophagus, biopsy: - Fragments of unremarkable squamous mucosa. - No evidence of eosinophilia. E. Colon, random biopsy: - No significant pathologic change. - No evidence of lymphocytic or collagenous colitis. F. Transverse colon mass, biopsy: - Fragments of tubulovillous adenoma. - No evidence of invasive carcinoma. The patient notes some heart burn especially at night -notes drinking coffee first thing in the AM -drinks a couple beers with dinner -been taking pepcid with good relief -notes dermatology told him to stop taking [employer] brand nexium d/t the blue dying thinking it caused his diffuse rash that he has had for close to 1 year. VITALS: There were no vitals taken for this visit. General: patient is alert, cooperative, pleasant and in no acute distress On examination, the abdomen is benign. Assessment ASSESSMENT/PLAN: 1. Gastroesophageal reflux disease with esophagitis without hemorrhage - ICD9: 530.81, 530.10, ICD10: K21.00 (primary diagnosis) - Discussed lifestyle modifications including losing weight, limiting caffeine, no meals three hours before sleep, and head of bed elevation - Begin treatment with Nexium 40 mg every day until next EGD 2. Ulcer of esophagus without bleeding - ICD9: 530.20, ICD10: K22.10 - Same as #1 3. Gastritis without bleeding, unspecified chronicity, unspecified gastritis type - ICD9: 535.50, ICD10: K29.70 - Nexium 40mg daily - Avoid NSAIDs AND alcohol - Limit caffeine AND acidic foods 4. 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 Sarmiento The operative findings and pathology report were reviewed with the patient, and the patient has had the opportunity to ask questions and have questions answered. If the patient notes any problems or changes in bowel function, the patient should contact me immediately. Otherwise I recommend follow up EGD in 3-6 AND colonoscopy based off Dr. Sarmiento's recommendations. If Dr. Sarmiento's repeat colonoscopy is due in 6 mos- okay to complete EGD at the same time. HM updated. Discussed treatment plan and patient voices understanding. Patient's questions answered appropriately. Medications and potential side effects were discussed and patient voices understanding. Return to the office as scheduled or as needed for worsening/no improvement. _ Lexi Burnett APRN.LUIS Referring Provider: YOSEPH ALEMAN [[id number]] Allergies As of Date: 02/08/2025 (No Known Allergies) Date Reviewed: 02/08/2025 Reviewed by: Lexi Burnett APRN.LUIS - Fully Assessed Reason for Visit: Follow Up [171] Cmt: Colon AND egd Primary Visit Diagnosis:Gastroesophageal reflux disease with esophagitis without hemorrhage [K21.00] Other Visit Diagnoses:Ulcer of esophagus without bleeding [K22.10] Gastritis without bleeding, unspecified chronicity, unspecified gastritis type [K29.70] Tubulovillous adenoma of colon [D12.6] Order(s):NEXIUM 40 mg capsuleTake 1 capsule by mouth once daily.Disp: 90 capsuleRfl: 1 Prescriptions as of 02/08/2025 - NEXIUM 40 mg capsule Take 1 capsule by mouth once daily. - famotidine (PEPCID AC PO) Take 1 dose by mouth as needed (acid reflux). - diphenhydramine HCl (ALLERGY M (more content not included)... [facility]OVon 02-03-2025 CNOV Office Visit ([facility] ) -- LIBERTYJOE ([id number]) 1950 M Date Time Provider Department 02/03/25 9:00 AM Socrates SARMIENTO [facility] During your visit today, we recorded the following information about you: Temperature Pulse Blood pressure Weight 97.6 degrees 98/minute 188/87 90.1 kg Height 1.778 m Socrates Sarmiento MD 02/03/2025 8:59 AM Signed COLORECTAL SURGERY New Patient Visit February 01, 2025 Chief Complaint: ESD referral. Images in chart Referred by: Dr. Aleman History of Present Illness: Joe Garcia is a 74 year old year old male with a PMHX or a history of polyps, HTN, HLD and asthma. He most recently underwent a colonoscopy screening with his last screening in 05/2022 due to history of polyps. His screedning from 01/29/25 showed a likely malignant obstructing tumor in the mid transverse colon. Pathology still pending. Dr. Aleman's note 01/29/2025 HISTORY AND PHYSICAL Joe Garcia : 1950 REFERRING PHYSICIAN: No referring provider defined for this encounter. CHIEF COMPLAINT: Patient presents with: Consult: colonoscopy HPI: Joe is a 74 year old male referred for endoscopy. Joe notes due for screening colonoscopy-hx of polyps (2022). Joe recently developed a diffuse rash all over his upper trunk, head, neck and arms-present since July. He was seen by derm and it was determined to be internal. PCP completed celiac work up, CEA, CT abd/pelv, referral to allergy AND hematology. -lab work pending 01/07 -no ct scan scheduled yet- waiting to see if it is covered by insurance Joe denies abdominal pain. Joe denies diarrhea. Joe denies constipation. Joe denies a change in bowel habits. Joe denies melena. Joe denies bright red blood per rectum. Joe notes daughter with celiac dx Joe notes heartburn. -recent increase, worse if eats bread -typically controlled with pepcid prn but seems to be taking it daily now Joe notes a distant history of dysphagia. -has resolved since starting the pepcid Joe notes unintentional weight loss -down 16 lbs Joe notes decreased appetite due to lack of taste Joe denies N/V/epigastric pain Joe's medical history is significant for HTN,HLD and asthma. He denies CP, SOB, dizziness, palpitations, syncope, edema, recent hospitalizations Joe has undergone prior endoscopy. Last colonoscopy was 05/[address] Kruse at [facility]. Sedation: Midazolam 6 mg IV, Fentanyl [...] biopsy: - Multiple fragments of tubulovillous adenoma. Colonoscopy 01/29/25 Impression: - Preparation of the colon was poor. 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 Biopsied. Tattooed. - The entire examined colon is normal. Biopsied. - Stool in the entire examined colon. - Non-bleeding internal hemorrhoids. - The examination was otherwise normal. EGD diagnostic 01/29/25 Impression: - Z-line irregular, 40 cm from the incisors. Biopsied. - LA Grade A reflux esophagitis with no bleeding. Biopsied. - Gastritis, characterized by erythema. Biopsied. - Normal examined duodenum. Biopsied. PAST MEDICAL HISTORY Diagnosis Date Asthma (HCC) Benign intracranial hypertension Hyperlipemia Hypertension PAST SURGICAL HISTORY Procedure Laterality Date COLONOSCOPY 06/06/2021 repeat in 6 months COLONOSCOPY SCREENING 12/19/2021 repeat in 6 months COLONOSCOPY SCRN NOT HIGH RISK 03/22/2020 TONSILLECTOMY HX Current Outpatient Medications Medication Sig Dispense Refill famotidine (PEPCID AC PO) Take 1 dose by mouth as needed (acid reflux). esomeprazole magnesium (NEXIUM 24HR ORAL) Take by mouth as needed. diphenhydramine HCl (ALLERGY MEDICATION ORAL) Take by mouth as needed. doxazosin (CARDURA) 4 mg tablet Take 4 mg by mouth daily at bedtime. pravastatin (PRAVACHOL) 40 mg tablet Take 40 mg by mouth once daily. ALBUTEROL INHALATION Inhale as instructed as needed. predniSONE EC 5 mg Delayed Release Tab Take 5 mg by mouth two times a day. peg 3350-Electrolytes (GOLYTELY) 236-22.74-6.74 -5.86 gram suspension Refer to printed prep instructions from your provider. 4000 mL 0 No current facility-administered medications for this visit. ALLERGIES No Known Allergies Review of Systems / PACC screen: Do you have difficulty climbing a full flight of stairs without feeling short of breath? no Do you require oxygen for y (more content not included)... [facility] HISTORY PHYSICALon HISTORY PHYSICAL HNO ID: [id number] Author: Socrates SARMEINTO MD Service: ? Author Type: Physician Type: H&P Filed: 02/03/2025 08:59 Note Text: COLORECTAL SURGERY New Patient Visit February 01, 2025 Chief Complaint: ESD referral. Images in chart Referred by: Dr. Aleman History of Present Illness: Joe Garcia is a 74 year old year old male with a PMHX or a history of polyps, HTN, HLD and asthma. He most recently underwent a colonoscopy screening with his last screening in 05/2022 due to history of polyps. His screedning from 01/29/25 showed a likely malignant obstructing tumor in the mid transverse colon. Pathology still pending. Dr. Aleman's note 01/29/2025 HISTORY AND PHYSICAL Joe Garcia : 1950 REFERRING PHYSICIAN: No referring provider defined for this encounter. CHIEF COMPLAINT: Patient presents with: Consult: colonoscopy HPI: Joe is a 74 year old male referred for endoscopy. Joe notes due for screening colonoscopy-hx of polyps (2022). Joe recently developed a diffuse rash all over his upper trunk, head, neck and arms-present since July. He was seen by derm and it was determined to be internal. PCP completed celiac work up, CEA, CT abd/pelv, referral to allergy AND hematology. -lab work pending 01/07 -no ct scan scheduled yet- waiting to see if it is covered by insurance Joe denies abdominal pain. Joe denies diarrhea. Joe denies constipation. Joe denies a change in bowel habits. Joe denies melena. Joe denies bright red blood per rectum. Joe notes daughter with celiac dx Joe notes heartburn. -recent increase, worse if eats bread -typically controlled with pepcid prn but seems to be taking it daily now Joe notes a distant history of dysphagia. -has resolved since starting the pepcid Joe notes unintentional weight loss -down 16 lbs Joe notes decreased appetite due to lack of taste Joe denies N/V/epigastric pain Joe's medical history is significant for HTN,HLD and asthma. He denies CP, SOB, dizziness, palpitations, syncope, edema, recent hospitalizations Joe has undergone prior endoscopy. Last colonoscopy was 05/[address] Kruse at [facility]. Sedation: Midazolam 6 mg IV, Fentanyl [...] biopsy: - Multiple fragments of tubulovillous adenoma. Colonoscopy 01/29/25 Impression: - Preparation of the colon was poor. 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 Biopsied. Tattooed. - The entire examined colon is normal. Biopsied. - Stool in the entire examined colon. - Non-bleeding internal hemorrhoids. - The examination was otherwise normal. EGD diagnostic 01/29/25 Impression: - Z-line irregular, 40 cm from the incisors. Biopsied. - LA Grade A reflux esophagitis with no bleeding. Biopsied. - Gastritis, characterized by erythema. Biopsied. - Normal examined duodenum. Biopsied. PAST MEDICAL HISTORY Diagnosis Date Asthma (HCC) Benign intracranial hypertension Hyperlipemia Hypertension PAST SURGICAL HISTORY Procedure Laterality Date COLONOSCOPY 06/06/2021 repeat in 6 months COLONOSCOPY SCREENING 12/19/2021 repeat in 6 months COLONOSCOPY SCRN NOT HIGH RISK 03/22/2020 TONSILLECTOMY HX Current Outpatient Medications Medication Sig Dispense Refill famotidine (PEPCID AC PO) Take 1 dose by mouth as needed (acid reflux). esomeprazole magnesium (NEXIUM 24HR ORAL) Take by mouth as needed. diphenhydramine HCl (ALLERGY MEDICATION ORAL) Take by mouth as needed. doxazosin (CARDURA) 4 mg tablet Take 4 mg by mouth daily at bedtime. pravastatin (PRAVACHOL) 40 mg tablet Take 40 mg by mouth once daily. ALBUTEROL INHALATION Inhale as instructed as needed. predniSONE EC 5 mg Delayed Release Tab Take 5 mg by mouth two times a day. peg 3350-Electrolytes (GOLYTELY) 236-22.74-6.74 -5.86 gram suspension Refer to printed prep instructions from your provider. 4000 mL 0 No current facility-administered medications for this visit. ALLERGIES No Known Allergies Review of Systems / PACC screen: Do you have difficulty climbing a full flight of stairs without feeling short of breath? no Do you require oxygen for your breathing or have your gone to an emergency department because of breathing problems? no Are you on dialysis or have you been told that your kidneys do not work well as they should? no Do have an implanted cardiac device (pacemaker, defibrillator etc.) that has not been checked in the last 6 m (more content not included)... [facility] CT Chest, Abd, Pel w/Contras ton 02-01-2025 CT Chest, Abd, Pel w/Contrast [facility] Imaging Services [address] [place] [address] CT Chest, Abd, Pel w/Contrast MR#: [id number] Acct: [id number] Name: MAIRA GARCIA Rep #: [id number] : 1950 M 74 From: Jm Trinidad MD PCP: Dr. Hector Jc MD Status: REG CLI Study: CT Chest, Abd, Pel w/Contrast Date of Exam: Exam# [id number] Ordering Dr: Hector Jc M D PROCEDURE: CT CHEST, ABD, PEL W/CONTRAST 02/01/2025 REASON FOR EXAM: RASH TECHNIQUE: Chest, abdomen and pelvis CT with intravenous contrast. Coronal and Sagittal reconstruction series were provided. One or more dose reduction techniques were used (e.g., Automated exposure control, adjustment of the mA and/or kV according to patient size, use of iterative reconstruction technique. PATIENT PREPARATION: Per protocol ORAL CONTRAST TYPE: None. AMOUNT: mL CONTRAST: Isovue 370 VOLUME: 75mL RADIATION DOSE SUMMARY: CTDlvol: 49.10 mGy DLP: 1772.91 mGycm COMPARISON: None FINDINGS: CT CHEST: Lower neck:The thyroid gland is normal. There is no supraclavicular lymphadenopathy. Mediastinum:There are no abnormal masses or lymphadenopathy. Heart and Vasculature:The heart size is normal. There is no pericardial effusion. There is calcific vascular disease of the coronary arteries and thoracic aorta. Esophagus:Normal. Chest wall:The soft tissues of the chest wall appear unremarkable. There are multiple reactive axillary lymph nodes bilaterally. There is mild multilevel degenerative disc disease of the thoracic spine. There is a large Schmorl's node in the superior endplate of L1 with associated anterior wedging of the superior endplate. Lungs, airways and pleura: The lungs are clear. There is no significant interstitial or alveolar lung disease. There are no pulmonary nodules or masses. There are no pleural effusions. CT ABDOMEN/PELVIS: Liver: Normal size. No mass. Gallbladder: Partially evacuated. Spleen: Normal size. Pancreas: Normal size without evidence of mass surrounding inflammation or ductal dilation. Adrenals: Normal. Kidneys: Normal renal sizes. No hydronephrosis. Bladder: Normal unenhanced appearance. Reproductive Organs: The prostate gland measures 5.4 cm in transverse dimension. The seminal vesicles are unremarkable. There is no free fluid in the pelvis. Bowel: Colonic diverticulosis without diverticulitis. Appendix: Normal. Lymph nodes: There is no significant mesenteric, retroperitoneal or pelvic lymphadenopathy. Vasculature: There is calcific vascular disease of the abdominal aorta. The origin of both common iliac arteries is heavily calcified. Peritoneum / Retroperitoneum: There are no abnormal intra or retroperitoneal masses or fluid collections. There are bilateral inguinal hernias, containing normal fat, measuring 2.8 cm in diameter on the right and 3.0 cm in diameter on the left. 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 There is anterior wedging of the superior endplate of L1. There is a large Schmorl's node in the superior endplate of L1. There is mild levoscoliosis of the lumbar spine. CT/CT Chest, Abd, Pel w/Contrast IMPRESSION: 1. Reactive axillary lymph nodes bilaterally of indeterminate clinical significance. 2. There is no acute cardiopulmonary pathology. 3. Prostatomegaly. 4. No evidence of acute abdominal or pelvic pathology. 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 Author Type: Registered Nurse Type: [id number] Filed: 01/29/2025 10:37 Note Text: The patient received a copy of Colonoscopy and EGD discharge instructions that contain information for how to contact the physician who performed the procedure and when to seek medical care. [facility] Colonoscopyon 01-29-2025 Colonoscopy [facility] Gastrointestinal Endoscopy Patient Name: Joe Garcia Procedure Date: 01/29/2025 9:35 AM Date of [...] May 2022. Referring Physician: Lexi Burnett (Referring ) Medicines: Fentanyl 100 micrograms IV, Midazolam 5 [...] be scheduled. Procedure Code(s): --- Professional --- 42045, Colonoscopy, flexible; with biopsy, single or multiple 01945, Colonoscopy, flexible; with directed submucosal injection(s), any substance G0500, Moderate sedation services provided by the same physician or other qualified health cardiac care nurse performing a gastrointestinal endoscopic service that sedation supports, requiring the presence of an independent trained observer to assist in the monitoring of the patient's level of consciousness and physiological status; initial 15 minutes of intra-service t (more content not included)... [facility] HISTORY PHYSICALon HISTORY PHYSICAL HNO ID: [id number] Author: YOSEPH ALEMAN MD Service: General Surgery Author Type: Physician Type: H&P Filed: 01/29/2025 09:41 Note Text: HISTORY AND PHYSICAL [facility] [place], [place] : 1950 REFERRING PHYSICIAN: No referring provider defined for this encounter. CHIEF COMPLAINT: Patient presents with: Consult: colonoscopy HPI: Joe is a 74 year old male referred for endoscopy. Joe notes due for screening colonoscopy-hx of polyps (2022). Joe recently developed a diffuse rash all over his upper trunk, head, neck and arms-present since July. He was seen by derm and it was determined to be internal. PCP completed celiac work up, CEA, CT abd/pelv, referral to allergy AND hematology. -lab work pending 01/07 -no ct scan scheduled yet- waiting to see if it is covered by insurance Joe denies abdominal pain. Joe denies diarrhea. Joe denies constipation. Joe denies a change in bowel habits. Joe denies melena. Joe denies bright red blood per rectum. Joe notes daughter with celiac dx Joe notes heartburn. -recent increase, worse if eats bread -typically controlled with pepcid prn but seems to be taking it daily now Joe notes a distant history of dysphagia. -has resolved since starting the pepcid Joe notes unintentional weight loss -down 16 lbs Joe notes decreased appetite due to lack of taste Joe denies N/V/epigastric pain Joe's medical history is significant for HTN,HLD and asthma. He denies CP, SOB, dizziness, palpitations, syncope, edema, recent hospitalizations Joe has undergone prior endoscopy. Last colonoscopy was 05/[address] Kruse at [facility]. Sedation: Midazolam 6 mg IV, Fentanyl [...] denies loss of stool control, and denies her (more content not included)... [facility] Pathology biopsy report Rayray (Tiss)on 01-29-2025 AP DISCLAIMER [facility] Comment on above: Order Comment: Speci men Type: TISSUE SPECIMEN Ordering Facility: [facility] Address: [address] [place] [address] Result Comment: Hilary Jiang Test (LDT) Disclaimer: Performance characteristics of immunohistochemical, immunofluorescent, and chromogenic in-situ hybridization tests have been determined by the performing laboratory within the [facility] Department of Pathology and Laboratory Medicine ([facility], [facility], [facility], [facility], [facility], [facility], or [facility]) in a manner consistent with CLIA requirements. One or more of these tests may not have been cleared or approved by the FDA. The [facility] Department of Pathology and Laboratory Medicine is regulated under CLIA as qualified to perform high-complexity testing. These tests are used for clinical purposes. These should not be regarded as investigational or for research. Positive and negative controls stain appropriately. Performed By: #### 6 6121-5 #### [facility] CLIA [id number] [address] [place] [address] [place] CASE REPORT [facility] Comment on above: Order Comment: Speci men Type: TISSUE SPECIMEN Ordering Facility: [facility] Address: [address] [place] [address] Result Comment: Surg [facility] Pathology Report Case: [id number] Authorizing Provider: Yoseph Aleman MD Collected: 01/29/2025 09:54 AM Ordering Location: Ambulatory Surgery Received: 01/29/2025 01:34 PM Pathologist: Elkin Denise MD Specimens: A) - Small Bowel, Duodenum, Biopsy B) - Stomach, Antrum, Biopsy, check for h/h C) - Esophagus, Distal, Biopsy D) - Esophagus, Mid, Biopsy E) - Colon, Biopsy, random colon bxs F) - Colon, Transverse, Biopsy, mid transverse mass bxs Performed By: #### 6 6121-5 #### [facility] CLIA [id number] [address] [place] [address] OF [place] CLINICAL HISTORY Normal [facility] Comment on above: Order Comment: Speci elaine Type: TISSUE SPECIMEN Ordering Facility: [facility] Address: [address] [place] [address] Result Comment: Dalia santos Diagnoses: Z12.11 - Encounter for screening for malignant neoplasm of colon Z12.11 - Screen for colon cancer Z86.0100 - History of colonic polyps R12 - Heart burn R63.4 - Unintentional weight loss Z83.79 - Family history of celiac disease Performed By: #### 6 6121-5 #### [facility] CLIA [id number] [address] [place] [address] [place] FINAL DIAGNOSIS [facility] Comment on above: Order Comment: Speci men Type: TISSUE SPECIMEN Ordering Facility: [facility] Address: [address] [place] [address] Result Comment: A. D uodenum, biopsy: - No significant pathologic change. B. Gastric antrum, biopsy: - No significant pathologic change. - No morphologic evidence of Helicobacter pylori. C. Distal esophagus, biopsy: - Squamous mucosa with focal ulcer and regenerative epithelial changes. - No evidence of intestinal metaplasia or dysplasia. - No evidence of eosinophilia. D. Mid esophagus, biopsy: - Fragments of unremarkable squamous mucosa. - No evidence of eosinophilia. E. Colon, random biopsy: - No significant pathologic change. - No evidence of lymphocytic or collagenous colitis. F. Transverse colon mass, biopsy: - Fragments of tubulovillous adenoma. - No evidence of invasive carcinoma. JRG/bs 02/02/2025 at 0856 EDT Performed By: #### 6 6121-5 #### [facility] CLIA [id number] [address] [place] [address] STATES [place] FINAL PERFORMING LAB [facility] Comment on above: Order Comment: Speci men Type: TISSUE SPECIMEN Ordering Facility: [facility] Address: [address] [place] [address] Result Comment: Diag nostic interpretation performed at: [facility], [address] [place] [address] CLIA# [id number] Bunk Assembler: Orestes Ochoa MD Performed By: #### 6 6121-5 #### [facility] CLIA [id number] [address] [place] [address] STATES [place] GROSS DESCRIPTION Normal [facility] Comment on above: Order Comment: Speci men Type: TISSUE SPECIMEN Ordering Facility: [facility] Address: [address] [place] [address] Result Comment: A. S mall Bowel, Duodenum, Biopsy Received in formalin is one piece of velázquez, soft tissue measuring 0.4 x 0.3 x 0.2 cm. Totally submitted in one cassette. B. Stomach, Antrum, Biopsy Received in formalin is one piece of velázquez, soft tissue measuring 0.9 x 0.2 x 0.2 cm. Totally submitted in one cassette. C. Esophagus, Distal, Biopsy Received in formalin are two pieces of velázquez-rayo, soft tissue aggregating to 1.2 x 0.3 x 0.1 cm. Totally submitted in one cassette. D. Esophagus, Mid, Biopsy Received in formalin is one piece of velázquez-rayo, soft tissue measuring 0.7 x 0.2 x 0.1 cm. Totally submitted in one cassette. E. Colon, Biopsy Received in formalin are multiple pieces of velázquez-brown, soft tissue aggregating to 2.0 x 0.7 x 0.3 cm. Totally submitted in two cassettes. F. Colon, Transverse, Biopsy Received in formalin are multiple pieces of velázquez, soft tissue aggregating to 1.1 x 0.3 x 0.3 cm. Totally submitted in one cassette. [facility] January 30, 2025 12:34 AM Gross examination performed at [facility], [address] [place] [address] Performed By: #### 6 6121-5 #### [facility] CLIA [id number] [address] [place] [address] [place] Upper GI endoscopy 10-17-2 025 Upper GI endoscopy [facility] Gastrointestinal Endoscopy Patient Name: Joe Garcia Procedure Date: 01/29/2025 9:37 AM Date of : 1950 Admit Type: Outpatient Age: 74 Gender: Male Note Status: Finalized Procedure: Upper GI endoscopy Indications: Heartburn, Weight loss Providers: Yoseph Aleman MD Patient Profile: This is a 74 year old male. Refer to note in patient chart for documentation of history and physical. Referring Physician: Lexi Burnett (Referring ) Medicines: Fentanyl 100 micrograms IV, Midazolam 5 [...] be scheduled. Procedure Code(s): --- Professional --- 17536, Esophagogastroduodenoscopy , flexible, transoral; with biopsy, single or multiple G0500, Moderate sedation services provided by the same physician or other qualified health cardiac care nurse performing a gastrointestinal endoscopic service that sedation supports, requiring the presence of an independent trained observer to assist in the monitoring of the patient's level of consciousness and physiological status; initial 15 minutes of intra-service time; patient age 5 years or older (additional time may be reported with 93069, as appropriate) 97280, Moderate sedation; each additional 15 minutes intraservice time Diagnosis Code(s): --- Professional --- K22.89, Other specified disease of esophagus K21.00, Gastro-esophageal reflux disease with esophagitis, without bleeding K29.70, Gastritis, unspecified, without bleeding R12, Heartburn R63.4, Abnormal weight loss CPT copyright 2020 [employer]. All rights reserved. The codes documented in this report are preliminary and upon computed tomography technician review may be revised to meet current compliance requirements. Attending Participation: I personally performed the entire procedure. Scope In: 9:51:56 AM Scope Out: 9:58:21 AM MD Yoseph Wright MD 01/29/2025 10:25:43 AM This report has been signed electronically by Yoseph (more content not included)... [facility] Allergen, Food Profile 1401-10-2025 BEEF <0.10 Normal Class 0 [facility] Comment on above: Order Comment: Order Date: 11/13/23 Order Info: [id number] - CBC Performed By: #### L 500.2500, L100.0500 #### [facility] [address] [place], [address] CHOCOLATE <0.10 Normal Class 0 [facility] Comment on above: Order Comment: Order Date: 11/13/23 Order Info: [id number] - CBC Performed By: #### L 500.2500, L100.0500 #### [facility] [address] [facility] [place], [address] CODFISH <0.10 Normal Class 0 [facility] Comment on above: Order Comment: Order Date: 11/13/23 Order Info: [id number] - CBC Performed By: #### L 500.2500, L100.0500 #### [facility] [address] [place], [place], [address] COMMENT Comment Normal . [facility] Comment on above: Order Comment: Order Date: 11/13/23 Order Info: [id number] - CBC Result Comment: Sophia ferrer of Specific IgE Class Description of Class ----- < 0.10 0 Negative 0.10 - 0.31 0/I Equivocal/Low 0.32 - 0.55 I Low 0.56 - 1.40 II Moderate 1.41 - 3.90 III High 3.91 - 19.00 IV Very High 19.01 - 100.00 V Very High >100.00 Very High Performed By: #### L 500.2500, L100.0500 #### [facility] [address] [place], [address] CORN <0.10 Normal Class 0 [facility] Comment on above: Order Comment: Order Date: 11/13/23 Order Info: [id number] - CBC Performed By: #### L 500.2500, L100.0500 #### [facility] [address] [place], [place], [address] EGG, WHOLE <0.10 Normal Class 0 [facility] Comment on above: Order Comment: Order Date: 11/13/23 Order Info: [id number] - CBC Result Comment: Perf ormed at: - [facility] [id number] Activities Director: Carlos Vilchis MD, Phone: [phone] Performed By: #### L 500.2500, L100.0500 #### [facility] [address] [place], [address] MILK (COW) <0.10 Normal Class 0 [facility] Comment on above: Order Comment: Order Date: 11/13/23 Order Info: [id number] - CBC Performed By: #### L 500.2500, L100.0500 #### [facility] [address] [place], [address] MUSSELS <0.10 Normal Class 0 [facility] Comment on above: Order Comment: Order Date: 11/13/23 Order Info: [id number] - CBC Performed By: #### L 500.2500, L100.0500 #### [facility] [address] [place], [address] PEANUT <0.10 Normal Class 0 [facility] Comment on above: Order Comment: Order Date: 11/13/23 Order Info: [id number] - CBC Performed By: #### L 500.2500, L100.0500 #### [facility] [address] [place], [address] PORK <0.10 Normal Class 0 [facility] Comment on above: Order Comment: Order Date: 11/13/23 Order Info: [id number] - CBC Performed By: #### L 500.2500, L100.0500 #### [facility] [address] [place], [address] SALMON <0.10 Normal Class 0 [facility] Comment on above: Order Comment: Order Date: 11/13/23 Order Info: [id number] - CBC Performed By: #### L 500.2500, L100.0500 #### [facility] [address] [place], [address] SHRIMP 0.13 kU/L Abnormal Class 0/I [facility] Comment on above: Order Comment: Order Date: 11/13/23 Order Info: [id number] - CBC Performed By: #### L 500.2500, L100.0500 #### [facility] [address] [place], [address] SOYBEAN <0.10 Normal Class 0 [facility] Comment on above: Order Comment: Order Date: 11/13/23 Order Info: [id number] - CBC Performed By: #### L 500.2500, L100.0500 #### [facility] [address] [place], [address] TUNA <0.10 Normal Class 0 [facility] Comment on above: Order Comment: Order Date: 11/13/23 Order Info: [id number] - CBC Performed By: #### L 500.2500, L100.0500 #### [facility] [address] [place], [address] WHEAT <0.10 Normal Class 0 [facility] Comment on above: Order Comment: Order Date: 11/13/23 Order Info: [id number] - CBC Performed By: #### L 500.2500, L100.0500 #### [facility] [address] [place], [address] Allergens, Zone 8on 01-11-20 25 A. ALTERNATA <0.10 Normal Class 0 [facility] Comment on above: Order Comment: Order Date: 11/13/23 Order Info: [id number] - CBC Performed By: #### L 500.2500, L100.0500 #### [facility] [address] [place], [address] ASPERGILLUS FUM <0.10 Normal Class 0 [facility] Comment on above: Order Comment: Order Date: 11/13/23 Order Info: [id number] - CBC Performed By: #### L 500.2500, L100.0500 #### [facility] [address] [place], [address] BAHIA GRASS <0.10 Normal Class 0 [facility] Comment on above: Order Comment: Order Date: 11/13/23 Order Info: [id number] - CBC Performed By: #### L 500.2500, L100.0500 #### [facility] [address] [place], [address] BERMUDA GRASS <0.10 Normal Class 0 [facility] Comment on above: Order Comment: Order Date: 11/13/23 Order Info: [id number] - CBC Performed By: #### L 500.2500, L100.0500 #### [facility] [address] [place], [address] BLUEGRASS, [place] <0.10 Normal Class 0 [facility] Comment on above: Order Comment: Order Date: 11/13/23 Order Info: [id number] - CBC Performed By: #### L 500.2500, L100.0500 #### [facility] [address] [place], [address] CAT HAIR/DANDER <0.10 Normal Class 0 [facility] Comment on above: Order Comment: Order Date: 11/13/23 Order Info: [id number] - CBC Performed By: #### L 500.2500, L100.0500 #### [facility] [address] [place], [address] CLADOSPOR HERB <0.10 Normal Class 0 [facility] Comment on above: Order Comment: Order Date: 11/13/23 Order Info: [id number] - CBC Performed By: #### L 500.2500, L100.0500 #### [facility] [address] [place], [address] COCKROACH,AMER <0.10 Normal Class 0 [facility] Comment on above: Order Comment: Order Date: 11/13/23 Order Info: [id number] - CBC Performed By: #### L 500.2500, L100.0500 #### [facility] [address] [place], [address] D FARINAE MITE <0.10 Normal Class 0 [facility] Comment on above: Order Comment: Order Date: 11/13/23 Order Info: [id number] - CBC Performed By: #### L 500.2500, L100.0500 #### [facility] [address] [place], [address] D PTERONYSSINUS <0.10 Normal Class 0 [facility] Comment on above: Order Comment: Order Date: 11/13/23 Order Info: [id number] - CBC Performed By: #### L 500.2500, L100.0500 #### [facility] [address] [place], [address] DOG EPITHELIA <0.10 Normal Class 0 [facility] Comment on above: Order Comment: Order Date: 11/13/23 Order Info: [id number] - CBC Performed By: #### L 500.2500, L100.0500 #### [facility] [address] [place], [address] ELM,AMER WHITE <0.10 Normal Class 0 [facility] Comment on above: Order Comment: Order Date: 11/13/23 Order Info: [id number] - CBC Performed By: #### L 500.2500, L100.0500 #### [facility] [address] [place], [address] HAZELNUT TREE <0.10 Normal Class 0 [facility] Comment on above: Order Comment: Order Date: 11/13/23 Order Info: [id number] - CBC Performed By: #### L 500.2500, L100.0500 #### [facility] [address] [place], [address] HICKORY, WHITE <0.10 Normal Class 0 [facility] Comment on above: Order Comment: Order Date: 11/13/23 Order Info: [id number] - CBC Performed By: #### L 500.2500, L100.0500 #### [facility] [address] [place], [address] SHERWIN GRASS <0.10 Normal Class 0 [facility] Comment on above: Order Comment: Order Date: 11/13/23 Order Info: [id number] - CBC Performed By: #### L 500.2500, L100.0500 #### [facility] [address] [place], [address] MAPLE/BOX ELDER <0.10 Normal Class 0 [facility] Comment on above: Order Comment: Order Date: 11/13/23 Order Info: [id number] - CBC Performed By: #### L 500.2500, L100.0500 #### [facility] [address] [place], [address] MOUNTAIN CEDAR <0.10 Normal Class 0 [facility] Comment on above: Order Comment: Order Date: 11/13/23 Order Info: [id number] - CBC Performed By: #### L 500.2500, L100.0500 #### [facility] [address] [place], [address] MUCOR RACEMOSUS <0.10 Normal Class 0 [facility] Comment on above: Order Comment: Order Date: 11/13/23 Order Info: [id number] - CBC Performed By: #### L 500.2500, L100.0500 #### [facility] [address] [place], [address] MUGWORT <0.10 Normal Class 0 [facility] Comment on above: Order Comment: Order Date: 11/13/23 Order Info: [id number] - CBC Performed By: #### L 500.2500, L100.0500 #### [facility] [address] [place], [address] MULBERRY, WHITE <0.10 Normal Class 0 [facility] Comment on above: Order Comment: Order Date: 11/13/23 Order Info: [id number] - CBC Performed By: #### L 500.2500, L100.0500 #### [facility] [address] [place], [address] NETTLE <0.10 Normal Class 0 [facility] Comment on above: Order Comment: Order Date: 11/13/23 Order Info: [id number] - CBC Performed By: #### L 500.2500, L100.0500 #### [facility] [address] [place], [address] OAK, WHITE <0.10 Normal Class 0 [facility] Comment on above: Order Comment: Order Date: 11/13/23 Order Info: [id number] - CBC Performed By: #### L 500.2500, L100.0500 #### [facility] [address] [place], [address] PEN CHRYSOGEN <0.10 Normal Class 0 [facility] Comment on above: Order Comment: Order Date: 11/13/23 Order Info: [id number] - CBC Performed By: #### L 500.2500, L100.0500 #### [facility] [address] [place], [address] PIGWEED, ROUGH <0.10 Normal Class 0 [facility] Comment on above: Order Comment: Order Date: 11/13/23 Order Info: [id number] - CBC Performed By: #### L 500.2500, L100.0500 #### [facility] [address] [place], [address] PLANTAIN,ENGLSH <0.10 Normal Class 0 [facility] Comment on above: Order Comment: Order Date: 11/13/23 Order Info: [id number] - CBC Performed By: #### L 500.2500, L100.0500 #### [facility] [address] [place], [address] RAGWEED SH/COM <0.10 Normal Class 0 [facility] Comment on above: Order Comment: Order Date: 11/13/23 Order Info: [id number] - CBC Performed By: #### L 500.2500, L100.0500 #### [facility] [address] [place], [address] SHEEP SORREL <0.10 Normal Class 0 [facility] Comment on above: Order Comment: Order Date: 11/13/23 Order Info: [id number] - CBC Performed By: #### L 500.2500, L100.0500 #### [facility] [address] [place], [address] STEMPHYLIUM HER <0.10 Normal Class 0 [facility] Comment on above: Order Comment: Order Date: 11/13/23 Order Info: [id number] - CBC Performed By: #### L 500.2500, L100.0500 #### [facility] [address] [place], [address] SWEET GUM <0.10 Normal Class 0 [facility] Comment on above: Order Comment: Order Date: 11/13/23 Order Info: [id number] - CBC Performed By: #### L 500.2500, L100.0500 #### [facility] [address] [place], [address] SYCAMORE, AMER <0.10 Normal Class 0 [facility] Comment on above: Order Comment: Order Date: 11/13/23 Order Info: [id number] - CBC Performed By: #### L 500.2500, L100.0500 #### [facility] [address] [place], [address] CNOVon 01-07-2025 CNOV Office Visit (GENSWS ) -- JOE GARCIA ([id number]) 1950 Date Time Provider Department 01/07/25 10:00 AM LEXI BURNETTS During your visit today, we recorded the following information about you: Pulse Respiration Blood pressure Weight 65/minute 14/minute 162/62 91.5 kg Lexi Burnett APRN.CNP 01/07/2025 10:43 AM Signed HISTORY AND PHYSICAL Joe Garcia : 1950 REFERRING PHYSICIAN: No referring provider defined for this encounter. CHIEF COMPLAINT: Patient presents with: Consult: colonoscopy HPI: Joe is a 74 year old male referred for endoscopy. Joe notes due for screening colonoscopy-hx of polyps (2022). Joe recently developed a diffuse rash all over his upper trunk, head, neck and arms-present since July. He was seen by derm and it was determined to be internal. PCP completed celiac work up, CEA, CT abd/pelv, referral to allergy AND hematology. -lab work pending 01/07 -no ct scan scheduled yet- waiting to see if it is covered by insurance Joe denies abdominal pain. Joe denies diarrhea. Joe denies constipation. Joe denies a change in bowel habits. Joe denies melena. Joe denies bright red blood per rectum. Joe notes daughter with celiac dx Joe notes heartburn. -recent increase, worse if eats bread -typically controlled with pepcid prn but seems to be taking it daily now Joe notes a distant history of dysphagia. -has resolved since starting the pepcid Joe notes unintentional weight loss -down 16 lbs Joe notes decreased appetite due to lack of taste Joe denies N/V/epigastric pain Joe's medical history is significant for HTN,HLD and asthma. He denies CP, SOB, dizziness, palpitations, syncope, edema, recent hospitalizations Joe has undergone prior endoscopy. Last colonoscopy was 05/[address] Kruse at [facility]. Sedation: Midazolam 6 mg IV, Fentanyl [...] infections, and denies bloody urine. Skin: The p (more content not included)... Normal [facility] Carcinoembryonic Antigenon 0 01-07-2025 CEA 1.1 ng/mL Normal 0.0-4.7 [facility] Comment on above: Order Comment: Order Date: 11/13/23 Order Info: [id number] - CBC Result Comment: Nons mokers <3.9 Smokers <5.6 [facility] Electrochemiluminescence Immunoassay (ECLIA) Values obtained with different assay methods or kits cannot be used interchangeably. Results cannot be interpreted as absolute evidence of the presence or absence of malignant disease. Performed at: [address] [id number] Activities Director: Wyatt Kevin PhD, Phone: [phone] Performed By: #### L 500.2500, L100.0500 #### [facility] [address] [place], [place], [address] Celiac AB,Comprehensive ANTIGLIADIN IGA 3 units Normal 0-19 [facility] Comment on above: Order Comment: Order Date: 11/13/23 Order Info: [id number] - CBC Result Comment: Nega tive 0 - 19 Weak Positive 20 - 30 Moderate to Strong Positive >30 Performed By: #### L 500.2500, L100.0500 #### [facility] [address] [place], [address] ANTIGLIADIN IGG 1 units Normal 0-19 [facility] Comment on above: Order Comment: Order Date: 11/13/23 Order Info: [id number] - CBC Result Comment: Nega tive 0 - 19 Weak Positive 20 - 30 Moderate to Strong Positive >30 Performed By: #### L 500.2500, L100.0500 #### [facility] [address] [place], [address] ENDOMYSIAL IGA Negative Normal Negative [facility] Comment on above: Order Comment: Order Date: 11/13/23 Order Info: [id number] - CBC Performed By: #### L 500.2500, L100.0500 #### [facility] [address] [place], [address] IMMUNOGLOB A QN 230 mg/dL Normal 61-437 [facility] Comment on above: Order Comment: Order Date: 11/13/23 Order Info: [id number] - CBC Performed By: #### L 500.2500, L100.0500 #### [facility] [address] [place], [address] tTG IGA <2 Normal 0-3 [facility] Comment on above: Order Comment: Order Date: 11/13/23 Order Info: [id number] - CBC Result Comment: Nega tive 0 - 3 Weak Positive 4 - 10 Positive >10 Tissue Transglutaminase (tTG) has been identified as the endomysial antigen. Studies have demonstr- ated that endomysial IgA antibodies have over 99% specificity for gluten sensitive enteropathy. Performed By: #### L 500.2500, L100.0500 #### [facility] [address] [place], [address] tTG IGG <2 Normal 0-5 [facility] Comment on above: Order Comment: Order Date: 11/13/23 Order Info: [id number] - CBC Result Comment: Nega tive 0 - 5 Weak Positive 6 - 9 Positive >9 Performed By: #### L 500.2500, L100.0500 #### [facility] [address] [place], [address] Absolute lymphocyte countOrd ered By: Hector Jc on 01-05-2025 Lymphocytes Auto (Unsp spec) [#/Vol] 1.50 10*3/uL 0.83-4.51 [facility] Absolute neutrophil countOrd ered By: Hector Jc on 01-05-2025 Neutrophils (Bld) [#/Vol] 4.1 10*3/uL 2.0-7.7 [facility] Anion gap in Serum or Plasma Ordered By: Hector Jc on 01-05-2025 Anion gap [Moles/Vol] 12 mmol/L 5-15 [facility] Automated lymphocyte count a s percentage of total leukocytesOrdered By: Hector Jc on 01-05-2025 Lymphocytes/100 WBC Auto (Unsp spec) 23.8 % 19- [facility] BUN/creatinine ratioOrdered By: Hector Jc on 01-05-2025 Urea nitrogen/Creatinine [Mass ratio] 10.8 mg/mg 10-20 [facility] Basophil percentageOrdered B y: Hector Jc on 01-05-2025 Basophils/100 WBC (Bld) 0.3 % 0-1 [facility] Bilirubin, totalOrdered By: Hector Jc on 01-05-2025 Bilirubin [Mass/Vol] 1.33 mg/dL High 0.00-1.30 [facility] CBC W/Diff, Automatedon 12-15 Absolute Lymph 1.50 X10 3/uL Normal 0.83-4.51 [facility] Comment on above: Order Comment: Order Date: 11/13/23 Order Info: [id number] - CBC Performed By: #### L 500.2500, L100.0500 #### [facility] [address] [place], [address] Absolute Neut 4.1 X10 3/uL Normal 2.0-7.7 [facility] Comment on above: Order Comment: Order Date: 11/13/23 Order Info: [id number] - CBC Performed By: #### L 500.2500, L100.0500 #### [facility] [address] [place], [address] Basophils/100 WBC (Bld) 0.3 % Normal 0-1 [facility] Comment on above: Order Comment: Order Date: 11/13/23 Order Info: [id number] - CBC Performed By: #### L 500.2500, L100.0500 #### [facility] [address] [place], [address] Eosinophils/100 WBC (Bld) 2.7 % Normal 0-5 [facility] Comment on above: Order Comment: Order Date: 11/13/23 Order Info: [id number] - CBC Performed By: #### L 500.2500, L100.0500 #### [facility] [address] [place], [address] Erythrocyte distribution width (RBC) [Ratio] 12.6 % Normal 11.6-14.6 [facility] Comment on above: Order Comment: Order Date: 11/13/23 Order Info: [id number] - CBC Performed By: #### L 500.2500, L100.0500 #### [facility] [address] [place], [address] Hematocrit (Bld) [Volume fraction] 47.2 % Normal 40-54 [facility] Comment on above: Order Comment: Order Date: 11/13/23 Order Info: [id number] - CBC Performed By: #### L 500.2500, L100.0500 #### [facility] [address] [place], [address] Hemoglobin (Bld) [Mass/Vol] 15.5 g/dL Normal 13.0-16.5 [facility] Comment on above: Order Comment: Order Date: 11/13/23 Order Info: [id number] - CBC Performed By: #### L 500.2500, L100.0500 #### [facility] [address] [place], [address] IG% 0.600 Normal 0.0-0.9 [facility] Comment on above: Order Comment: Order Date: 11/13/23 Order Info: [id number] - CBC Result Comment: IG% - Immature Granulocytes (promyelocytes, myelocytes and metamyelocytes) > 1% indicates that a LEFT SHIFT is Present. Performed By: #### L 500.2500, L100.0500 #### [facility] [address] [place], [address] Lymphocytes/100 WBC (Bld) 23.8 % Normal 19-41 [facility] Comment on above: Order Comment: Order Date: 11/13/23 Order Info: [id number] - CBC Performed By: #### L 500.2500, L100.0500 #### [facility] [address] [place], [address] MCH (RBC) [Entitic mass] 30.9 pg Normal 27.0-32.0 [facility] Comment on above: Order Comment: Order Date: 11/13/23 Order Info: [id number] - CBC Performed By: #### L 500.2500, L100.0500 #### [facility] [address] [place], [address] MCHC (RBC) [Mass/Vol] 32.8 g/dL Normal 32-36 [facility] Comment on above: Order Comment: Order Date: 11/13/23 Order Info: [id number] - CBC Performed By: #### L 500.2500, L100.0500 #### [facility] [address] [place], [address] MCV (RBC) [Entitic vol] 94.0 fL Normal 80-94 [facility] Comment on above: Order Comment: Order Date: 11/13/23 Order Info: [id number] - CBC Performed By: #### L 500.2500, L100.0500 #### [facility] [address] [place], [address] Monocytes/100 WBC (Bld) 8.1 % Normal 0-10 [facility] Comment on above: Order Comment: Order Date: 11/13/23 Order Info: [id number] - CBC Performed By: #### L 500.2500, L100.0500 #### [facility] [address] [place], [address] Neutrophils/100 WBC (Bld) 64.5 % Normal 47-70 [facility] Comment on above: Order Comment: Order Date: 11/13/23 Order Info: [id number] - CBC Performed By: #### L 500.2500, L100.0500 #### [facility] [address] [place], [address] Nucleated RBC (Bld) [#/Vol] 0 10*3/uL Normal 0-5 [facility] Comment on above: Order Comment: Order Date: 11/13/23 Order Info: [id number] - CBC Performed By: #### L 500.2500, L100.0500 #### [facility] [address] [place], [address] Platelet mean volume (Bld) [Entitic vol] 10.6 fL Normal 6.2-12.0 [facility] Comment on above: Order Comment: Order Date: 11/13/23 Order Info: [id number] - CBC Performed By: #### L 500.2500, L100.0500 #### [facility] [address] [place], [address] Platelets (Bld) [#/Vol] 238 10*3/uL Normal 150-450 [facility] Comment on above: Order Comment: Order Date: 11/13/23 Order Info: [id number] - CBC Performed By: #### L 500.2500, L100.0500 #### [facility] [address] [place], [address] RBC (Bld) [#/Vol] 5.02 10*6/uL Normal 4.6-6.2 [facility] Comment on above: Order Comment: Order Date: 11/13/23 Order Info: [id number] - CBC Performed By: #### L 500.2500, L100.0500 #### [facility] [address] [place], [address] RDW SD 43.7 fl Normal 35.1-43.9 [facility] Comment on above: Order Comment: Order Date: 11/13/23 Order Info: [id number] - CBC Performed By: #### L 500.2500, L100.0500 #### [facility] [address] [place], [address] WBC (Bld) [#/Vol] 6.3 10*3/uL Normal 4.4-11.0 [facility] Comment on above: Order Comment: Order Date: 11/13/23 Order Info: [id number] - CBC Performed By: #### L 500.2500, L100.0500 #### [facility] [address] [place], [address] Carbon dioxide, total [Moles /volume] in Central venous bloodOrdered By: Hector Jc on 01-05-2025 CO2 [Moles/Vol] 23.6 mmol/L 21.0-32.0 [facility] Chloride assayOrdered By: Joselo Jc on 01-05-2025 Chloride [Moles/Vol] 104 mmol/L 98-108 [facility] Comprehensive Metabolic Prof ilon 01-05-2025 Albumin [Mass/Vol] 4.4 g/dL Normal 3.4-4.8 [facility] Comment on above: Order Comment: Order Date: 01/05/25Order Info: [id number] - CMP Performed By: #### L 500.4050 ####[facility] [address] [place], [address] Albumin/Globulin [Mass ratio] 1.8 {ratio} Normal 0.9-2.4 [facility] Comment on above: Order Comment: Order Date: 01/05/25Order Info: [id number] - CMP Performed By: #### L 500.4050 ####[facility] [address] [place], [address] ALK PHOS 63 U/L Normal 40-129 [facility] Comment on above: Order Comment: Order Date: 01/05/25Order Info: [id number] - CMP Performed By: #### L 500.4050 ####[facility] [address] [place], [address] ALT [Catalytic activity/Vol] 29 U/L Normal <=46 [facility] Comment on above: Order Comment: Order Date: 01/05/25Order Info: [id number] - CMP Performed By: #### L 500.4050 ####[facility] [address] [place], [address] AST [Catalytic activity/Vol] 23 U/L Normal <=37 [facility] Comment on above: Order Comment: Order Date: 01/05/25Order Info: [id number] - CMP Performed By: #### L 500.4050 ####[facility] [address] [place], [address] Bilirubin [Mass/Vol] 1.33 mg/dL High 0.00-1.30 [facility] Comment on above: Order Comment: Order Date: 01/05/25Order Info: [id number] - CMP Performed By: #### L 500.4050 ####[facility] [address] [place], [address] BUN/CRE 10.8 RATIO Normal 10-20 [facility] Comment on above: Order Comment: Order Date: 01/05/25Order Info: [id number] - CMP Performed By: #### L 500.4050 ####[facility] [address] [place], [address] Calcium [Mass/Vol] 9.1 mg/dL Normal 7.6-11.0 [facility] Comment on above: Order Comment: Order Date: 01/05/25Order Info: 0786-1 - CMP Performed By: #### L 500.4050 ####[facility] [address] [place], [address] Chloride [Moles/Vol] 104 mmol/L Normal 98-108 [facility] Comment on above: Order Comment: Order Date: 01/05/25Order Info: 0786-1 - CMP Performed By: #### L 500.4050 ####[facility] [address] [place], [place], [address] CO2 [Moles/Vol] 23.6 mmol/L Normal 21.0-32.0 [facility] Comment on above: Order Comment: Order Date: 01/05/25Order Info: 0786-1 - CMP Performed By: #### L 500.4050 ####[facility] [address] [place], [address] Creatinine [Mass/Vol] 1.07 mg/dL Normal 0.70-1.20 [facility] Comment on above: Order Comment: Order Date: 01/05/25Order Info: 0786-1 - CMP Performed By: #### L 500.4050 ####[facility] [address] [place], [address] GAP 12 Normal 5-15 [facility] Comment on above: Order Comment: Order Date: 01/05/25Order Info: 0786-1 - CMP Performed By: #### L 500.4050 ####[facility] [address] [place], [place], [address] GFR/1.73 sq M.predicted among non-blacks MDRD (S/P/Bld) [Vol rate/Area] 73 mL/min/{1.73_m2} Normal >60 [facility] Comment on above: Order Comment: Order Date: 01/05/25Order Info: 0786-1 - CMP Result Comment: mL/m in/1.73m2 CKD-EPI Creatinine Equation (2020) Performed By: #### L 500.4050 ####[facility] [address] [place], [place], [address] Globulin (S) [Mass/Vol] 2.5 g/dL Normal 2.2-4.2 [facility] Comment on above: Order Comment: Order Date: 01/05/25Order Info: 0786-1 - CMP Performed By: #### L 500.4050 ####[facility] [address] [place], [address] Glucose [Mass/Vol] 90 mg/dL Normal 70-99 [facility] Comment on above: Order Comment: Order Date: 01/05/25Order Info: 0786-1 - CMP Performed By: #### L 500.4050 ####[facility] [address] [place], [address] Potassium [Moles/Vol] 3.9 mmol/L Normal 3.3-5.1 [facility] Comment on above: Order Comment: Order Date: 01/05/25Order Info: 0786-1 - CMP Performed By: #### L 500.4050 ####[facility] [address] [place], [address] Sodium [Moles/Vol] 139 mmol/L Normal 133-145 [facility] Comment on above: Order Comment: Order Date: 01/05/25Order Info: 0786-1 - CMP Performed By: #### L 500.4050 ####[facility] [address] [place], [address] T PROT 6.8 g/dL Normal 5.9-8.4 [facility] Comment on above: Order Comment: Order Date: 01/05/25Order Info: 0786-1 - CMP Performed By: #### L 500.4050 ####[facility] [address] [place], [address] Urea nitrogen [Mass/Vol] 12 mg/dL Normal 4-19 [facility] Comment on above: Order Comment: Order Date: 01/05/25Order Info: 0786-1 - CMP Performed By: #### L 500.4050 ####[facility] [address] [place], [address] Eosinophil percentageOrdered By: Hector Jc on 01-05-2025 Eosinophils/100 WBC (Bld) 2.7 % 0-5 [facility] Erythrocyte distribution wid th ratioOrdered By: Hector Jc on 01-05-2025 Erythrocyte distribution width (RBC) [Ratio] 12.6 % 11.6-14.6 [facility] Erythrocyte distribution wid th standard deviationOrdered By: Hector Jc on 01-05-2025 Erythrocyte distribution width (RBC) [Ratio] 43.7 fl 35.1-43.9 [facility] Glomerular filtration rate ( GFR) estimation/1.73 sq m using serum, plasma, or whole bOrdered By: Hector Jc on 01-05-2025 GFR/1.73 sq M.predicted among non-blacks MDRD (S/P/Bld) [Vol rate/Area] 73 mL/min/{1.73_m2} >60 [facility] Comment on above: mL/min/1.73m2 CKD-EP I Creatinine Equation (2020) Hematocrit Auto (Bld) [Volum e fraction]Ordered By: Hector Jc on 01-05-2025 Hematocrit (Bld) [Volume fraction] 47.2 % 40-54 [facility] Hemoglobin measurementOrdere d By: Hector Jc on 01-05-2025 Hemoglobin (Bld) [Mass/Vol] 15.5 g/dL 13.0-16.5 [facility] Immature granulocytes/100 WB C Auto (Bld)Ordered By: Hector Jc on 01-05-2025 Immature granulocytes/100 WBC (Bld) 0.600 % 0.0-0.9 [facility] Comment on above: IG% - Immature Granu locytes (promyelocytes, myelocytes and metamyelocytes) > 1% indicates that a LEFT SHIFT is Present. Laboratory - Chemistry and C hemistry - challengeOrdered By: Hector Jc on 01-05-2025 AST [Catalytic activity/Vol] 23 U/L <38 [facility] Laboratory - Miscellaneous t estsOrdered By: Hector Jc on 01-05-2025 Service comment (Unsp spec) [Interp] Comment . [facility] Comment on above: Levels of Specific I gE Class Description of Class ----- < 0.10 0 Negative 0.10 - 0.31 0/I Equivocal/Low 0.32 - 0.55 I Low 0.56 - 1.40 II Moderate 1.41 - 3.90 III High 3.91 - 19.00 IV Very High 19.01 - 100.00 V Very High >100.00 Very High MCV (mean corpuscular volume ) determinationOrdered By: Hector Jc on 01-05-2025 MCV (RBC) [Entitic vol] 94.0 fL 80-94 [facility] Mean corpuscular hemoglobin (MCH) determinationOrdered By: Hector Jc on 01-05-2025 MCH (RBC) [Entitic mass] 30.9 pg 27.0-32.0 [facility] Mean corpuscular hemoglobin concentration (MCHC) determinationOrdered By: Hector Jc on 01-05-2025 MCHC (RBC) [Mass/Vol] 32.8 g/dL 32-36 [facility] Mean platelet volume determi nationOrdered By: Hector Jc on 01-05-2025 Platelet mean volume (Bld) [Entitic vol] 10.6 fL 6.2-12.0 [facility] Monocyte percentageOrdered B y: Hector Jc on 01-05-2025 Monocytes/100 WBC (Bld) 8.1 % 0-10 [facility] Neutrophil percentageOrdered By: Hector Jc on 01-05-2025 Neutrophils/100 WBC (Bld) 64.5 % 47-70 [facility] No Panel InformationOrdered By: Hector Jc on 01-05-2025 Tissue Transglutaminase IgG Ab <2 U/mL 0-5 [facility] Comment on above: Negative 0 - 5 Weak Positive 6 - 9 Positive >9 Nucleated red blood cell per centageOrdered By: Hector Jc on 01-05-2025 Nucleated RBC/100 WBC (Bld) [Ratio] 0 % 0-5 [facility] Platelet countOrdered By: Joselo Jc on 01-05-2025 Platelets (Bld) [#/Vol] 238 10*3/uL 150-450 [facility] Potassium measurement (mass/ volume)Ordered By: Hector Jc on 01-05-2025 Potassium (Unsp spec) [Mass/Vol] 3.9 mmol/L 3.3-5.1 [facility] RBC Auto (Bld) [#/Vol]Ordere d By: Hector Jc on 01-05-2025 RBC (Bld) [#/Vol] 5.02 10*6/uL 4.6-6.2 [facility] Serum Berm[place] grass IgE anti body assay (units/volume)Ordered By: Hector Jc on 01-05-2025 Berm[place] grass IgE Qn (S) <0.10 kU/L Class 0 [facility] Serum Cladosporium herbarum IgE antibody assay (units/volume)Ordered By: Hector Jc on 01-05-2025 C. herbarum IgE Qn (S) <0.10 kU/L Class 0 [facility] Serum house dust mi te IgE antibody assay (units/volume)Ordered By: Hector Jc on 01-05-2025 house dust mite IgE Qn (S) <0.10 kU/L Class 0 [facility] Serum Sherwin grass IgE anti body assay (units/volume)Ordered By: Hector Jc on 01-05-2025 Sherwin grass IgE Qn (S) <0.10 kU/L Class 0 [facility] Serum [place] blue grass Ig E antibody assay (units/volume)Ordered By: Hector Jc on 01-05-2025 [place] blue grass IgE Qn (S) <0.10 kU/L Class 0 [facility] Serum Morus alba IgE antibod y assay (units/volume)Ordered By: Hector Jc on 01-05-2025 White mulberry IgE Qn (S) <0.10 kU/L Class 0 [facility] Serum Urtica dioica IgE anti body assay (units/volume)Ordered By: Hector Jc on 01-05-2025 Nettle IgE Qn (S) <0.10 kU/L Class 0 [facility] Serum bahia grass IgE antibo dy assay (units/volume)Ordered By: Hector Jc on 01-05-2025 Bahia grass IgE Qn (S) <0.10 kU/L Class 0 [facility] Serum beef IgE antibody assa y (units/volume)Ordered By: Hector Jc on 01-05-2025 Beef IgE Qn (S) <0.10 kU/L Class 0 [facility] Serum cat dander IgE antibod y assay (units/volume)Ordered By: Hector Jc on 01-05-2025 Cat dander IgE Qn (S) <0.10 kU/L Class 0 [facility] Serum codfish IgE antibody a ssay (units/volume)Ordered By: Hector Jc on 01-05-2025 Codfish IgE Qn (S) <0.10 kU/L Class 0 [facility] Serum corn IgE antibody assa y (units/volume)Ordered By: Hector Jc on 01-05-2025 [place] IgE Qn (S) <0.10 kU/L Class 0 [facility] Serum cow milk IgE antibody assay (units/volume)Ordered By: Hector Jc on 01-05-2025 Cow milk IgE Qn (S) <0.10 kU/L Class 0 [facility] Serum creatinine measurement (mass/volume)Ordered By: Hector Jc on 01-05-2025 Creatinine [Mass/Vol] 1.07 mg/dL 0.70-1.20 [facility] Serum dog epithelium IgE ant ibody assay (units/volume)Ordered By: Hector Jc on 01-05-2025 Dog epithelium IgE Qn (S) <0.10 kU/L Class 0 [facility] Serum globulin measurementOr dered By: Hector Jc on 01-05-2025 Globulin (S) [Mass/Vol] 2.5 g/dL 2.2-4.2 [facility] Serum glucose measurement (m ass/volume)Ordered By: Hector Jc on 01-05-2025 Glucose [Mass/Vol] 90 mg/dL 70-99 [facility] Serum hazelnut pollen IgE an tibody assay (units/volume)Ordered By: Hector Jc on 01-05-2025 Hazelnut Pollen IgE Qn (S) <0.10 kU/L Class 0 [facility] Serum mugwort IgE antibody a ssay (units/volume)Ordered By: Hector Jc on 01-05-2025 Mugwort IgE Qn (S) <0.10 kU/L Class 0 [facility] Serum or plasma alanine morin otransferase (ALT) measurementOrdered By: Hector Jc on 01-05-2025 ALT [Catalytic activity/Vol] 29 U/L <47 [facility] Serum or plasma albumin jon urement (mass/volume)Ordered By: Hector Jc on 01-05-2025 Albumin [Mass/Vol] 4.4 g/dL 3.4-4.8 [facility] Serum or plasma albumin/glob ulin mass ratioOrdered By: Lauromusc health florence medical centerbindu Jc on 01-05-2025 Albumin/Globulin [Mass ratio] 1.8 {ratio} 0.9-2.4 [facility] Serum or plasma alkaline sebastian sphatase measurementOrdered By: Hector Jc on 01-05-2025 ALP [Catalytic activity/Vol] 63 U/L 40-129 [facility] Serum or plasma calcium jon urement (mass/volume)Ordered By: Hector Jc on 01-05-2025 Calcium [Mass/Vol] 9.1 mg/dL 7.6-11.0 [facility] Serum or plasma carcinoembry onic antigen measurement (mass/volume)Ordered By: Hector Jc on 01-05-2025 Carcinoembryonic Ag [Mass/Vol] 1.1 ng/mL 0.0-4.7 [facility] Comment on above: Nonsmokers <3.9 Smok ers <5.6[employer] Electrochemiluminescence Immunoassay(ECLIA)Values obtained with different assay methods or kitscannot be used interchangeably. Results cannot beinterpreted as absolute evidence of the presence orabsence of malignant disease.Performed at: [facility] [address] [id number] Director: Wyatt Kevin PhD, Phone: [phone] Serum or plasma urea nitroge n measurement (mass/volume)Ordered By: Hector Jc on 01-05-2025 Urea nitrogen [Mass/Vol] 12 mg/dL 4-19 [facility] Serum peanut IgE antibody as say (units/volume)Ordered By: Hector Jc on 01-05-2025 Peanut IgE Qn (S) <0.10 kU/L Class 0 [facility] Serum pork IgE antibody assa y (units/volume)Ordered By: Hector Jc on 01-05-2025 Pork IgE Qn (S) <0.10 kU/L Class 0 [facility] Serum salmon IgE antibody as say (units/volume)Ordered By: Hector Jc on 01-05-2025 Yellow Jacket IgE Qn (S) <0.10 kU/L Class 0 [facility] Serum sheep sorrel IgE antib sharon assay (units/volume)Ordered By: Hector Jc on 01-05-2025 Sheep [place] IgE Qn (S) <0.10 kU/L Class 0 [facility] Serum soybean IgE antibody a ssay (units/volume)Ordered By: Hector Jc on 01-05-2025 Soybean IgE Qn (S) <0.10 kU/L Class 0 [facility] Serum tissue transglutaminas e (tTG) IgA antibody assay (units/volume)Ordered By: Hector Jc on 01-05-2025 tTG IgA Qn (S) <2 U/mL 0-3 [facility] Comment on above: Negative 0 - 3 Weak Positive 4 - 10 Positive >10 Tissue Transglutaminase (tTG) has been identified as the endomysial antigen. Studies have demonstr- ated that endomysial IgA antibodies have over 99% specificity for gluten sensitive enteropathy. Serum tuna IgE antibody assa y (units/volume)Ordered By: Hector Jc on 01-05-2025 Tuna IgE Qn (S) <0.10 kU/L Class 0 [facility] Serum wheat IgE antibody ass ay (units/volume)Ordered By: Hector Jc on 01-05-2025 Wheat IgE Qn (S) <0.10 kU/L Class 0 [facility] Serum white elm IgE antibody assay (units/volume)Ordered By: Hector Jc on 01-05-2025 White Elm IgE Qn (S) <0.10 kU/L Class 0 [facility] Serum white oak IgE antibody assay (units/volume)Ordered By: Hector Jc on 01-05-2025 [place] IgE Qn (S) <0.10 kU/L Class 0 [facility] Serum whole egg IgE antibody assay (units/volume)Ordered By: Hector Jc on 01-05-2025 Whole Egg IgE Qn (S) <0.10 kU/L Class 0 [facility] Comment on above: Performed at: [address] [id number] Director: Carlos Vilchis MD, Phone: [phone] Sodium levelOrdered By: Rajeev Jc on 01-05-2025 Sodium [Moles/Vol] 139 mmol/L 133-145 [facility] Total proteinOrdered By: Cosmo Jc on 01-05-2025 Protein [Mass/Vol] 6.8 g/dL 5.9-8.4 [facility] White blood cell (WBC) count Ordered By: Hector Jc on 01-05-2025 WBC (Bld) [#/Vol] 6.3 10*3/uL 4.4-11.0 [facility] Protein Electroph, Son 12-30 Albumin [Mass/Vol] 3.5 g/dL Normal 2.9-4.4 [facility] Comment on above: Order Comment: Order Date: 12/28/24Order Info: 0060-1 - PROEL Performed By: #### L 400.0001, L101.9900, M100.2200, L500.2500, L3100.3450, L501.6710 ####[facility] [address] [place], [place], [id number] Albumin/Globulin [Mass ratio] 1.5 {ratio} Normal 0.7-1.7 [facility] Comment on above: Order Comment: Order Date: 12/28/24Order Info: 0060-1 - PROEL Performed By: #### L 400.0001, L101.9900, M100.2200, L500.2500, L3100.3450, L501.6710 ####[facility] [address] [place], [address] ALPHA-1 GLOBUL 0.2 g/dL Normal 0.0-0.4 [facility] Comment on above: Order Comment: Order Date: 12/28/24Order Info: 0060-1 - PROEL Performed By: #### L 400.0001, L101.9900, M100.2200, L500.2500, L3100.3450, L501.6710 ####[facility] [address] [place], [address] ALPHA-2 GLOBUL 0.6 g/dL Normal 0.4-1.0 [facility] Comment on above: Order Comment: Order Date: 12/28/24Order Info: 0060-1 - PROEL Performed By: #### L 400.0001, L101.9900, M100.2200, L500.2500, L3100.3450, L501.6710 ####[facility] [address] [place], [address] BETA GLOBULIN 1.0 g/dL Normal 0.7-1.3 [facility] Comment on above: Order Comment: Order Date: 12/28/24Order Info: 0060-1 - PROEL Performed By: #### L 400.0001, L101.9900, M100.2200, L500.2500, L3100.3450, L501.6710 ####[facility] [address] [place], [address] GAMMA GLOBULIN 0.6 g/dL Normal 0.4-1.8 [facility] Comment on above: Order Comment: Order Date: 12/28/24Order Info: 0060-1 - PROEL Performed By: #### L 400.0001, L101.9900, M100.2200, L500.2500, L3100.3450, L501.6710 ####[facility] [address] [place], [place], [id number] Globulin (S) [Mass/Vol] 2.4 g/dL Normal 2.2-3.9 [facility] Comment on above: Order Comment: Order Date: 12/28/24Order Info: 0060-1 - PROEL Performed By: #### L 400.0001, L101.9900, M100.2200, L500.2500, L3100.3450, L501.6710 ####[facility] [address] [place], [place], [id number] INTERPRETATION Comment Normal . [facility] Comment on above: Order Comment: Order Date: 12/28/24Order Info: 0060-1 - PROEL Result Comment: Prot ein electrophoresis scan will follow via computer, mail, or speeder operator delivery. Performed By: #### L 400.0001, L101.9900, M100.2200, L500.2500, L3100.3450, L501.6710 ####[facility] [address] [place], [place], [id number] M-SPIKE Not Observed Normal Not Observed [facility] Comment on above: Order Comment: Order Date: 12/28/24Order Info: 0060-1 - PROEL Performed By: #### L 400.0001, L101.9900, M100.2200, L500.2500, L3100.3450, L501.6710 ####[facility] [address] [place], [place], [id number] NOTE: Comment Normal . [facility] Comment on above: Order Comment: Order Date: 12/28/24Order Info: 0060-1 - PROEL Result Comment: The SPE pattern appears unremarkable. Evidence of monoclonal protein is not apparent. Performed at: [address] [id number] Activities Director: Wyatt Kevin PhD, Phone: [phone] Performed By: #### L 400.0001, L101.9900, M100.2200, L500.2500, L3100.3450, L501.6710 ####[facility] [address] [place], [address] Protein [Mass/Vol] 5.9 g/dL Low 6.0-8.5 [facility] Comment on above: Order Comment: Order Date: 12/28/24Order Info: 0060-1 - PROEL Performed By: #### L 400.0001, L101.9900, M100.2200, L500.2500, L3100.3450, L501.6710 ####[facility] [address] [place], [address] Hemoglobin A1con 12-29-2024 HbA1c (Bld) [Mass fraction] 5.3 % Normal <=5.6 [facility] Comment on above: Order Comment: Order Date: 11/13/23 Order Info: [id number] - CBC Result Comment: Norm al < 5.7 % Prediabetic 5.7 - 6.4 % Diabetic >or= 6.5 % Please note range changes. Performed By: #### L 500.2500, L100.0500 #### [facility] [address] [place], [address] Urine Cultureon 12-29-2024 [facility] Order Date: 12/28/24 Order Info: [id number] - CUUR Culture exhibits no growth. Normal [facility] Comment on above: Performed By: #### L 400.0001, L101.9900, M100.2200, L500.2500, L3100.3450, L501.6710 #### [facility] [address] [place], [address] Albumin Elph [Mass/Vol]Order ed By: Hector Jc on 12-28-2024 Albumin [Mass/Vol] 3.5 g/dL 2.9-4.4 [facility] Anion gap in Serum or Plasma Ordered By: Hector Jc on 12-28-2024 Anion gap [Moles/Vol] 10 mmol/L 08-27 [facility] BUN/creatinine ratioOrdered By: Hector Jc on 12-28-2024 Urea nitrogen/Creatinine [Mass ratio] 16.3 mg/mg 02-01 [facility] Basic Metabolic Profile (BMP )on 12-28-2024 BUN/CRE 16.3 RATIO Normal 02-01 [facility] Comment on above: Order Comment: Order Date: 12/28/24 Order Info: [id number] - BMP Order Info: [id number] - CRP Performed By: #### L 400.0001, L101.9900, M100.2200, L500.2500, L3100.3450, L501.6710 #### [facility] [address] [place], [address] Calcium [Mass/Vol] 8.9 mg/dL Normal 7.6-11.0 [facility] Comment on above: Order Comment: Order Date: 12/28/24 Order Info: [id number] - BMP Order Info: [id number] - CRP Performed By: #### L 400.0001, L101.9900, M100.2200, L500.2500, L3100.3450, L501.6710 #### [facility] [address] [place], [address] Chloride [Moles/Vol] 107 mmol/L Normal 98-108 [facility] Comment on above: Order Comment: Order Date: 12/28/24 Order Info: [id number] - BMP Order Info: [id number] - CRP Performed By: #### L 400.0001, L101.9900, M100.2200, L500.2500, L3100.3450, L501.6710 #### [facility] [address] [place], [address] CO2 [Moles/Vol] 23.5 mmol/L Normal 21.0-32.0 [facility] Comment on above: Order Comment: Order Date: 12/28/24 Order Info: [id number] - BMP Order Info: [id number] - CRP Performed By: #### L 400.0001, L101.9900, M100.2200, L500.2500, L3100.3450, L501.6710 #### [facility] [address] [place], [address] Creatinine [Mass/Vol] 1.08 mg/dL Normal 0.70-1.20 [facility] Comment on above: Order Comment: Order Date: 12/28/24 Order Info: [id number] - BMP Order Info: [id number] - CRP Performed By: #### L 400.0001, L101.9900, M100.2200, L500.2500, L3100.3450, L501.6710 #### [facility] [address] [place], [address] GAP 10 Normal 5-15 [facility] Comment on above: Order Comment: Order Date: 12/28/24 Order Info: [id number] - BMP Order Info: [id number] - CRP Performed By: #### L 400.0001, L101.9900, M100.2200, L500.2500, L3100.3450, L501.6710 #### [facility] [address] [place], [address] GFR/1.73 sq M.predicted among non-blacks MDRD (S/P/Bld) [Vol rate/Area] 72 mL/min/{1.73_m2} Normal >60 [facility] Comment on above: Order Comment: Order Date: 12/28/24 Order Info: 0667-1 - BMP Order Info: [id number] - CRP Result Comment: mL/m in/1.73m2 CKD-EPI Creatinine Equation (2020) Performed By: #### L 400.0001, L101.9900, M100.2200, L500.2500, L3100.3450, L501.6710 #### [facility] [address] [place], [address] Glucose [Mass/Vol] 89 mg/dL Normal 70-99 [facility] Comment on above: Order Comment: Order Date: 12/28/24 Order Info: 0667-1 - BMP Order Info: [id number] - CRP Performed By: #### L 400.0001, L101.9900, M100.2200, L500.2500, L3100.3450, L501.6710 #### [facility] [address] [place], [address] Potassium [Moles/Vol] 4.1 mmol/L Normal 3.3-5.1 [facility] Comment on above: Order Comment: Order Date: 12/28/24 Order Info: [id number] - BMP Order Info: [id number] - CRP Performed By: #### L 400.0001, L101.9900, M100.2200, L500.2500, L3100.3450, L501.6710 #### [facility] [address] [place], [address] Sodium [Moles/Vol] 140 mmol/L Normal 133-145 [facility] Comment on above: Order Comment: Order Date: 12/28/24 Order Info: [id number] - BMP Order Info: [id number] - CRP Performed By: #### L 400.0001, L101.9900, M100.2200, L500.2500, L3100.3450, L501.6710 #### [facility] [address] [place], [address] Urea nitrogen [Mass/Vol] 18 mg/dL Normal 4-19 [facility] Comment on above: Order Comment: Order Date: 12/28/24 Order Info: [id number] - BMP Order Info: [id number] - CRP Performed By: #### L 400.0001, L101.9900, M100.2200, L500.2500, L3100.3450, L501.6710 #### [facility] [address] [place], [address] Bilirubin Test strip Ql (U)O rdered By: Hector Jc on 12-28-2024 Bilirubin Ql (U) Negative Negative [facility] CRPon 12-28-2024 C-REACTIVE PROT < 3.00 Normal 0.0-3.0 [facility] Comment on above: Order Comment: Order Date: 12/28/24 Order Info: [id number] - BMP Order Info: [id number] - CRP Performed By: #### L 400.0001, L101.9900, M100.2200, L500.2500, L3100.3450, L501.6710 #### [facility] [address] [place], [place], [address] Carbon dioxide, total [Moles /volume] in Central venous bloodOrdered By: Hector Jc on 12-28-2024 CO2 [Moles/Vol] 23.5 mmol/L 21.0-32.0 [facility] Chloride assayOrdered By: Joselo Jc on 12-28-2024 Chloride [Moles/Vol] 107 mmol/L 98-108 [facility] Erythrocyte Sed Rateon 12-28 SED RATE 2 mm/hr Normal 0-20 [facility] Comment on above: Order Comment: Order Date: 12/28/24 Order Info: [id number] - SED Performed By: #### L 400.0001, L101.9900, M100.2200, L500.2500, L3100.3450, L501.6710 #### [facility] [address] [place], [place], [id number] Erythrocyte sedimentation ra teOrdered By: Hector Jc on 12-28-2024 ESR (Bld) [Velocity] 2 mm/h 0-20 [facility] Glomerular filtration rate ( GFR) estimation/1.73 sq m using serum, plasma, or whole bOrdered By: Hector Jc on 12-28-2024 GFR/1.73 sq M.predicted among non-blacks MDRD (S/P/Bld) [Vol rate/Area] 72 mL/min/{1.73_m2} >60 [facility] Comment on above: mL/min/1.73m2 CKD-EP I Creatinine Equation (2020) Hemoglobin A1c percentageOrd ered By: Hector Jc on 12-28-2024 HbA1c (Bld) [Mass fraction] 5.3 % <5.7 [facility] Comment on above: Normal < 5.7 % Predi abetic 5.7 - 6.4 % Diabetic >or= 6.5 % Please note range changes. Ketones Test strip Ql (U)Ord ered By: Hector Jc on 12-28-2024 Ketones Ql (U) Negative Negative [facility] Microscopic analysis of urin e for red blood cells (RBC)Ordered By: Hector Jc on 12-28-2024 Microscopic analysis of urine for red blood cells (RBC) 0 SEEN /hpf 0-5 [facility] Mucus LM Ql (Urine sed)Order ed By: Hector Jc on 12-28-2024 Mucus Ql (Urine sed) 0 SEEN /hpf [facility] Nitrite Test strip Ql (U)Ord ered By: Hector Jc on 12-28-2024 Nitrite Ql (U) Negative Negative [facility] No Panel InformationOrdered By: Hector Jc on 12-28-2024 Addendum Document Comment . [facility] Comment on above: The SPE pattern appe ars unremarkable. Evidence ofmonoclonal protein is not apparent.Performed at: [place] [id number] Director: Wyatt Kevin PhD, Phone: [phone] Potassium measurement (mass/ volume)Ordered By: Hecotr Jc on 12-28-2024 Potassium (Unsp spec) [Mass/Vol] 4.1 mmol/L 3.3-5.1 [facility] Protein Fractions Elph [Inte rp]Ordered By: Hector Jc on 12-28-2024 Protein Fractions [Interp] Comment . [facility] Comment on above: Protein electrophore sis scan will follow via computer,mail, or speeder operator delivery. Protein Test strip Ql (U)Ord ered By: Hector Jc on 12-28-2024 Protein Ql (U) 30 mg/dl High Negative [facility] Serum albumin to globulin ra alcon by protein electrophoresisOrdered By: Hector Jc on 12-28-2024 Albumin/Globulin Elph [Mass ratio] 1.5 0.7-1.7 [facility] Serum creatinine measurement (mass/volume)Ordered By: Hector Jc on 12-28-2024 Creatinine [Mass/Vol] 1.08 mg/dL 0.70-1.20 [facility] Serum globulin measurement ( mass/volume)Ordered By: Hector Jc on 12-28-2024 Globulin (S) [Mass/Vol] 2.4 g/dL 2.2-3.9 [facility] Serum glucose measurement (m ass/volume)Ordered By: Hector Jc on 12-28-2024 Glucose [Mass/Vol] 89 mg/dL 70-99 [facility] Serum or plasma C reactive p rotein measurement (mass/volume)Ordered By: Hector Jc on 12-28-2024 CRP [Mass/Vol] mg/L 0.0-3.0 [facility] Serum or plasma beta globuli n measurement by electrophoresis (mass/volume)Ordered By: Hector Jc on 12-28-2024 Beta globulin Elph [Mass/Vol] 1.0 g/dL 0.7-1.3 [facility] Serum or plasma calcium jon urement (mass/volume)Ordered By: Hector Jc on 12-28-2024 Calcium [Mass/Vol] 8.9 mg/dL 7.6-11.0 [facility] Serum or plasma protein jon urement (mass/volume)Ordered By: Hector Jc on 12-28-2024 Protein [Mass/Vol] 5.9 g/dL Low 6.0-8.5 [facility] Serum or plasma protein mono clonal measurement by electrophoresis (mass/volume)Ordered By: Hector Jc on 12-28-2024 Protein.monoclonal Elph [Mass/Vol] Not Observed g/dL Not Observed [facility] Serum or plasma urea nitroge n measurement (mass/volume)Ordered By: Hector Jc on 12-28-2024 Urea nitrogen [Mass/Vol] 18 mg/dL 4-19 [facility] Sodium levelOrdered By: Rajeev Jc on 12-28-2024 Sodium [Moles/Vol] 140 mmol/L 133-145 [facility] Squamous epithelial cells de tection in urine sediment by light microscopyOrdered By: Hector Jc on 12-28-2024 Epithelial cells.squamous LM Ql (Urine sed) 0 SEEN /hpf 0-5 [facility] Urinalysis, Completeon 12-28 BACTERIA 0 SEEN Normal None Seen [facility] Comment on above: Order Comment: Order Date: 12/28/24 Order Info: [id number] POWDERED SUGAR PULVERIZER OPERATOR TO SPECIFY Performed By: #### L 400.0001, L101.9900, M100.2200, L500.2500, L3100.3450, L501.6710 #### [facility] Laboratory [address] [place], [address] EPI,SQUAMOUS 0 SEEN Normal 0-5 [facility] Comment on above: Order Comment: Order Date: 12/28/24 Order Info: [id number] POWDERED SUGAR PULVERIZER OPERATOR TO SPECIFY Performed By: #### L 400.0001, L101.9900, M100.2200, L500.2500, L3100.3450, L501.6710 #### [facility] [address] [place], [address] Mucus Ql (Urine sed) 0 SEEN Normal [facility] Comment on above: Order Comment: Order Date: 12/28/24 Order Info: [id number] [facility] POWDERED SUGAR PULVERIZER OPERATOR TO SPECIFY Performed By: #### L 400.0001, L101.9900, M100.2200, L500.2500, L3100.3450, L501.6710 #### [facility] [address] [place], [address] RBC 0 SEEN Normal 0-5 [facility] Comment on above: Order Comment: Order Date: 12/28/24 Order Info: [id number] POWDERED SUGAR PULVERIZER OPERATOR TO SPECIFY Performed By: #### L 400.0001, L101.9900, M100.2200, L500.2500, L3100.3450, L501.6710 #### [facility] [address] [place], [address] WBC 0 SEEN Normal 0-5 [facility] Comment on above: Order Comment: Order Date: 12/28/24 Order Info: [id number] - [facility] POWDERED SUGAR PULVERIZER OPERATOR TO SPECIFY Performed By: #### L 400.0001, L101.9900, M100.2200, L500.2500, L3100.3450, L501.6710 #### [facility] [place], [address] Urine clarityOrdered By: Cosmo Jc on 12-28-2024 Clarity (U) Clear Clear [facility] Urine color determinationOrd ered By: Hector Jc on 12-28-2024 Color (U) Yellow Yellow [facility] Urine cultureOrdered By: Cosmo Jc on 12-28-2024 Bacteria identified Cx Nom (U) Culture exhibits no growth. [facility] Urine glucose detectionOrder ed By: Hector Jc on 12-28-2024 Glucose Ql (U) 250 mg/dl High Normal [facility] Urine leukocyte esterase det ection by dipstickOrdered By: Hector Jc on 12-28-2024 Leukocyte esterase Test strip Ql (U) Negative Negative [facility] Urine pHOrdered By: Ulises Jc on 12-28-2024 pH (U) 6.5 [pH] 5.0 - 8.0 [facility] Urine sediment bacteria coun t by microscopy (number/high power field)Ordered By: Hector Jc on 12-28-2024 Bacteria LM.HPF (Urine sed) [#/Area] 0 /[HPF] None Seen [facility] Urine specific gravity measu rementOrdered By: Hector Jc on 12-28-2024 Specific gravity (U) [Rel density] 1.015 1.002-1.03 0 [facility] Urine urobilinogen measureme ntOrdered By: Hector Jc on 12-28-2024 Urobilinogen Ql (U) Normal mg/dl Normal [facility] White blood cell countOrdere d By: Hector Jc on 12-28-2024 White blood cell count 0 SEEN /hpf 0-5 [facility] ANTINUCLEAR ANTIBODIES DIREC Ton 12-07-2024 MARE,DIRECT Negative Normal Negative [facility] Comment on above: Result Comment: Perf ormed at: [facility] [address] [id number] Activities Director: Wyatt Kevin PhD, Phone: [phone] Performed By: #### L 500.2500, L100.0500 #### [facility] Laboratory [address] [place], [place], [id number] Aldolaseon 12-07-2024 ALDOLASE 5.7 U/L Normal 3.3-10.3 [facility] Comment on above: Result Comment: Perf ormed at: [facility] [address] [id number] Activities Director: Wyatt Kevin PhD, Phone: [phone] Performed By: #### L 500.2500, L100.0500 #### [facility] [address] [place], [place], [id number] Anti-dsDNA Abon 12-07-2024 ANTI-DNA (DS)AB <1 Normal 0-9 [facility] Comment on above: Result Comment: Nega tive <5 Equivocal 5 - 9 Positive >9 Performed By: #### L 500.2500, L100.0500 #### [facility] Laboratory [address] [place], [place], [id number] Absolute lymphocyte countOrd ered By: Yohannes Keane on 12-04-2024 Lymphocytes Auto (Unsp spec) [#/Vol] 1.32 10*3/uL 0.83-4.51 [facility] Absolute neutrophil countOrd ered By: Yohannes Keane on 12-04-2024 Neutrophils (Bld) [#/Vol] 8.3 10*3/uL High 2.0-7.7 [facility] Aldolase ser/plasOrdered By: Yohannes Keane on 12-04-2024 Aldolase [Catalytic activity/Vol] 5.7 mU/mL 3.3-10.3 [facility] Comment on above: Performed at: [facility] [address], [place] [id number] Director: Wyatt Kevin PhD, Phone: [phone] Anion gap in Serum or Plasma Ordered By: Yohannes Lakhwinder on 12-04-2024 Anion gap [Moles/Vol] 14 mmol/L 5-15 [facility] Automated lymphocyte count a s percentage of total leukocytesOrdered By: Yohannes Connollyjuanito on 12-04-2024 Lymphocytes/100 WBC Auto (Unsp spec) 12.3 % Low 19-41 [facility] BUN/creatinine ratioOrdered By: [place] Lakhwinder on 12-04-2024 Urea nitrogen/Creatinine [Mass ratio] 15.1 mg/mg 10-20 [facility] Basophil percentageOrdered B y: Yohannes Connollyjuanito on 12-04-2024 Basophils/100 WBC (Bld) 0.5 % 0-1 [facility] Bilirubin Test strip Ql (U)O rdered By: Yohannes Lakhwinder on 12-04-2024 Bilirubin Ql (U) Negative Negative [facility] Bilirubin, totalOrdered By: Yohannes Lakhwinder on 12-04-2024 Bilirubin [Mass/Vol] 1.36 mg/dL High 0.00-1.30 [facility] CBC W/Diff, Automatedon 11-14 Absolute Lymph 1.32 X10 3/uL Normal 0.83-4.51 [facility] Comment on above: Performed By: #### L 3100.7000, L100.0100, L3100.5500, L501.3620, L400.2010, L500.4050, L3100.5475 ####[facility] [address] [place], [address] Absolute Neut 8.3 X10 3/uL High 2.0-7.7 [facility] Comment on above: Performed By: #### L 3100.7000, L100.0100, L3100.5500, L501.3620, L400.2011, L500.4050, L3100.5475 ####[facility] [address] [place], [address] Basophils/100 WBC (Bld) 0.5 % Normal 0-1 [facility] Comment on above: Performed By: #### L 3100.7000, L100.0100, L3100.5500, L501.3620, L400.2011, L500.4050, L3100.5475 ####[facility] [address] [place], [address] Eosinophils/100 WBC (Bld) 0.7 % Normal 0-5 [facility] Comment on above: Performed By: #### L 3100.7000, L100.0100, L3100.5500, L501.3620, L400.2010, L500.4050, L3100.5475 ####[facility] [address] [place], [address] Erythrocyte distribution width (RBC) [Ratio] 12.1 % Normal 11.6-14.6 [facility] Comment on above: Performed By: #### L 3100.7000, L100.0100, L3100.5500, L501.3620, L400.2010, L500.4050, L3100.5475 ####[facility] [address] [place], [address] Hematocrit (Bld) [Volume fraction] 47.2 % Normal 40-54 [facility] Comment on above: Performed By: #### L 3100.7000, L100.0100, L3100.5500, L501.3620, L400.2010, L500.4050, L3100.5475 ####[facility] [address] [place], [address] Hemoglobin (Bld) [Mass/Vol] 15.8 g/dL Normal 13.0-16.5 [facility] Comment on above: Performed By: #### L 3100.7000, L100.0100, L3100.5500, L501.3620, L400.2011, L500.4050, L3100.5475 ####[facility] [address] [place], [address] IG% 0.700 Normal 0.0-0.9 [facility] Comment on above: Result Comment: IG% - Immature Granulocytes (promyelocytes, myelocytes and metamyelocytes) > 1% indicates that a LEFT SHIFT is Present. Performed By: #### L 3100.7000, L100.0100, L3100.5500, L501.3620, L400.2010, L500.4050, L3100.5475 ####[facility] [address] [place], [address] Lymphocytes/100 WBC (Bld) 12.3 % Low 19-41 [facility] Comment on above: Performed By: #### L 3100.7000, L100.0100, L3100.5500, L501.3620, L400.2010, L500.4050, L3100.5475 ####[facility] [address] [place], [address] MCH (RBC) [Entitic mass] 30.6 pg Normal 27.0-32.0 [facility] Comment on above: Performed By: #### L 3100.7000, L100.0100, L3100.5500, L501.3620, L400.2010, L500.4050, L3100.5475 ####[facility] [address] [place], [address] MCHC (RBC) [Mass/Vol] 33.5 g/dL Normal 32-36 [facility] Comment on above: Performed By: #### L 3100.7000, L100.0100, L3100.5500, L501.3620, L400.2010, L500.4050, L3100.5475 ####[facility] [address] [place], [address] MCV (RBC) [Entitic vol] 91.3 fL Normal 80-94 [facility] Comment on above: Performed By: #### L 3100.7000, L100.0100, L3100.5500, L501.3620, L400.2011, L500.4050, L3100.5475 ####[facility] [address] [place], [address] Monocytes/100 WBC (Bld) 8.9 % Normal 0-10 [facility] Comment on above: Performed By: #### L 3100.7000, L100.0100, L3100.5500, L501.3620, L400.2011, L500.4050, L3100.5475 ####[facility] [address] [place], [address] Neutrophils/100 WBC (Bld) 76.9 % High 47-70 [facility] Comment on above: Performed By: #### L 3100.7000, L100.0100, L3100.5500, L501.3620, L400.2010, L500.4050, L3100.5475 ####[facility] [address] [place], [address] Nucleated RBC (Bld) [#/Vol] 0 10*3/uL Normal 0-5 [facility] Comment on above: Performed By: #### L 3100.7000, L100.0100, L3100.5500, L501.3620, L400.2010, L500.4050, L3100.5475 ####[facility] [address] [place], [address] Platelet mean volume (Bld) [Entitic vol] 10.3 fL Normal 6.2-12.0 [facility] Comment on above: Performed By: #### L 3100.7000, L100.0100, L3100.5500, L501.3620, L400.2011, L500.4050, L3100.5475 ####[facility] [address] [place], [address] Platelets (Bld) [#/Vol] 278 10*3/uL Normal 150-450 [facility] Comment on above: Performed By: #### L 3100.7000, L100.0100, L3100.5500, L501.3620, L400.2011, L500.4050, L3100.5475 ####[facility] [address] [place], [address] RBC (Bld) [#/Vol] 5.17 10*6/uL Normal 4.6-6.2 [facility] Comment on above: Performed By: #### L 3100.7000, L100.0100, L3100.5500, L501.3620, L400.2010, L500.4050, L3100.5475 ####[facility] [address] [place], [address] RDW SD 40.3 fl Normal 35.1-43.9 [facility] Comment on above: Performed By: #### L 3100.7000, L100.0100, L3100.5500, L501.3620, L400.2010, L500.4050, L3100.5475 ####[facility] [address] [place], [address] WBC (Bld) [#/Vol] 10.8 10*3/uL Normal 4.4-11.0 [facility] Comment on above: Performed By: #### L 3100.7000, L100.0100, L3100.5500, L501.3620, L400.2010, L500.4050, L3100.5475 ####[facility] [address] [place], [address] CPK Total, Creatine Kinaseon 12-04-2024 CPK TOTAL 68 U/L Normal 24-195 [facility] Comment on above: Performed By: #### L 3100.7000, L100.0100, L3100.5500, L501.3620, L400.2010, L500.4050, L3100.5475 ####[facility] [address] [place], [address] Carbon dioxide, total [Moles /volume] in Central venous bloodOrdered By: Yohannes Keane on 12-04-2024 CO2 [Moles/Vol] 22.1 mmol/L 21.0-32.0 [facility] Chloride assayOrdered By: Hanny Keane on 12-04-2024 Chloride [Moles/Vol] 102 mmol/L 98-108 [facility] Comprehensive Metabolic Prof ilon 12-04-2024 Albumin [Mass/Vol] 4.4 g/dL Normal 3.4-4.8 [facility] Comment on above: Performed By: #### L 3100.7000, L100.0100, L3100.5500, L501.3620, L400.2010, L500.4050, L3100.5475 ####[facility] [address] [place], [address] Albumin/Globulin [Mass ratio] 1.7 {ratio} Normal 0.9-2.4 [facility] Comment on above: Performed By: #### L 3100.7000, L100.0100, L3100.5500, L501.3620, L400.2010, L500.4050, L3100.5475 ####[facility] [address] [place], [address] ALK PHOS 66 U/L Normal 40-129 [facility] Comment on above: Performed By: #### L 3100.7000, L100.0100, L3100.5500, L501.3620, L400.2010, L500.4050, L3100.5475 ####[facility] [address] [place], [address] ALT [Catalytic activity/Vol] 21 U/L Normal <=46 [facility] Comment on above: Performed By: #### L 3100.7000, L100.0100, L3100.5500, L501.3620, L400.2010, L500.4050, L3100.5475 ####[facility] [address] [place], [address] AST [Catalytic activity/Vol] 19 U/L Normal <=37 [facility] Comment on above: Performed By: #### L 3100.7000, L100.0100, L3100.5500, L501.3620, L400.2010, L500.4050, L3100.5475 ####[facility] [address] [place], [address] Bilirubin [Mass/Vol] 1.36 mg/dL High 0.00-1.30 [facility] Comment on above: Performed By: #### L 3100.7000, L100.0100, L3100.5500, L501.3620, L400.2010, L500.4050, L3100.5475 ####[facility] [address] [place], [address] BUN/CRE 15.1 RATIO Normal 10-20 [facility] Comment on above: Performed By: #### L 3100.7000, L100.0100, L3100.5500, L501.3620, L400.2010, L500.4050, L3100.5475 ####[facility] [address] [place], [address] Calcium [Mass/Vol] 10.0 mg/dL Normal 7.6-11.0 [facility] Comment on above: Performed By: #### L 3100.7000, L100.0100, L3100.5500, L501.3620, L400.2010, L500.4050, L3100.5475 ####[facility] [address] [place], [address] Chloride [Moles/Vol] 102 mmol/L Normal 98-108 [facility] Comment on above: Performed By: #### L 3100.7000, L100.0100, L3100.5500, L501.3620, L400.2010, L500.4050, L3100.5475 ####[facility] [address] [place], [address] CO2 [Moles/Vol] 22.1 mmol/L Normal 21.0-32.0 [facility] Comment on above: Performed By: #### L 3100.7000, L100.0100, L3100.5500, L501.3620, L400.2010, L500.4050, L3100.5475 ####[facility] [address] [place], [address] Creatinine [Mass/Vol] 1.36 mg/dL High 0.70-1.20 [facility] Comment on above: Performed By: #### L 3100.7000, L100.0100, L3100.5500, L501.3620, L400.2010, L500.4050, L3100.5475 ####[facility] [address] [place], [address] GAP 14 Normal 5-15 [facility] Comment on above: Performed By: #### L 3100.7000, L100.0100, L3100.5500, L501.3620, L400.2010, L500.4050, L3100.5475 ####[facility] [address] [place], [address] GFR/1.73 sq M.predicted among non-blacks MDRD (S/P/Bld) [Vol rate/Area] 55 mL/min/{1.73_m2} Low >60 [facility] Comment on above: Result Comment: mL/m in/1.73m2 CKD-EPI Creatinine Equation (2020) Performed By: #### L 3100.7000, L100.0100, L3100.5500, L501.3620, L400.2010, L500.4050, L3100.5475 ####[facility] [address] [place], [address] Globulin (S) [Mass/Vol] 2.7 g/dL Normal 2.2-4.2 [facility] Comment on above: Performed By: #### L 3100.7000, L100.0100, L3100.5500, L501.3620, L400.2010, L500.4050, L3100.5475 ####[facility] [address] [place], [address] Glucose [Mass/Vol] 95 mg/dL Normal 70-99 [facility] Comment on above: Performed By: #### L 3100.7000, L100.0100, L3100.5500, L501.3620, L400.2010, L500.4050, L3100.5475 ####[facility] [address] [place], [address] Potassium [Moles/Vol] 4.3 mmol/L Normal 3.3-5.1 [facility] Comment on above: Performed By: #### L 3100.7000, L100.0100, L3100.5500, L501.3620, L400.2010, L500.4050, L3100.5475 ####[facility] [address] [place], [address] Sodium [Moles/Vol] 138 mmol/L Normal 133-145 [facility] Comment on above: Performed By: #### L 3100.7000, L100.0100, L3100.5500, L501.3620, L400.2010, L500.4050, L3100.5475 ####[facility] [address] [place], [address] T PROT 7.1 g/dL Normal 5.9-8.4 [facility] Comment on above: Performed By: #### L 3100.7000, L100.0100, L3100.5500, L501.3620, L400.2011, L500.4050, L3100.5475 ####[facility] [address] [place], [place], [address] Urea nitrogen [Mass/Vol] 21 mg/dL High 4-19 [facility] Comment on above: Performed By: #### L 3100.7000, L100.0100, L3100.5500, L501.3620, L400.2011, L500.4050, L3100.5475 ####[facility] [address] [place], [place], [address] Eosinophil percentageOrdered By: Yohannes Keane on 12-04-2024 Eosinophils/100 WBC (Bld) 0.7 % 0-5 [facility] Erythrocyte distribution wid th ratioOrdered By: Yohannes Keane on 12-04-2024 Erythrocyte distribution width (RBC) [Ratio] 12.1 % 11.6-14.6 [facility] Erythrocyte distribution wid th standard deviationOrdered By: [place] Lakhwinder on 12-04-2024 Erythrocyte distribution width (RBC) [Ratio] 40.3 fl 35.1-43.9 [facility] Glomerular filtration rate ( GFR) estimation/1.73 sq m using serum, plasma, or whole bOrdered By: Yohannes Keane on 12-04-2024 GFR/1.73 sq M.predicted among non-blacks MDRD (S/P/Bld) [Vol rate/Area] 55 mL/min/{1.73_m2} Low >60 [facility] Comment on above: mL/min/1.73m2 CKD-EP I Creatinine Equation (2020) Hematocrit Auto (Bld) [Volum e fraction]Ordered By: Yohannes Keane on 12-04-2024 Hematocrit (Bld) [Volume fraction] 47.2 % 40-54 [facility] Hemoglobin measurementOrdere d By: Yohannes Keane on 12-04-2024 Hemoglobin (Bld) [Mass/Vol] 15.8 g/dL 13.0-16.5 [facility] Immature granulocytes/100 WB C Auto (Bld)Ordered By: Yohannes Keane on 12-04-2024 Immature granulocytes/100 WBC (Bld) 0.700 % 0.0-0.9 [facility] Comment on above: IG% - Immature Granu locytes (promyelocytes, myelocytes and metamyelocytes) > 1% indicates that a LEFT SHIFT is Present. Ketones Test strip Ql (U)Ord ered By: Yohannes Keane on 12-04-2024 Ketones Ql (U) 15 mg/dl High Negative [facility] Laboratory - Chemistry and C hemistry - challengeOrdered By: Yohannes Keane on 12-04-2024 AST [Catalytic activity/Vol] 19 U/L <38 [facility] MCV (mean corpuscular volume ) determinationOrdered By: Yohannes Keane on 12-04-2024 MCV (RBC) [Entitic vol] 91.3 fL 80-94 [facility] Mean corpuscular hemoglobin (MCH) determinationOrdered By: Yohannes Keane on 12-04-2024 MCH (RBC) [Entitic mass] 30.6 pg 27.0-32.0 [facility] Mean corpuscular hemoglobin concentration (MCHC) determinationOrdered By: Yohannes Keane on 12-04-2024 MCHC (RBC) [Mass/Vol] 33.5 g/dL 32-36 [facility] Mean platelet volume determi nationOrdered By: Yohannes Keane on 12-04-2024 Platelet mean volume (Bld) [Entitic vol] 10.3 fL 6.2-12.0 [facility] Monocyte percentageOrdered B y: Yohannes Keane on 12-04-2024 Monocytes/100 WBC (Bld) 8.9 % 0-10 [facility] Neutrophil percentageOrdered By: Yohannes Keane on 12-04-2024 Neutrophils/100 WBC (Bld) 76.9 % High 47-70 [facility] Nitrite Test strip Ql (U)Ord ered By: Yohannes Keane on 12-04-2024 Nitrite Ql (U) Negative Negative [facility] Nucleated red blood cell per centageOrdered By: Yohannes Keane on 12-04-2024 Nucleated RBC/100 WBC (Bld) [Ratio] 0 % 0-5 [facility] [facility] Platelet countOrdered By: Hanny Keane on 12-04-2024 Platelets (Bld) [#/Vol] 278 10*3/uL 150-450 [facility] Potassium measurement (mass/ volume)Ordered By: Yohannes Keane on 12-04-2024 Potassium (Unsp spec) [Mass/Vol] 4.3 mmol/L 3.3-5.1 [facility] Protein Test strip Ql (U)Ord ered By: Yohannes Keane on 12-04-2024 Protein Ql (U) 30 mg/dl High Negative [facility] RBC Auto (Bld) [#/Vol]Ordere d By: Yohannes Keane on 12-04-2024 RBC (Bld) [#/Vol] 5.17 10*6/uL 4.6-6.2 [facility] Serum DNA double strand anti body assay (units/volume)Ordered By: Yohannes Keane on 12-04-2024 DNA double strand Ab Qn (S) [IU]/mL 0-9 [facility] Comment on above: Negative <5 Equivoca l 5 - 9 Positive >9 Serum creatinine measurement (mass/volume)Ordered By: Yohannes Keane on 12-04-2024 Creatinine [Mass/Vol] 1.36 mg/dL High 0.70-1.20 [facility] Serum globulin measurementOr dered By: Yohannes Keane on 12-04-2024 Globulin (S) [Mass/Vol] 2.7 g/dL 2.2-4.2 [facility] Serum glucose measurement (m ass/volume)Ordered By: Yohannes Keane on 12-04-2024 Glucose [Mass/Vol] 95 mg/dL 70-99 [facility] Serum or plasma alanine morin otransferase (ALT) measurementOrdered By: Yohannes Keane on 12-04-2024 ALT [Catalytic activity/Vol] 21 U/L <47 [facility] Serum or plasma albumin jon urement (mass/volume)Ordered By: Yohannes Keane on 12-04-2024 Albumin [Mass/Vol] 4.4 g/dL 3.4-4.8 [facility] Serum or plasma albumin/glob ulin mass ratioOrdered By: Yohannes Keane on 12-04-2024 Albumin/Globulin [Mass ratio] 1.7 {ratio} 0.9-2.4 [facility] Serum or plasma alkaline sebastian sphatase measurementOrdered By: Yohannes Lakhwinder on 12-04-2024 ALP [Catalytic activity/Vol] 66 U/L 40-129 [facility] Serum or plasma calcium jon urement (mass/volume)Ordered By: Yohannes Keane on 12-04-2024 Calcium [Mass/Vol] 10.0 mg/dL 7.6-11.0 [facility] Serum or plasma creatine kin ase activityOrdered By: Yohannes Keane on 12-04-2024 CK [Catalytic activity/Vol] 68 U/L 24-195 [facility] Serum or plasma urea nitroge n measurement (mass/volume)Ordered By: Yohannes Keane on 12-04-2024 Urea nitrogen [Mass/Vol] 21 mg/dL High 4-19 [facility] Sodium levelOrdered By: Lisandro Keane on 12-04-2024 Sodium [Moles/Vol] 138 mmol/L 133-145 [facility] Total proteinOrdered By: Reese Keane on 12-04-2024 Protein [Mass/Vol] 7.1 g/dL 5.9-8.4 [facility] Urinalysis, Routine (Dipstic k)on 12-04-2024 BILIRUBIN URINE Negative Normal Negative [facility] Comment on above: Order Comment: Urine , Random Performed By: #### L 3100.7000, L100.0100, L3100.5500, L501.3620, L400.2010, L500.4050, L3100.5475 ####[facility] [address] [place], [address] Clarity (U) Sl. Cloudy Normal Clear [facility] Comment on above: Order Comment: Urine , Random Performed By: #### L 3100.7000, L100.0100, L3100.5500, L501.3620, L400.2010, L500.4050, L3100.5475 ####[facility] [address] [place], [address] Color (U) Yellow Normal Yellow [facility] Comment on above: Order Comment: Urine , Random Performed By: #### L 3100.7000, L100.0100, L3100.5500, L501.3620, L400.2011, L500.4050, L3100.5475 ####[facility] [address] [place], [address] GLUCOSE, UR 100 mg/dl Abnormal Normal [facility] Comment on above: Order Comment: Urine , Random Performed By: #### L 3100.7000, L100.0100, L3100.5500, L501.3620, L400.2011, L500.4050, L3100.5475 ####[facility] [address] [place], [address] KETONE UR 15 mg/dl Abnormal Negative [facility] Comment on above: Order Comment: Urine , Random Performed By: #### L 3100.7000, L100.0100, L3100.5500, L501.3620, L400.2010, L500.4050, L3100.5475 ####[facility] [address] [place], [address] LEUK ESTERASE Negative Normal Negative [facility] Comment on above: Order Comment: Urine , Random Performed By: #### L 3100.7000, L100.0100, L3100.5500, L501.3620, L400.2011, L500.4050, L3100.5475 ####[facility] [address] [place], [address] Nitrite Ql (U) Negative Normal Negative [facility] Comment on above: Order Comment: Urine , Random Performed By: #### L 3100.7000, L100.0100, L3100.5500, L501.3620, L400.2011, L500.4050, L3100.5475 ####[facility] [address] [place], [address] OCCULT BLOOD-UR 50 /ul Abnormal Negative [facility] Comment on above: Order Comment: Urine , Random Performed By: #### L 3100.7000, L100.0100, L3100.5500, L501.3620, L400.2011, L500.4050, L3100.5475 ####[facility] [address] [place], [address] pH UR 5.0 Normal 5.0 - 8.0 [facility] Comment on above: Order Comment: Urine , Random Performed By: #### L 3100.7000, L100.0100, L3100.5500, L501.3620, L400.2011, L500.4050, L3100.5475 ####[facility] [address] [place], [address] PROT DIPSTX 30 mg/dl Abnormal Negative [facility] Comment on above: Order Comment: Urine , Random Performed By: #### L 3100.7000, L100.0100, L3100.5500, L501.3620, L400.2010, L500.4050, L3100.5475 ####[facility] [address] [place], [address] SP.GR. DIPSTX 1.025 Normal 1.002-1.03 0 [facility] Comment on above: Order Comment: Urine , Random Performed By: #### L 3100.7000, L100.0100, L3100.5500, L501.3620, L400.2010, L500.4050, L3100.5475 ####[facility] [address] [place], [address] UROBILI Normal Normal Normal [facility] Comment on above: Order Comment: Urine , Random Performed By: #### L 3100.7000, L100.0100, L3100.5500, L501.3620, L400.2011, L500.4050, L3100.5475 ####[facility] [address] [place], [address] Urine clarityOrdered By: Reese Keane on 12-04-2024 Clarity (U) Sl. Cloudy Clear [facility] Urine color determinationOrd ered By: Yohannes Keane on 12-04-2024 Color (U) Yellow Yellow [facility] Urine glucose detectionOrder ed By: Yohannes Keane on 12-04-2024 Glucose Ql (U) 100 mg/dl High Normal [facility] Urine leukocyte esterase det ection by dipstickOrdered By: Yohannes Keane on 12-04-2024 Leukocyte esterase Test strip Ql (U) Negative Negative [facility] Urine pHOrdered By: Yohannes joyner on 12-04-2024 pH (U) 5.0 [pH] 5.0 - 8.0 [facility] Urine specific gravity measu rementOrdered By: Yohannes Kenae on 12-04-2024 Specific gravity (U) [Rel density] 1.025 1.002-1.03 0 [facility] Urine urobilinogen measureme ntOrdered By: Yohannes Keane on 12-04-2024 Urobilinogen Ql (U) Normal mg/dl Normal [facility] White blood cell (WBC) count Ordered By: Yohannes Keane on 12-04-2024 WBC (Bld) [#/Vol] 10.8 10*3/uL 4.4-11.0 [facility] Absolute lymphocyte countOrd ered By: Pedro Rivera on 11-27-2024 Lymphocytes Auto (Unsp spec) [#/Vol] 2.06 10*3/uL 0.83-4.51 [facility] Absolute neutrophil countOrd ered By: Pedro Rivera on 11-27-2024 Neutrophils (Bld) [#/Vol] 5.0 10*3/uL 2.0-7.7 [facility] Anion gap in Serum or Plasma Ordered By: Pedro Rivera on 11-27-2024 Anion gap [Moles/Vol] 14 mmol/L 08-27 [facility] Automated lymphocyte count a s percentage of total leukocytesOrdered By: Pedro Rivera on 11-27-2024 Lymphocytes/100 WBC Auto (Unsp spec) 24.8 % -41 [facility] BUN/creatinine ratioOrdered By: Pedro Rivera on 11-27-2024 Urea nitrogen/Creatinine [Mass ratio] 15.0 mg/mg 10-20 [facility] Basic Metabolic Profile (BMP )on 11-27-2024 BUN/CRE 15.0 RATIO Normal - [facility] Comment on above: Performed By: #### L 500.2500, L100.0100 ####[facility] [address] [place], [address] Calcium [Mass/Vol] 9.0 mg/dL Normal 7.6-11.0 [facility] Comment on above: Performed By: #### L 500.2500, L100.0100 ####[facility] [address] [place], [address] Chloride [Moles/Vol] 102 mmol/L Normal 98-108 [facility] Comment on above: Performed By: #### L 500.2500, L100.0100 ####[facility] [address] [place], [address] CO2 [Moles/Vol] 21.6 mmol/L Normal 21.0-32.0 [facility] Comment on above: Performed By: #### L 500.2500, L100.0100 ####[facility] [address] [place], [address] Creatinine [Mass/Vol] 1.22 mg/dL High 0.70-1.20 [facility] Comment on above: Performed By: #### L 500.2500, L100.0100 ####[facility] [address] [place], [address] ECRCL 63.31 ml/min Normal 50-250 [facility] Comment on above: Performed By: #### L 500.2500, L100.0100 ####[facility] [address] [place], [address] GAP 14 Normal -15 [facility] Comment on above: Performed By: #### L 500.2500, L100.0100 ####[facility] [address] [place], [address] GFR/1.73 sq M.predicted among non-blacks MDRD (S/P/Bld) [Vol rate/Area] 63 mL/min/{1.73_m2} Normal >60 [facility] Comment on above: Result Comment: mL/m in/1.73m2 CKD-EPI Creatinine Equation (2020) Performed By: #### L 500.2500, L100.0100 ####[facility] [address] [place], [address] Glucose [Mass/Vol] 94 mg/dL Normal 70-99 [facility] Comment on above: Performed By: #### L 500.2500, L100.0100 ####[facility] [address] [place], [address] Potassium [Moles/Vol] 4.0 mmol/L Normal 3.3-5.1 [facility] Comment on above: Performed By: #### L 500.2500, L100.0100 ####[facility] [address] [place], [address] Sodium [Moles/Vol] 137 mmol/L Normal 133-145 [facility] Comment on above: Performed By: #### L 500.2500, L100.0100 ####[facility] [address] [place], [address] Urea nitrogen [Mass/Vol] 18 mg/dL Normal 4-19 [facility] Comment on above: Performed By: #### L 500.2500, L100.0100 ####[facility] [address] [place], [address] Basophil percentageOrdered B y: Pedro Rivera on 11-27-2024 Basophils/100 WBC (Bld) 0.4 % 0-1 [facility] Brain/Head without Contrasto n 11-27-2024 Brain/Head without Contrast [facility] Imaging Services [address] [place] [address] Brain/Head without Contrast MR#: [id number] Acct: [id number] Name: MAIRA GARCIA Rep #: [id number] : 1950 M 74 From: Miguel teague MD PCP: Dr. Hector Jc MD Status: REG ER Study: Brain/Head without Contrast Date of Exam: 11/13 09/06 Exam# [id number] Ordering Dr: Pedro Rivera MD PROCEDURE: BRAIN/HEAD WITHOUT CONTRAST 11/27/2024 REASON FOR EXAM: BILATERAL FACIAL NUMBNESS. TECHNIQUE: BRAIN/HEAD WITHOUT CONTRAST Coronal and Sagittal reconstruction series were provided. One or more dose reduction techniques were used (e.g., Automated exposure control, adjustment of the mA and/or kV according to patient size, use of iterative reconstruction technique. RADIATION DOSE SUMMARY: CTDlvol: 44.99 mGy DLP: 846.73 mGycm COMPARISON: None FINDINGS: Brain: Within normal limits for age CSF Spaces: Mild generalized cerebral atrophy Sinuses/Mastoids: Clear at visualized levels Bones: Unremarkable CT/Brain/Head without Contrast IMPRESSION: Mild cerebral atrophy. No acute abnormality is seen. Reading Location: [place] [address] CC: Dr. Hector Jc MD; Dr. 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, [address] Absolute Neut 5.0 X10 3/uL Normal 2.0-7.7 [facility] Comment on above: Performed By: #### L 500.2500, L100.0100 ####[facility] [address] [place], [address] Basophils/100 WBC (Bld) 0.4 % Normal 0-1 [facility] Comment on above: Performed By: #### L 500.2500, L100.0100 ####[facility] [address] [place], [address] Eosinophils/100 WBC (Bld) 6.0 % High 0-5 [facility] Comment on above: Performed By: #### L 500.2500, L100.0100 ####[facility] [address] [place], [address] Erythrocyte distribution width (RBC) [Ratio] 12.0 % Normal 11.6-14.6 [facility] Comment on above: Performed By: #### L 500.2500, L100.0100 ####[facility] [address] [place], [address] Hematocrit (Bld) [Volume fraction] 46.1 % Normal 40-54 [facility] Comment on above: Performed By: #### L 500.2500, L100.0100 ####[facility] [address] [place], [address] Hemoglobin (Bld) [Mass/Vol] 15.5 g/dL Normal 13.0-16.5 [facility] Comment on above: Performed By: #### L 500.2500, L100.0100 ####[facility] [address] [place], [address] IG% 0.600 Normal 0.0-0.9 [facility] Comment on above: Result Comment: IG% - Immature Granulocytes (promyelocytes, myelocytes and metamyelocytes) > 1% indicates that a LEFT SHIFT is Present. Performed By: #### L 500.2500, L100.0100 ####[facility] [address] [place], [address] Lymphocytes/100 WBC (Bld) 24.8 % Normal 19-41 [facility] Comment on above: Performed By: #### L 500.2500, L100.0100 ####[facility] [address] [place], [address] MCH (RBC) [Entitic mass] 30.7 pg Normal 27.0-32.0 [facility] Comment on above: Performed By: #### L 500.2500, L100.0100 ####[facility] [address] [place], [address] MCHC (RBC) [Mass/Vol] 33.6 g/dL Normal 32-36 [facility] Comment on above: Performed By: #### L 500.2500, L100.0100 ####[facility] [address] [place], [address] MCV (RBC) [Entitic vol] 91.3 fL Normal 80-94 [facility] Comment on above: Performed By: #### L 500.2500, L100.0100 ####[facility] [address] [place], [address] Monocytes/100 WBC (Bld) 8.5 % Normal 0-10 [facility] Comment on above: Performed By: #### L 500.2500, L100.0100 ####[facility] [address] [place], [address] Neutrophils/100 WBC (Bld) 59.7 % Normal 47-70 [facility] Comment on above: Performed By: #### L 500.2500, L100.0100 ####[facility] [address] [place], [address] Nucleated RBC (Bld) [#/Vol] 0 10*3/uL Normal 0-5 [facility] Comment on above: Performed By: #### L 500.2500, L100.0100 ####[facility] [address] [place], [address] Platelet mean volume (Bld) [Entitic vol] 9.7 fL Normal 6.2-12.0 [facility] Comment on above: Performed By: #### L 500.2500, L100.0100 ####[facility] [address] [place], [address] Platelets (Bld) [#/Vol] 234 10*3/uL Normal 150-450 [facility] Comment on above: Performed By: #### L 500.2500, L100.0100 ####[facility] [address] [place], [address] RBC (Bld) [#/Vol] 5.05 10*6/uL Normal 4.6-6.2 [facility] Comment on above: Performed By: #### L 500.2500, L100.0100 ####[facility] [address] [place], [address] RDW SD 40.2 fl Normal 35.1-43.9 [facility] Comment on above: Performed By: #### L 500.2500, L100.0100 ####[facility] [address] [place], [address] WBC (Bld) [#/Vol] 8.3 10*3/uL Normal 4.4-11.0 [facility] Comment on above: Performed By: #### L 500.2500, L100.0100 ####[facility] [address] [place], [address] Carbon dioxide, total [Moles /volume] in Central venous bloodOrdered By: Pedro Rivera on 11-27-2024 CO2 [Moles/Vol] 21.6 mmol/L 21.0-32.0 [facility] Chloride assayOrdered By: Lei Rivera on 11-27-2024 Chloride [Moles/Vol] 102 mmol/L 98-108 [facility] Emergency Department Summary on 11-27-2024 Emergency Department Summary [facility] Medical Records Department [address] [place] [address] Emergency Department Summary 11/27/24 MR#: [id number] Acct: [id number] Name: MAIRA GARCIA Rep #: [id number] : 1950 74 From: Pedro Rivera MD PCP: Dr. Hector Jc MD Status:REG ER Location: ED HPI History of Present Illness Chief Complaint: Numb/Ting Informant: patient Onset/Context/Timing Onset: Today Current Severity: Mild Maximum Severity: Mild Narrative Narrative: 74-year-old male history of high cholesterol hypertension. Presents today for bilateral facial numbness. Started around 8:45 am this morning. Said his chronic rash since around July is seen 2 different doctors for this in a dermatology office. Says it itches. He has been on prednisone and steroid creams. 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 He denies any significant change in his vision. No trouble speaking. No weakness or numbness to his arms or legs. Prior similar symptoms: No Recent Illness/Hospitalization: No PFSH PFS Medical History High blood cholesterol Colon adenomas Home Medications ???Medication ???Instructions ???Recorded ???Last Taken ???Type pravastatin 10 mg tablet 40 mg PO DAILY 01/04/15 Unknown Hi story budesonide-formoterol HFA 80 2 puff inhalation PRN PRN Sob /Or 07/05/17 Unknown History mcg-4.5 mcg/actuation aerosol Wheezing inhaler (Symbicort) doxazosin 2 mg tablet (Cardura) 2 mg PO QHS 07/05/17 Unknown Histo ry lansoprazole 15 mg capsule,delayed 15 mg PO PRN PRN Heartburn 07/05 Unknown History release (Prevacid) fluconazole 200 mg tablet 200 mg PO DAILY 7 days #7 tabs Unknown Rx (Diflucan) Allergy/AdvReac Type Severity Reaction Status Date / Time No Known Allergies Allergy Verified 11/27/24 10:10 Surgical History S/P colonoscopy Social History Smoking Status: Never smoker ROS ROS ED ROS Narrative Rash. Itching. Today facial numbness. Constitutional Constitutional ED: Denies chills or fever(s) Eyes Eyes: Denies blurry vision ENT ENT ED: Denies ear pain Cardiovascular Cardiovascular: Denies chest pain Respiratory/Chest Respiratory/Chest: Denies cough or dyspnea Gastrointestinal Gastrointestinal: Denies abdominal pain Genitourinary Genitourinary ED: Denies dysuria or hematuria Musculoskeletal Musculoskeletal: Denies arthralgias Integumentary Reports rash; Denies abscess or Abrasions Neurologic Neurologic: Denies headache(s) Psychiatric Psychiatric: Denies anxiety Endocrine Endocrinology: Denies cold intolerance Hematologic/Lymphatic Hematologic/Lymphatic: Reports none Allergic/Immunologic Allergic/Immunologic ED: Denies mouth swelling, tongue swelling or urticaria EXAM Physical Exam Narrative Exam Narrative: Well-appearing 74-year-old male. Vital signs stable afebrile. No acute distress. Companied by his . H EENT exam pupils round react light. Extra motions are intact. No facial droop. Normal speech. Neck nontender. Lungs clear to auscultation bilaterally. Heart regular rhythm rate about 85 no murmur. Chest wall ribs nontender. Abdomen soft nontender. Moving all 4 extremities. 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 No drift. Normal dorsi plantarflexion. Back nontender. Neurologically the patient is awake alert. Answer questions following commands. Again no facial droop. Normal speech. 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 No drift of either upper or lower extremities. NIH is 0. Const Vital Signs: 11/27/24 10:08 11/27/24 10:10 11/27/24 11:08 Temperature 97.7 F L 97.7 F L Temperature Source Oral Oral Pulse Rate 87 85 83 Respiratory Rate 18 18 17 Blood Pressure 187/94 H 187/94 H Blood Pressure Mean 125 125 Pulse Ox 97 97 96 Oxygen Delivery Method Room Air Room Air Room Air 11/27/24 12:08 Temperature Temperature Source Pulse Rate 68 Respiratory Rate Blood Pressure 176/84 H Blood Pressure Mean 114 Pulse Ox 98 Oxygen Delivery Method Positive well nourished and well developed General Appearance ED: well developed; Negative for pallor HEENT Reports moist mucous membranes Eyes PERRL and EOMs intact bilaterally General Eye ED: Negative for pale conjunctiva or scleral icterus Neck no lymphadenopathy, supple and no JVD Chest Wall inspection of chest normal Resp normal respiratory effort and clear to auscultation bilaterally Cardio regular rate, regular rhythm, S1 normal heart sound, S2 normal heart sound and no murmurs GI normal to inspection, nondistended, normoactive bowel sounds, non-tender, non-distended and no masses (more content not included)... Normal [facility] Eosinophil percentageOrdered By: Pedro Rivera on 11-27-2024 Eosinophils/100 WBC (Bld) 6.0 % High 0-5 [facility] Erythrocyte distribution wid th ratioOrdered By: Pedro Rivera on 11-27-2024 Erythrocyte distribution width (RBC) [Ratio] 12.0 % 11.6-14.6 [facility] Erythrocyte distribution wid th standard deviationOrdered By: Pedro Rivera on 11-27-2024 Erythrocyte distribution width (RBC) [Ratio] 40.2 fl 35.1-43.9 [facility] Glomerular filtration rate ( GFR) estimation/1.73 sq m using serum, plasma, or whole bOrdered By: Pedro Rivera on 11-27-2024 GFR/1.73 sq M.predicted among non-blacks MDRD (S/P/Bld) [Vol rate/Area] 63 mL/min/{1.73_m2} >60 [facility] [facility] Comment on above: mL/min/1.73m2 CKD-EP I Creatinine Equation (2020) Hematocrit Auto (Bld) [Volum e fraction]Ordered By: Pedro Rivera on 11-27-2024 Hematocrit (Bld) [Volume fraction] 46.1 % 40-54 [facility] Hemoglobin measurementOrdere d By: Pedro Rivera on 11-27-2024 Hemoglobin (Bld) [Mass/Vol] 15.5 g/dL 13.0-16.5 [facility] Immature granulocytes/100 WB C Auto (Bld)Ordered By: Pedro Rivera on 11-27-2024 Immature granulocytes/100 WBC (Bld) 0.600 % 0.0-0.9 [facility] Comment on above: IG% - Immature Granu locytes (promyelocytes, myelocytes and metamyelocytes) > 1% indicates that a LEFT SHIFT is Present. MCV (mean corpuscular volume ) determinationOrdered By: Pedro Rivera on 11-27-2024 MCV (RBC) [Entitic vol] 91.3 fL 80-94 [facility] Mean corpuscular hemoglobin (MCH) determinationOrdered By: Pedro Rivera on 11-27-2024 MCH (RBC) [Entitic mass] 30.7 pg 27.0-32.0 [facility] Mean corpuscular hemoglobin concentration (MCHC) determinationOrdered By: Pedro Rivera on 11-27-2024 MCHC (RBC) [Mass/Vol] 33.6 g/dL 32-36 [facility] Mean platelet volume determi nationOrdered By: Pedro Rivera on 11-27-2024 Platelet mean volume (Bld) [Entitic vol] 9.7 fL 6.2-12.0 [facility] Monocyte percentageOrdered B y: Pedro Rivera on 11-27-2024 Monocytes/100 WBC (Bld) 8.5 % 0-10 [facility] Neutrophil percentageOrdered By: Pedro Rivera on 11-27-2024 Neutrophils/100 WBC (Bld) 59.7 % 47-70 [facility] Nucleated red blood cell per centageOrdered By: Pedro Rivera on 11-27-2024 Nucleated RBC/100 WBC (Bld) [Ratio] 0 % 0-5 [facility] Platelet countOrdered By: Lei Rivera on 11-27-2024 Platelets (Bld) [#/Vol] 234 10*3/uL 150-450 [facility] Potassium measurement (mass/ volume)Ordered By: Pedro Rivera on 11-27-2024 Potassium (Unsp spec) [Mass/Vol] 4.0 mmol/L 3.3-5.1 [facility] RBC Auto (Bld) [#/Vol]Ordere d By: Pedro Rivera on 11-27-2024 RBC (Bld) [#/Vol] 5.05 10*6/uL 4.6-6.2 [facility] Serum creatinine measurement (mass/volume)Ordered By: Pedro Rivera on 11-27-2024 Creatinine [Mass/Vol] 1.22 mg/dL High 0.70-1.20 [facility] Serum glucose measurement (m ass/volume)Ordered By: Pedro Rivera on 11-27-2024 Glucose [Mass/Vol] 94 mg/dL 70-99 [facility] Serum or plasma calcium jon urement (mass/volume)Ordered By: Pedro Rivera on 11-27-2024 Calcium [Mass/Vol] 9.0 mg/dL 7.6-11.0 [facility] Serum or plasma urea nitroge n measurement (mass/volume)Ordered By: Pedro Rivera on 11-27-2024 Urea nitrogen [Mass/Vol] 18 mg/dL 4-19 [facility] Sodium levelOrdered By: Pedro Rivera on 11-27-2024 Sodium [Moles/Vol] 137 mmol/L 133-145 [facility] White blood cell (WBC) count Ordered By: Pedro Rivera on 11-27-2024 WBC (Bld) [#/Vol] 8.3 10*3/uL 4.4-11.0 [facility] Anion gap in Serum or Plasma Ordered By: Hector Jc on 07-07-2024 Anion gap [Moles/Vol] 10 mmol/L - [facility] BUN/creatinine ratioOrdered By: Hector Jc on 07-07-2024 Urea nitrogen/Creatinine [Mass ratio] 12.8 mg/mg 02-01 [facility] Basic Metabolic Profile (BMP )on 07-07-2024 BUN/CRE 12.8 RATIO Normal 02-01 [facility] Comment on above: Order Comment: Order Date: 11/13/23 Order Info: [id number] - BMP Order Date: 04/28/24 Order Info: [id number] - PSA Performed By: #### L 500.2500, L100.0500 #### [facility] [address] [place], [address] Calcium [Mass/Vol] 9.1 mg/dL Normal 7.6-11.0 [facility] Comment on above: Order Comment: Order Date: 11/13/23 Order Info: [id number] - BMP Order Date: 04/28/24 Order Info: [id number] - PSA Performed By: #### L 500.2500, L100.0500 #### [facility] [address] [place], [address] Chloride [Moles/Vol] 104 mmol/L Normal 98-108 [facility] Comment on above: Order Comment: Order Date: 11/13/23 Order Info: [id number] - BMP Order Date: 04/28/24 Order Info: [id number] - PSA Performed By: #### L 500.2500, L100.0500 #### [facility] [address] [place], [address] CO2 [Moles/Vol] 23.5 mmol/L Normal 21.0-32.0 [facility] Comment on above: Order Comment: Order Date: 11/13/23 Order Info: [id number] - BMP Order Date: 04/28/24 Order Info: [id number] - PSA Performed By: #### L 500.2500, L100.0500 #### [facility] [address] [place], [address] Creatinine [Mass/Vol] 1.10 mg/dL Normal 0.70-1.20 [facility] Comment on above: Order Comment: Order Date: 11/13/23 Order Info: [id number] - BMP Order Date: 04/28/24 Order Info: [id number] - PSA Performed By: #### L 500.2500, L100.0500 #### [facility] [address] [place], [address] GAP 10 Normal 5-15 [facility] Comment on above: Order Comment: Order Date: 11/13/23 Order Info: [id number] - BMP Order Date: 04/28/24 Order Info: [id number] - PSA Performed By: #### L 500.2500, L100.0500 #### [facility] [address] [place], [address] GFR/1.73 sq M.predicted among non-blacks MDRD (S/P/Bld) [Vol rate/Area] 71 mL/min/{1.73_m2} Normal >60 [facility] Comment on above: Order Comment: Order Date: 11/13/23 Order Info: [id number] - BMP Order Date: 04/28/24 Order Info: [id number] - PSA Result Comment: mL/m in/1.73m2 CKD-EPI Creatinine Equation (2020) Performed By: #### L 500.2500, L100.0500 #### [facility] [address] [place], [address] Glucose [Mass/Vol] 87 mg/dL Normal 70-99 [facility] Comment on above: Order Comment: Order Date: 11/13/23 Order Info: [id number]- - BMP Order Date: 04/28/24 Order Info: [id number] - PSA Performed By: #### L 500.2500, L100.0500 #### [facility] [address] [place], [address] Potassium [Moles/Vol] 4.0 mmol/L Normal 3.3-5.1 [facility] Comment on above: Order Comment: Order Date: 11/13/23 Order Info: [id number]- - BMP Order Date: 04/28/24 Order Info: 285- - PSA Performed By: #### L 500.2500, L100.0500 #### [facility] [address] [place], [address] Sodium [Moles/Vol] 137 mmol/L Normal 133-145 [facility] Comment on above: Order Comment: Order Date: 11/13/23 Order Info: [id number]- - BMP Order Date: 04/28/24 Order Info: [id number]- - PSA Performed By: #### L 500.2500, L100.0500 #### [facility] [address] [place], [address] Urea nitrogen [Mass/Vol] 14 mg/dL Normal 4-19 [facility] Comment on above: Order Comment: Order Date: 11/13/23 Order Info: [id number] - BMP Order Date: 04/28/24 Order Info: [id number] - PSA Performed By: #### L 500.2500, L100.0500 #### [facility] [address] [place], [address] CBC-Complete Blood Cnt No Arabella funes 07-07-2024 Erythrocyte distribution width (RBC) [Ratio] 11.9 % Normal 11.6-14.6 [facility] Comment on above: Order Comment: Order Date: 11/13/23 Order Info: [id number] - CBC Performed By: #### L 500.2500, L100.0500 #### [facility] [address] [place], [address] Hematocrit (Bld) [Volume fraction] 44.1 % Normal 40-54 [facility] Comment on above: Order Comment: Order Date: 11/13/23 Order Info: [id number] - CBC Performed By: #### L 500.2500, L100.0500 #### [facility] [address] [place], [address] Hemoglobin (Bld) [Mass/Vol] 14.3 g/dL Normal 13.0-16.5 [facility] Comment on above: Order Comment: Order Date: 11/13/23 Order Info: [id number] - CBC Performed By: #### L 500.2500, L100.0500 #### [facility] [address] [place], [address] MCH (RBC) [Entitic mass] 30.6 pg Normal 27.0-32.0 [facility] Comment on above: Order Comment: Order Date: 11/13/23 Order Info: [id number] - CBC Performed By: #### L 500.2500, L100.0500 #### [facility] [address] [place], [address] MCHC (RBC) [Mass/Vol] 32.4 g/dL Normal 32-36 [facility] Comment on above: Order Comment: Order Date: 11/13/23 Order Info: [id number] - CBC Performed By: #### L 500.2500, L100.0500 #### [facility] [address] [place], [address] MCV (RBC) [Entitic vol] 94.2 fL High 80-94 [facility] Comment on above: Order Comment: Order Date: 11/13/23 Order Info: [id number] - CBC Performed By: #### L 500.2500, L100.0500 #### [facility] [address] [place], [address] Platelet mean volume (Bld) [Entitic vol] 10.4 fL Normal 6.2-12.0 [facility] Comment on above: Order Comment: Order Date: 11/13/23 Order Info: [id number] - CBC Performed By: #### L 500.2500, L100.0500 #### [facility] [address] [place], [address] Platelets (Bld) [#/Vol] 251 10*3/uL Normal 150-450 [facility] Comment on above: Order Comment: Order Date: 11/13/23 Order Info: [id number] - CBC Performed By: #### L 500.2500, L100.0500 #### [facility] [address] [place], [address] RBC (Bld) [#/Vol] 4.68 10*6/uL Normal 4.6-6.2 [facility] Comment on above: Order Comment: Order Date: 11/13/23 Order Info: [id number] - CBC Performed By: #### L 500.2500, L100.0500 #### [facility] [address] [place], [address] RDW SD 41.3 fl Normal 35.1-43.9 [facility] Comment on above: Order Comment: Order Date: 11/13/23 Order Info: [id number] - CBC Performed By: #### L 500.2500, L100.0500 #### [facility] [address] [place], [address] WBC (Bld) [#/Vol] 6.9 10*3/uL Normal 4.4-11.0 [facility] Comment on above: Order Comment: Order Date: 11/13/23 Order Info: [id number] - CBC Performed By: #### L 500.2500, L100.0500 #### [facility] [address] [place], [address] Carbon dioxide, total [Moles /volume] in Central venous bloodOrdered By: Hector Jc on 07-07-2024 CO2 [Moles/Vol] 23.5 mmol/L 21.0-32.0 [facility] Chloride assayOrdered By: Joselo Jc on 07-07-2024 Chloride [Moles/Vol] 104 mmol/L 98-108 [facility] Erythrocyte distribution wid th ratioOrdered By: Hector Jc on 07-07-2024 Erythrocyte distribution width (RBC) [Ratio] 11.9 % 11.6-14.6 [facility] Erythrocyte distribution wid th standard deviationOrdered By: Hector Jc on 07-07-2024 Erythrocyte distribution width (RBC) [Entitic vol] 41.3 fL 35.1-43.9 [facility] GFR/1.73 sq M.predicted nicholas g non-blacks MDRD (S/P/Bld) [Vol rate/Area]Ordered By: Hector Jc on 07-07-2024 Estimated GFR (MDRD) Non-Af Amer 71 >60 [facility] Comment on above: mL/min/1.73m2 CKD-EP I Creatinine Equation (2020) Hematocrit Auto (Bld) [Volum e fraction]Ordered By: Hector Jc on 07-07-2024 Hematocrit (Bld) [Volume fraction] 44.1 % 40-54 [facility] Hemoglobin measurementOrdere d By: Hector Jc on 07-07-2024 Hemoglobin (Bld) [Mass/Vol] 14.3 g/dL 13.0-16.5 [facility] MCV (mean corpuscular volume ) determinationOrdered By: Hector Jc on 07-07-2024 MCV (RBC) [Entitic vol] 94.2 fL High 80-94 [facility] Mean corpuscular hemoglobin (MCH) determinationOrdered By: Hector Jc on 07-07-2024 MCH (RBC) [Entitic mass] 30.6 pg 27.0-32.0 [facility] Mean corpuscular hemoglobin concentration (MCHC) determinationOrdered By: Hector Jc on 07-07-2024 MCHC (RBC) [Mass/Vol] 32.4 g/dL 32-36 [facility] Mean platelet volume determi nationOrdered By: Hector Jc on 07-07-2024 Platelet mean volume (Bld) [Entitic vol] 10.4 fL 6.2-12.0 [facility] PSA, total screeningOrdered By: Hector Jc on 07-07-2024 Prostate Specific Antigen Screen 1.37 ng/mL 0.02-4.00 [facility] Comment on above: This test was perfor med using the [employer] tPSA method. Measured values of a patient sample can vary depending on the testing procedure used. PSA values determined on patient samples by different testing procedures cannot be used interchangeably. If there is a change in PSA assays while monitoring therapy, sequential testing should be performed to confirm baseline values. PSA,Total - Annual Screenon 07-07-2024 PSA,TOT SCREEN 1.37 ng/mL Normal 0.02-4.00 [facility] Comment on above: Order Comment: Order Date: 11/13/23 Order Info: [id number] - BMP Order Date: 04/28/24 Order Info: [id number] - PSA Result Comment: This test was performed using the [employer] tPSA method. Measured values of a patient??sample can vary depending on the testing procedure used. PSA values determined on patient samples by different testing procedures cannot be used interchangeably. If there is a change in PSA assays while monitoring therapy, sequential testing should be performed to confirm baseline values. Performed By: #### L 501.9910 #### [facility] [address] [place], [address] Platelet countOrdered By: Joselo Jc on 07-07-2024 Platelets (Bld) [#/Vol] 251 10*3/uL 150-450 [facility] Potassium (Unsp spec) [Mass/ Vol]Ordered By: Hector Jc on 07-07-2024 Potassium [Moles/Vol] 4.0 mmol/L 3.3-5.1 [facility] RBC Auto (Bld) [#/Vol]Ordere d By: Hector Jc on 07-07-2024 RBC (Bld) [#/Vol] 4.68 10*6/uL 4.6-6.2 [facility] Serum creatinine measurement (mass/volume)Ordered By: Hector Jc on 07-07-2024 Creatinine [Mass/Vol] 1.10 mg/dL 0.70-1.20 [facility] Serum glucose measurement (m ass/volume)Ordered By: Hector Jc on 07-07-2024 Glucose [Mass/Vol] 87 mg/dL 70-99 [facility] Serum or plasma calcium jon urement (mass/volume)Ordered By: Hector Jc on 07-07-2024 Calcium [Mass/Vol] 9.1 mg/dL 7.6-11.0 [facility] Serum or plasma urea nitroge n measurement (mass/volume)Ordered By: Hector Jc on 07-07-2024 Urea nitrogen [Mass/Vol] 14 mg/dL 4-19 [facility] Sodium levelOrdered By: Rajeev Jc on 07-07-2024 Sodium [Moles/Vol] 137 mmol/L 133-145 [facility] White blood cell (WBC) count Ordered By: Hector Jc on 07-07-2024 WBC (Bld) [#/Vol] 6.9 10*3/uL 4.4-11.0 [facility] Basic Metabolic Profile (BMP )on 04-20-2024 BUN/CRE 12.0 RATIO Normal 10-20 [facility] Comment on above: Order Comment: Order Date: 04/16/24Order Info: [id number] - BMPOrder Info: [id number] - LIPID Performed By: #### L 500.2500 ####[facility] [address] [place], [place], [id number] [place],Total 8.8 mg/dL Normal 8.5-10.1 [facility] Comment on above: Order Comment: Order Date: 04/16/24Order Info: [id number] - BMPOrder Info: [id number] - LIPID Performed By: #### L 500.2500 ####[facility] [address] [place], [address] Chloride [Moles/Vol] 108 mmol/L High 98-107 [facility] Comment on above: Order Comment: Order Date: 04/16/24Order Info: [id number] - BMPOrder Info: [id number] - LIPID Performed By: #### L 500.2500 ####[facility] [address] [place], [address] CO2 [Moles/Vol] 24.0 mmol/L Normal 21.0-32.0 [facility] Comment on above: Order Comment: Order Date: 04/16/24Order Info: [id number] - BMPOrder Info: - LIPID Performed By: #### L 500.2500 ####[facility] [address] [place], [address] Creatinine [Mass/Vol] 1.08 mg/dL Normal 0.70-1.30 [facility] Comment on above: Order Comment: Order Date: 04/16/24Order Info: [id number] - BMPOrder Info: [id number] - LIPID Result Comment: The validity of the calculated GFR GFRAA in patients over 70 years has not been determined. Clinical correlation is essential. Performed By: #### L 500.2500 ####[facility] [address] [place], [address] EST GFR - AA 86 mL/min Normal >60 [facility] Comment on above: Order Comment: Order Date: 04/16/24Order Info: [id number] - BMPOrder Info: [id number] - LIPID Result Comment: Afri can [place] GFR Calc Performed By: #### L 500.2500 ####[facility] [address] [place], [address] GAP 7 Normal 5-15 [facility] Comment on above: Order Comment: Order Date: 04/16/24Order Info: [id number] - BMPOrder Info: [id number] - LIPID Performed By: #### L 500.2500 ####[facility] [address] [place], [address] GFR/1.73 sq M.predicted among non-blacks MDRD (S/P/Bld) [Vol rate/Area] 71 mL/min/{1.73_m2} Normal >60 [facility] Comment on above: Order Comment: Order Date: 04/16/24Order Info: [id number] - BMPOrder Info: [id number] - LIPID Result Comment: Non- GFR Calc Performed By: #### L 500.2500 ####[facility] [address] [place], [address] Glucose [Mass/Vol] 83 mg/dL Normal 74-106 [facility] Comment on above: Order Comment: Order Date: 04/16/24Order Info: [id number] - BMPOrder Info: [id number] - LIPID Performed By: #### L 500.2500 ####[facility] [address] [place], [address] Potassium [Moles/Vol] 3.9 mmol/L Normal 3.5-5.1 [facility] Comment on above: Order Comment: Order Date: 04/16/24Order Info: [id number] - BMPOrder Info: [id number] - LIPID Performed By: #### L 500.2500 ####[facility] [address] [place], [address] Sodium [Moles/Vol] 139 mmol/L Normal 136-145 [facility] Comment on above: Order Comment: Order Date: 04/16/24Order Info: [id number] - BMPOrder Info: [id number] - LIPID Performed By: #### L 500.2500 ####[facility] [address] [place], [address] Urea nitrogen [Mass/Vol] 13 mg/dL Normal 7-18 [facility] Comment on above: Order Comment: Order Date: 04/16/24Order Info: [id number] - BMPOrder Info: [id number] - LIPID Performed By: #### L 500.2500 ####[facility] [address] [place], [address] Blood urea nitrogen (BUN)/cr eatinine ratioOrdered By: Hector Jc on 04-20-2024 Urea nitrogen/Creatinine [Mass ratio] 12.0 mg/mg 10-20 [facility] Carbon dioxide measurementOr dered By: Hector Jc on 04-20-2024 CO2 [Moles/Vol] 24.0 mmol/L 21.0-32.0 [facility] Chloride measurementOrdered By: Hector Jc on 04-20-2024 Chloride [Moles/Vol] 108 mmol/L High 98-107 [facility] Estimated glomerular filtrat ion rate (GFR) AmericanOrdered By: Hector Jc on 04-20-2024 Estimated GFR (MDRD) Amer 86 mL/min >60 [facility] Comment on above: GFR Calc Glomerular filtration rate ( GFR) estimationOrdered By: Hector Jc on 04-20-2024 Estimated GFR (MDRD) Non-Af Amer 71 mL/min >60 [facility] Comment on above: Non- GFR Calc Glucose measurementOrdered B y: Hector Jc on 04-20-2024 Glucose [Mass/Vol] 83 mg/dL 74-106 [facility] High density lipoprotein (HD L) measurementOrdered By: Hector Jc on 04-20-2024 Cholesterol in HDL [Mass/Vol] 56 mg/dL >40 [facility] Comment on above: The drugs N-Acetylcy steine and Metamizole may falsely depress this assay. Reference Range HDL <40 mg/dL Low HDL Cholesterol HDL >or= 60 mg/dL High HDL Cholesterol Lipid Profileon 04-20-2024 Cholesterol [Mass/Vol] 169 mg/dL Normal 200 [facility] Comment on above: Order Comment: Order Date: 04/16/24Order Info: [id number] - BMPOrder Info: [id number] - LIPID Result Comment: <200 mg/dL Desirable 200-240 mg/dL Borderline >240 mg/dL High Risk Performed By: #### L 500.4100 ####[facility] [address] [place], [address] Cholesterol in HDL [Mass/Vol] 56 mg/dL Normal [facility] Comment on above: Order Comment: Order Date: 04/16/24Order Info: [id number] - BMPOrder Info: [id number] - LIPID Result Comment: The drugs N-Acetylcysteine and Metamizole may falsely depress this assay. Reference Range HDL <40 mg/dL Low HDL Cholesterol HDL >or= 60 mg/dL High HDL Cholesterol Performed By: #### L 500.4100 ####[facility] [address] [place], [address] Cholesterol in LDL [Mass/Vol] 99 mg/dL Normal 0-130 [facility] Comment on above: Order Comment: Order Date: 04/16/24Order Info: 06 - BMPOrder Info: [id number] - LIPID Performed By: #### L 500.4100 ####[facility] [address] [place], [address] Cholesterol in VLDL [Mass/Vol] 14 mg/dL Normal 5-40 [facility] Comment on above: Order Comment: Order Date: 04/16/24Order Info: [id number] - BMPOrder Info: [id number] - LIPID Performed By: #### L 500.4100 ####[facility] [address] [place], [address] Triglyceride [Mass/Vol] 69 mg/dL Normal [facility] Comment on above: Order Comment: Order Date: 04/16/24Order Info: [id number] - BMPOrder Info: [id number] - LIPID Result Comment: The drugs N-Acetylcysteine and Metamizole may falsely depress this assay. Serum Triglycerides Reference Interval Normal <150 mg/dL Borderline high 150 - 199 mg/dL High 200 - 499 mg/dL Very High > or = 500 mg/dL Performed By: #### L 500.4100 ####[facility] [address] [place], [address] Low density lipoprotein (LDL ) cholesterol measurementOrdered By: Hector Jc on 04-20-2024 Cholesterol in LDL [Mass/Vol] 99 mg/dL 0-130 [facility] Potassium measurementOrdered By: Hector Jc on 04-20-2024 Potassium [Moles/Vol] 3.9 mmol/L 3.5-5.1 [facility] Serum anion gap measurementO rdered By: Hector Jc on 04-20-2024 Anion gap [Moles/Vol] 7 mmol/L 5-15 [facility] Serum or plasma calcium jon urement (mass/volume)Ordered By: Hector Jc on 04-20-2024 Calcium [Mass/Vol] 8.8 mg/dL 8.5-10.1 [facility] Serum or plasma cholesterol measurement (mass/volume)Ordered By: Hector Jc on 04-20-2024 Cholesterol [Mass/Vol] 169 mg/dL <200 [facility] Comment on above: <200 mg/dL Desirable 200-240 mg/dL Borderline >240 mg/dL High Risk Serum or plasma creatinine m easurement (mass/volume)Ordered By: Hector Jc on 04-20-2024 Creatinine [Mass/Vol] 1.08 mg/dL 0.70-1.30 [facility] Comment on above: The validity of the calculated GFR & GFRAA in patients over 70 years has not been determined. Clinical correlation is essential. Serum or plasma urea nitroge n measurement (mass/volume)Ordered By: Hector Jc on 04-20-2024 Urea nitrogen [Mass/Vol] 13 mg/dL 7-18 [facility] Sodium levelOrdered By: Rajeev Jc on 04-20-2024 Sodium [Moles/Vol] 139 mmol/L 136-145 [facility] Triglycerides measurementOrd ered By: Hector Jc on 04-20-2024 Triglyceride [Mass/Vol] 69 mg/dL <199 [facility] Comment on above: The drugs N-Acetylcy steine and Metamizole may falsely depress this assay.Serum Triglycerides Reference Interval Normal <150 mg/dL Borderline high 150 - 199 mg/dL High 200 - 499 mg/dL Very High > or = 500 mg/dL Very low density lipoprotein (VLDL) cholesterol measurementOrdered By: Hector Jc on 04-20-2024 VLDL Cholesterol 14 mg/dL 5-40 [facility] Basophil percentageOrdered B y: Esteban Jc on 06-28-2023 Basophil percentage 1.52 ng/mL 0.0-4.0 [facility] Comment on above: This test was perfor med using the TPSA assay method for theUroSens chemistry system. Values obtained with differentassay methods cannot be used interchangably.When changing PSA assays in the course of monitoring apatient, additional sequential testing should be carriedout to confirm baseline values. Basophil percentageOrdered B y: Esteban Jc on 04-16-2023 Bilirubin [Mass/Vol] 0.80 mg/dL 0.20-1.00 [facility] Comment on above: For patients on eltr ombopag therapy, use of Dimension [place] TBIL is not recommended. Chloride [Moles/Vol] 110 mmol/L 98-107 [facility] Cholesterol [Mass/Vol] 182 mg/dL <200 [facility] Comment on above: <200 mg/dL Desirable 200-240 mg/dL Borderline >240 mg/dL High Risk Glucose [Mass/Vol] 99 mg/dL 74-106 [facility] Potassium [Moles/Vol] 3.8 mmol/L 3.5-5.1 [facility] Protein [Mass/Vol] 7.0 g/dL 6.4-8.2 [facility] Sodium [Moles/Vol] 140 mmol/L 136-145 [facility] Triglyceride [Mass/Vol] 101 mg/dL <199 [facility] Comment on above: The drugs N-Acetylcy steine and Metamizole may falsely depress this assay.Serum Triglycerides Reference Interval Normal <150 mg/dL Borderline high 150 - 199 mg/dL High 200 - 499 mg/dL Very High > or = 500 mg/dL Laboratory - Chemistry and C hemistry - challengeOrdered By: Esteban Jc on 04-16-2023 ALP [Catalytic activity/Vol] 75 U/L 45-117 [facility] ALT [Catalytic activity/Vol] 25 U/L 16-61 [facility] CO2 [Moles/Vol] 25.0 mmol/L 21.0-32.0 [facility] Globulin (S) [Mass/Vol] 3.5 g/dL 2.2-4.2 [facility] Urea nitrogen/Creatinine [Mass ratio] 13.9 mg/mg 10-20 [facility] No Panel InformationOrdered By: Esteban Jc on 04-16-2023 Estimated GFR (MDRD) Amer 80 mL/min >60 [facility] Comment on above: GFR Calc Estimated GFR (MDRD) Non-Af Amer 66 mL/min >60 [facility] Comment on above: Non- GFR Calc Serum or plasma albumin jon urement (mass/volume)Ordered By: Esteban Jc on 04-16-2023 Albumin [Mass/Vol] 3.5 g/dL 3.2-5.0 [facility] Serum or plasma albumin/glob ulin mass ratioOrdered By: Esteban Jc on 04-16-2023 Albumin/Globulin [Mass ratio] 1.0 {ratio} 0.9-2.4 [facility] Serum or plasma calcium jon urement (mass/volume)Ordered By: Esteban Jc on 04-16-2023 Calcium [Mass/Vol] 9.1 mg/dL 8.5-10.1 [facility] Serum or plasma cholesterol in HDL measurement (mass/volume)Ordered By: Esteban Jc on 04-16-2023 Cholesterol in HDL [Mass/Vol] 49 mg/dL >40 [facility] Comment on above: The drugs N-Acetylcy steine and Metamizole may falsely depress this assay. Reference Range HDL <40 mg/dL Low HDL Cholesterol HDL >or= 60 mg/dL High HDL Cholesterol Serum or plasma cholesterol in VLDL measurement (mass/volume)Ordered By: Esteban Jc on 04-16-2023 Cholesterol in VLDL [Mass/Vol] 20 mg/dL 5-40 [facility] Serum or plasma creatinine m easurement (mass/volume)Ordered By: Esteban Jc on 04-16-2023 Creatinine [Mass/Vol] 1.15 mg/dL 0.70-1.30 [facility] Comment on above: The validity of the calculated GFR & GFRAA in patients over 70 years has not been determined. Clinical correlation is essential. Serum or plasma low density lipoprotein (LDL) cholesterol measurement (mass/volume)Ordered By: Esteban Jc on 04-16-2023 Cholesterol in LDL [Mass/Vol] 113 mg/dL 0-130 [facility] Serum or plasma urea nitroge n measurement (mass/volume)Ordered By: Esteban Jc on 04-16-2023 Urea nitrogen [Mass/Vol] 16 mg/dL 7-18 [facility] Thin prep Papanicolaou smear with manual screeningOrdered By: Esteban Jc on 04-16-2023 Thin prep Papanicolaou smear with manual screening 16 U/L 15-37 [facility] Thin prep Papanicolaou smear with manual screening 5 5-15 [facility] SURGICAL PATHOLOGYon 023 Case Report Surgical Pathology R eport Case: [id number] Authorizing Provider: Horacio Kruse MD Collected: 06/05/2022 10:36 AM Ordering Location: Ambulatory Surgery Received: 06/05/2022 02:47 PM Pathologist: Augustus Falcon MD Specimens: A) - ASCENDING COLON POLYP B) - TRANSVERSE COLON POLYP [facility] FINAL DIAGNOSIS A. Ascending colon p olyp, biopsy: - Fragments of tubular adenoma. B. Transverse colon polyp, biopsy: - Multiple fragments of tubulovillous adenoma. [facility] Gross Description A. ASCENDING COLON P OLYP Received in formalin is one piece of velázquez, soft tissue measuring 0.7 x 0.4 x 0.2 cm. Totally submitted in one cassette. B. TRANSVERSE COLON POLYP Received in formalin are multiple pieces of velázquez, soft tissue aggregating to 1.1 x 0.3 x 0.1 cm. Totally submitted in one cassette. June 06, 2022 1:35 AM Gross examination performed at [facility], [address] Performing Lab Diagnostic interpret ation performed at [facility], [address] [address] CLIA# [id number] Bunk Assembler: Orestes Ochoa M.D. [facility] COLONOSCOPY SCREENINGon 05-17 [facility] No Panel InformationOrdered By: Dr. Jc on 05-25-2022 Prostate Specific Antigen Screen 3.87 ng/mL 0.00-4.00 [facility] Comment on above: This test was perfor med using the TPSA assay method for theDiAbsolute Commercesicopygram chemistry system. Values obtained with differentassay methods cannot be used interchangably.When changing PSA assays in the course of monitoring apatient, additional sequential testing should be carriedout to confirm baseline values. Basophil percentageOrdered B y: Dr. Jc on 04-30-2022 Bilirubin [Mass/Vol] 0.90 mg/dL 0.20-1.00 [facility] Comment on above: For patients on eltr ombopag therapy, use of Dimension [place] TBIL is not recommended. Chloride [Moles/Vol] 106 mmol/L 98-107 [facility] Cholesterol [Mass/Vol] 171 mg/dL <200 [facility] Comment on above: <200 mg/dL Desirable 200-240 mg/dL Borderline >240 mg/dL High Risk Glucose [Mass/Vol] 99 mg/dL 74-106 [facility] Potassium [Moles/Vol] 4.0 mmol/L 3.5-5.1 [facility] Protein [Mass/Vol] 6.7 g/dL 6.4-8.2 [facility] Sodium [Moles/Vol] 142 mmol/L 136-145 [facility] Triglyceride [Mass/Vol] 111 mg/dL <199 [facility] Comment on above: The drugs N-Acetylcy steine and Metamizole may falsely depress this assay.Serum Triglycerides Reference Interval Normal <150 mg/dL Borderline high 150 - 199 mg/dL High 200 - 499 mg/dL Very High > or = 500 mg/dL Laboratory - Chemistry and C hemistry - challengeOrdered By: Dr. Jc on 04-30-2022 ALP [Catalytic activity/Vol] 68 U/L 45-117 [facility] ALT [Catalytic activity/Vol] 28 U/L 16-61 [facility] CO2 [Moles/Vol] 27.0 mmol/L 21.0-32.0 [facility] Globulin (S) [Mass/Vol] 3.0 g/dL 2.2-4.2 [facility] Urea nitrogen/Creatinine [Mass ratio] 14.4 mg/mg 10-20 [facility] No Panel InformationOrdered By: Dr. Jc on 04-30-2022 Estimated GFR (MDRD) Amer 78 mL/min >60 [facility] Comment on above: GFR Calc Estimated GFR (MDRD) Non-Af Amer 65 mL/min >60 [facility] Comment on above: Non- GFR Calc Serum or plasma albumin jon urement (mass/volume)Ordered By: Dr. Jc on 04-30-2022 Albumin [Mass/Vol] 3.7 g/dL 3.2-5.0 [facility] Serum or plasma albumin/glob ulin mass ratioOrdered By: Dr. Jc on 04-30-2022 Albumin/Globulin [Mass ratio] 1.2 {ratio} 0.9-2.4 [facility] Serum or plasma calcium jon urement (mass/volume)Ordered By: Dr. Jc on 04-30-2022 Calcium [Mass/Vol] 8.7 mg/dL 8.5-10.1 [facility] Serum or plasma cholesterol in HDL measurement (mass/volume)Ordered By: Dr. Jc on 04-30-2022 Cholesterol in HDL [Mass/Vol] 50 mg/dL >40 [facility] Comment on above: The drugs N-Acetylcy steine and Metamizole may falsely depress this assay. Reference Range HDL <40 mg/dL Low HDL Cholesterol HDL >or= 60 mg/dL High HDL Cholesterol Serum or plasma cholesterol in VLDL measurement (mass/volume)Ordered By: Dr. Jc on 04-30-2022 Cholesterol in VLDL [Mass/Vol] 22 mg/dL 5-40 [facility] Serum or plasma creatinine m easurement (mass/volume)Ordered By: Dr. Jc on 04-30-2022 Creatinine [Mass/Vol] 1.18 mg/dL 0.70-1.30 [facility] Comment on above: The validity of the calculated GFR & GFRAA in patients over 70 years has not been determined. Clinical correlation is essential. Serum or plasma low density lipoprotein (LDL) cholesterol measurement (mass/volume)Ordered By: Dr. Jc on 04-30-2022 Cholesterol in LDL [Mass/Vol] 99 mg/dL 0-130 [facility] Serum or plasma urea nitroge n measurement (mass/volume)Ordered By: Dr. Jc on 04-30-2022 Urea nitrogen [Mass/Vol] 17 mg/dL 7-18 [facility] Thin prep Papanicolaou smear with manual screeningOrdered By: Dr. Jc on 04-30-2022 Thin prep Papanicolaou smear with manual screening 13 U/L 15-37 [facility] Thin prep Papanicolaou smear with manual screening 9 5-15 [facility] Vital Signs Date Time Vital Sign Value Performing Clinician Faci lity 11-27-2024 12:57-0400 Body temperature 97.7 [degF] Dr. Hector Jc MD Work Phone: [facility] 11-27-2024 12:57-0400 Diastolic blood pressure 84 mm[Hg] Dr. Hector Jc MD Work Phone: [facility] 11-27-2024 12:57-0400 Heart rate 68 /min Dr. Hector Jc MD Work Phone: [facility] 11-27-2024 12:57-0400 Respiratory rate 17 /min Dr. Hector Jc MD Work Phone: [facility] 11-27-2024 12:57-0400 SaO2% (BldA) [Mass fraction] 98 % Dr. Hector Jc MD Work Phone: [facility] 11-27-2024 12:57-0400 Systolic blood pressure 176 mm[Hg] Dr. Hector Jc MD Work Phone: [facility] 11-27-2024 10:08-0400 Body height 177.[address] Hector Jc MD Work Phone: [facility] 11-27-2024 10:08-0400 Body mass index (BMI) [Ratio] 30.9 kg/m2 Dr. Hector Jc MD Work Phone: [facility] 11-27-2024 10:08-0400 Body weight [address] Hector Jc MD Work Phone: [facility] 06-05-2022 11:28-0500 Diastolic blood pressure 83 mm[Hg] Horacio Kruse MD Work Phone: [facility] 06-05-2022 11:28-0500 Heart rate 80 /min Horacio Kruse MD Work Phone: [facility] 06-05-2022 11:28-0500 Respiratory rate 16 /min Horacio Kruse MD Work Phone: [facility] 06-05-2022 11:28-0500 SaO2% (BldA) [Mass fraction] 94 % Horacio Kruse MD Work Phone: [facility] 06-05-2022 11:28-0500 Systolic blood pressure 160 mm[Hg] Horacio Kruse MD Work Phone: [facility] 06-05-2022 09:19-0500 Body temperature 97.7 [degF] Horacio Kruse MD Work Phone: [facility] 06-05-2022 09:19-0500 Body weight 94.3 kg Horacio Kruse MD Work Phone: [facility] 12-26-2021 15:32-0400 Body height 177.8 cm Evelyn David PA-C Work Phone: [facility] 12-26-2021 15:32-0400 Body temperature 98.2 [degF] Evelyn David PA-C Work Phone: [facility] 12-26-2021 15:32-0400 Body weight 94.35 kg Evelyn Calpine PA-C Work Phone: [facility] 12-26-2021 15:32-0400 Diastolic blood pressure 72 mm[Hg] Evelyn David PA-C Work Phone: [facility] 12-26-2021 15:32-0400 Heart rate 101 /min Evelyn Hernandez PA-C Work Phone: [facility] 12-26-2021 15:32-0400 SaO2% (BldA) [Mass fraction] 95 % Evelyn Hernandez PA-C Work Phone: [facility] 12-26-2021 15:32-0400 Systolic blood pressure 128 mm[Hg] Evelyn Hernandez PA-C Work Phone: [facility] Encounters Encounter Date Encounter Type Care Provider Facility Start: 02-08-2025 End: 02-08-2025 ambulatory YOSEPH ALEMAN Facility:[facility] Start: 02-03-2025 End: 02-03-2025 ambulatory Socrates SARMIENTO Facility:[facility] Start: 02-01-2025 End: 02-01-2025 ambulatory [facility] Facility:[facility] Start: 01-29-2025 ambulatory YOSEPH ALEMAN Facili ty:[facility] Start: 01-07-2025 End: 01-07-2025 ambulatory LEXI BURNETT Facility:[facility] Start: 01-05-[address] Hector Jc MD -[facility] Start: 01-05-2025 End: 01-05-2025 ambulatory Hector Jc Facility:[facility] Start: 12-28-2024 End: 12-28-[address] Hector Jc MD Work Phone: [facility] Start: 12-28-2024 End: 12-28-[address] [facility] Start: 12-28-2024 End: 12-28-2024 ambulatory Hector Jc Facility:[facility] Start: 12-15-2024 End: 12-15-2024 ambulatory [facility] Start: 12-04-2024 End: 12-04-[address] Hector Jc MD Work Phone: -[facility] Start: 12-04-2024 End: 12-04-2024 Patient encounter procedure Yohannes LEVY -[facility] Work Phone: Start: 12-04-2024 End: 12-04-2024 ambulatory Hector Jc Facility:[facility] Start: 11-27-2024 End: 11-27-2024 Emergency department patient visit Dr. Hector Jc MD Work Phone: -Emergency Department Work Phone: Start: 07-07-2024 End: 07-07-[address] Hector Jc MD Work Phone: [facility] Work Phone: Start: 07-07-2024 End: 07-07-[address] [facility] Start: 07-07-2024 End: 07-07-2024 ambulatory [facility] Facility:[facility] Start: 04-20-2024 End: 04-20-[address] [facility] Start: 04-20-2024 End: 04-20-2024 ambulatory Hector Jc Facility:[facility] Start: 06-28-2023 End: 06-28-2023 ambulatory [facility] Work Phone: Start: 06-28-2023 End: 06-28-[address] [facility] Work Phone: Start: 04-16-2023 End: 04-16-2023 ambulatory [facility] Work Phone: Start: 04-16-2023 End: 04-16-[address] [facility] Work Phone: Start: 06-11-2022 Telephone encounter Evelyn mcwilliams PA-C Work Phone: General Surgery Comment on above: Results (colonoscopy ) Start: 06-05-2022 End: 06-05-2022 Subsequent hospital visit by physician Horacio Kruse MD Work Phone: Ambulatory Surgery Comment on above: Tubular adenoma [D36 .9] Start: 05-25-2022 End: 05-25-2022 ambulatory [facility] Work Phone: Start: 05-25-2022 End: 05-25-2022 Patient encounter procedure [facility] Start: 04-30-2022 End: 04-30-2022 ambulatory [facility] Work Phone: Start: 04-30-2022 End: 04-30-2022 Patient encounter procedure [facility] Start: 12-26-2021 End: 12-26-2021 Patient encounter procedure Evelyn Hernandez PA-[employer] Work Phone: General Surgery Comment on above: Tubular adenoma (Joanne vern Dx); History of colonic polyps Start: 12-13-2021 Telephone encounter Evelyn mcwilliams PA-C Work Phone: General Surgery Comment on above: Patient Question (Farooq wel prep) Start: 06-20-2021 Telephone encounter Evelyn mcwilliams PA-C Work Phone: General Surgery Comment on above: 12-19-2021 [facility] Start: 02-17-2020 End: 02-17-2020 Patient encounter procedure Evelyn Hernandez Work Phone: [facility] Start: 02-17-2020 Results Only Evelyn Hernandez Work Phone: General Surgery Start: 02-10-2020 End: 02-10-2020 Patient encounter procedure Evelyn Hernandez Work Phone: [facility] Start: 02-10-2020 Results Only Evelyn Hernandez Work Phone: General Surgery Procedures Date Procedure Procedure Detail Performing Clinician Start: 01-05-2025 Allergen spec ige qu al multiallergen screen Dr. Hector Jc MD Work Phone: Start: 01-05-[address] Hector Jc MD Work Phone: Start: 01-05-[address] Hector Jc MD Work Phone: Start: 01-05-[address] Hector Jc MD Work Phone: Start: 01-05-[address] Rajeev Jc MD Work Phone: Start: 01-05-[address] Lauro Jc MD Work Phone: Start: 01-05-[address] Rajeev Jc MD Work Phone: Start: 01-05-[address] Hector Jc MD Work Phone: Start: 01-05-2025 Endomysial antibody IgA level Dr. Hector Jc MD Work Phone: Start: 01-05-[address] Lauro Jc MD Work Phone: Start: 01-05-2025 Gliadin antibody, Ig A measurement Dr. Hector Jc MD Work Phone: Comment on above: Negative 0 - 19 Weak Positive 20 - 30 Moderate to Strong Positive >30 Start: 01-05-2025 Gliadin antibody, Ig G measurement Dr. Hector Jc MD Work Phone: Comment on above: Negative 0 - 19 Weak Positive 20 - 30 Moderate to Strong Positive >30 Start: 01-05-[address] Lauro Jc MD Work Phone: Start: 01-05-2025 House dust mite (Df) RAST Dr. Hector Jc MD Work Phone: Start: 01-05-2025 Measurement of immunoglobulin A in serum specimen Dr. Hector Jc MD Work Phone: Start: 01-05-[address] Hector Jc MD Work Phone: Start: 01-05-[address] Meg Jc MD Work Phone: Start: 01-05-2025 Penicillium [address] num [address] Hector Jc MD Work Phone: Start: 01-05-2025 Plantain (Stateless) RASYong Jc MD Work Phone: Start: 01-05-2025 Shrimp RASYong Jc MD Work Phone: Start: 01-05-2025 Tree pollen RASYong Jc MD Work Phone: Start: 01-05-2025 [place] pollen ANTOINETTE Jc MD Work Phone: Start: 12-28-[address] Brandin Jc MD Work Phone: Start: 12-28-2024 Electrophoresis: [id number] Dr. Hector Jc MD Work Phone: Start: 12-28-2024 Electrophoresis: [id number] Dr. Hector Jc MD Work Phone: Start: 12-28-2024 Electrophoresis: jose ma globulin Dr. Hector Jc MD Work Phone: Start: 12-28-2024 Urnls dip stick/tabl et reagent auto microscopy Dr. Hector Jc MD Work Phone: Start: 12-04-[address] Cosmo Jc MD Work Phone: Comment on above: Performed at: [address] [id number] Director: Wyatt Kevin PhD, Phone: [phone] Start: 12-04-2024 Urnls dip stick/tabl et reagent auto microscopy Dr. Hector Jc MD Work Phone: Start: 11-27-2024 CT of head without contrast Dr. Hector Jc MD Work Phone: Start: 11-27-[address] Hector Jc MD Work Phone: Start: 06-05-2022 Level iv surg pathol ogy gross&microscopic exam Horacio Kruse MD Work Phone: Start: 06-05-2022 Colonoscopy flx dx w /collj spec when pfrmd Evelyn Calpine PA-C Work Phone: Start: 06-05-2022 Colonoscopy Evelyn Gra f PA-C Work Phone: Start: 12-19-2021 Colonoscopy Evelyn Gra f PA-C Work Phone: Start: 06-06-2021 Colonoscopy Evelyn Gra f PA-C Work Phone: Start: 02-17-2020 PT ED PATIENT INFORMATION Evelyn David Work Phone: Start: 02-10-2020 PT ED PATIENT INFORMATION Evelyn David Work Phone: Plan of Treatment Date Care Activity Detail Author Start: 11-01-2030 Urine microalbumin profile DTaP,Tdap,Td Vaccine (2 - Td or Tdap) [facility] Start: 11-27-2024 [facility] Start: 06-05-2024 Colonoscopy COLONOSCOPY [facility] Start: 06-05-2024 COLORECTAL CANCER SCREENING COLORECTAL CANCER SCREENING [facility] Start: 12-19-2022 Colonoscopy COLONOSCOPY [facility] Start: 12-19-2022 COLORECTAL CANCER SCREENING COLORECTAL CANCER SCREENING [facility] Start: 12-14-2022 Covid-19 Vaccine ( season) Covid-19 Vaccine ( season) [facility] Start: 12-14-2022 Influenza vaccination Influenza Vacc ine (#1) [facility] Start: 06-06-2022 Colonoscopy COLONOSCOPY [facility] Start: 06-06-2022 COLORECTAL CANCER SCREENING COLORECTAL CANCER SCREENING [facility] Start: 04-23-2022 Pneumococcal Vaccine : 65+ (3 - PPSV23 or PCV20) Pneumococcal Vaccine: 65+ (3 - PPSV23 or PCV20) [facility] Start: 04-15-2022 ADVANCE DIRECTIVE DISCUSSION ADVANCE DIRECTIVE DISCUSSION [facility] Start: 04-15-2022 DEPRESSION ASSESSMENT DEPRESSION ASS ESSMENT [facility] Start: 12-14-2021 Influenza vaccination INFLUENZA (#1) [facility] Start: 04-15-2021 ADVANCE DIRECTIVE DISCUSSION ADVANCE DIRECTIVE DISCUSSION [facility] Start: 04-08-2021 COVID-19 VACCINE (5 - Booster for Moderna series) COVID-19 VACCINE (5 - Booster for Moderna series) [facility] Start: 12-15-2019 Influenza vaccination INFLUENZA (#1) [facility] Start: 02-25-2016 ADVANCE DIRECTIVE DISCUSSION ADVANCE DIRECTIVE DISCUSSION [facility] Start: 02-25-2016 PNEUMOCOCCAL: 65+ (1 - PCV) PNEUMOCOCCAL: 65+ (1 - PCV) [facility] Start: 02-25-2016 PNEUMOVAX AGE 65 AND OVER WITH 5YR LOOKBACK (#1) PNEUMOVAX AGE 65 AND OVER WITH 5YR LOOKBACK (#1) [facility] Start: 2011 RSV Vaccine (1 - 1-d ose 60+ series) RSV Vaccine (1 - 1-dose 60+ series) [facility] Start: 2006 PROSTATE CANCER SCREENING DISCUSSION PROSTATE CANCER SCREENING DISCUSSION [facility] Start: 2001 SHINGRIX VACCINE (1 of 2) SHINGRIX VACCINE (1 of 2) [facility] Start: 2001 Tuberculosis screening COLOREC MADHAVI CANCER SCREENING,SEE MODIFIER [facility] Start: 02-25-1996 COLOGUARD (FIT-DNA) COLOGUARD (FIT-D NA) [facility] Start: 02-25-[address] COLONOGRAPHY [facility] Start: 02-25-1996 DIABETES SCREEN DIABETES SCREEN [facility] Start: 02-25-1996 Diabetes Screening Diabetes Screenin g [facility] Start: 02-25-1996 FECAL OCCULT BLOOD FECAL OCCULT BLOO D [facility] Start: 02-25-1996 SIGMOIDOSCOPY SIGMOIDOSCOPY [facility] Start: 1986 Lipid 1996 panel - S jen or Plasma Lipid Screening [facility] Start: 1986 LIPID SCREEN LIPID SCREEN [facility] Start: 1970 Urine microalbumin profile DTAP,TDAP,TD (1 - Tdap) [facility] Start: 1969 HEPATITIS C SCREENING HEPATITIS C SC JAN [facility] Start: 1963 Adult depression screening assessment DEPRESSION SCREENING [facility] End: 06-20-2022 COLONOSCOPY DIAGNOSTIC COLONOSCOPY DIAGNOSTIC Endoscopy Routine Tubular adenoma 1 Occurrences starting 06/20/2021 until 06/20/2022 [facility] Work Phone: Comment on above: 1 Occurrences starti ng 06/20/2021 until 06/20/2022 Patient Education Nonspecific Sk in Rash ED [facility] Work Phone: PT ED PATIENT INFORMATION [facility] Immunizations Immunization Date Immunization Notes Care Provider Fa paramjit 02-08-2022 influenza virus vacc ine, unspecified formulation Horacio Kruse MD Work Phone: [facility] Payers Date Payer Category Payer Self-pay [id number] 2024 Medicare [id number] 2022 Medicare HUMANA MEDICARE HUMANA GOLD PLUS [id number] 2022-Present [phone] [address] [address] [place] [address] HMO [id number] 2018 Unknown [id number] 2018 Unknown ANTHEM BLUE CROS S AND BLUE SHIELD ANTHEM MEDIBLUE HMO [id number] 2018-Present [phone] [address] [place] [address] HMO [id number] 2014 Unknown [id number] Private Health Insurance [id number] Unknown [id number] Unknown [id number] Unknown [id number] Unknown [id number] Unknown [id number] Unknown [id number] Unknown [id number] Unknown [id number] Unknown [id number] Social History Date Type Detail Facility Tobacco smoking stat us RIIS Unknown if ever smoked [facility] Start: 1950 Sex Assigned At Not on file [facility] Start: 03-22-2020 End: 11-27-2024 Tobacco smoking status NHIS Never smoked tobacco [facility] Start: 03-22-2020 End: 12-26-2021 Tobacco use and exposure Smokeless tobacco non-user [facility] Start: 06-20-2021 End: 06-05-2022 Alcohol intake Current drinker of alcohol (finding) [facility] Start: 03-22-2020 History SDOH Alcohol Comment after work [facility] Start: 05-21-2021 End: 12-26-2021 Exposure to SARS-CoV-2 (event) Not sure [facility] Start: 07-16-2017 End: 07-16-2017 Tobacco smoking status NHIS Unknown if ever smoked [facility] Start: 1950 Sex Assigned At Male [facility] Start: 05-06-2022 End: 06-05-2022 History of Social function [facility] Start: 05-06-2022 End: 06-05-2022 Tobacco use panel [facility] National Score (1-100), lower number is lower risk 67 [facility] Start: 07-13-2024 Sex Male (finding) [facility] Mental Status Date Assessment Result Facility 11-27-2024 Cognitive function Voice/Name [facility] Work Phone: Clinical Notes 06-20-2021 to 02-08-2025 Telephone Encounter - Vern Overton, MIRROR MACHINE FEEDER - 06/11/2022 1:51 PM ESTTelephone Encounter - Evelyn Hernandez PA-C - 06/11/2022 1:33 PM ESTTelephone Encounter - Vern Overton, MIRROR MACHINE FEEDER - 06/11/2022 1:23 PM EST Note Date & Type Note Facility 02-08-2025 Note HNO ID: [id number] Author: LEXI BURNETT APRN.[employer] ARCHITECT Service: ? Author Type: Nurse Practitioner Type: Progress Notes Filed: 02/08/2025 09:51 Note Text: FOLLOW UP VISIT - ENDOSCOPY Joe Garcia 1950 [id number] REFERRING PHYSICIAN: Yoseph Aleman III [address] [facility] [address] Joe Garcia is a patient I am following for screening colonoscopy AND heartburn/unintentional weight loss/decreased appetite. Dr. Aleman performed upper AND lower endoscopy on 01/29/25. The patient was found to have EGD Impression: - Z-line irregular, 40 cm from the incisors. Biopsied. - LA Grade A reflux esophagitis with no bleeding. Biopsied. - Gastritis, characterized by erythema. Biopsied. - Normal examined duodenum. Biopsied. COLONOSCOPY Impression: - Preparation of the colon was poor. 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 Biopsied. Tattooed. - The entire examined colon is normal. Biopsied. - Stool in the entire examined colon. - Non-bleeding internal hemorrhoids. - The examination was otherwise normal. Pathology demonstrated: FINAL DIAGNOSIS A. Duodenum, biopsy: - No significant pathologic change. B. Gastric antrum, biopsy: - No significant pathologic change. - No morphologic evidence of Helicobacter pylori. C. Distal esophagus, biopsy: - Squamous mucosa with focal ulcer and regenerative epithelial changes. - No evidence of intestinal metaplasia or dysplasia. - No evidence of eosinophilia. D. Mid esophagus, biopsy: - Fragments of unremarkable squamous mucosa. - No evidence of eosinophilia. E. Colon, random biopsy: - No significant pathologic change. - No evidence of lymphocytic or collagenous colitis. F. Transverse colon mass, biopsy: - Fragments of tubulovillous adenoma. - No evidence of invasive carcinoma. The patient notes some heart burn especially at night -notes drinking coffee first thing in the AM -drinks a couple beers with dinner -been taking pepcid with good relief -notes dermatology told him to stop taking [employer] brand nexium d/t the blue dying thinking it caused his diffuse rash that he has had for close to 1 year. VITALS: There were no vitals taken for this visit. General: patient is alert, cooperative, pleasant and in no acute distress On examination, the abdomen is benign. Assessment ASSESSMENT/PLAN: 1. Gastroesophageal reflux disease with esophagitis without hemorrhage - ICD9: 530.81, 530.10, ICD10: K21.00 (primary diagnosis) - Discussed lifestyle modifications including losing weight, limiting caffeine, no meals three hours before sleep, and head of bed elevation - Begin treatment with Nexium 40 mg every day until next EGD 2. Ulcer of esophagus without bleeding - ICD9: 530.20, ICD10: K22.10 - Same as #1 3. Gastritis without bleeding, unspecified chronicity, unspecified gastritis type - ICD9: 535.50, ICD10: K29.70 - Nexium 40mg daily - Avoid NSAIDs AND alcohol - Limit caffeine AND acidic foods 4. 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 Sarmiento The operative findings and pathology report were reviewed with the patient, and the patient has had the opportunity to ask questions and have questions answered. If the patient notes any problems or changes in bowel function, the patient should contact me immediately. Otherwise I recommend follow up EGD in 3-6 AND colonoscopy based off Dr. Sarmiento's recommendations. If Dr. Sarmiento's repeat colonoscopy is due in 6 mos- okay to complete EGD at the same time. HM updated. Discussed treatment plan and patient voices understanding. Patient's questions answered appropriately. Medications and potential side effects were discussed and patient voices understanding. Return to the office as scheduled or as needed for worsening/no improvement. Lexi Burnett APRN.LUIS [facility] 01-07-2025 Note HNO ID: [id number] Author: LEXI BURNETT APRN.LUIS Service: ? Author Type: Nurse Practitioner Type: Progress Notes Filed: 01/07/2025 10:43 Note Text: HISTORY AND PHYSICAL Joe Garcia : 1950 REFERRING PHYSICIAN: No referring provider defined for this encounter. CHIEF COMPLAINT: Patient presents with: Consult: colonoscopy HPI: Joe is a 74 year old male referred for endoscopy. Joe notes due for screening colonoscopy-hx of polyps (2022). Joe recently developed a diffuse rash all over his upper trunk, head, neck and arms-present since July. He was seen by derm and it was determined to be internal. PCP completed celiac work up, CEA, CT abd/pelv, referral to allergy AND hematology. -lab work pending 01/07 -no ct scan scheduled yet- waiting to see if it is covered by insurance Joe denies abdominal pain. Joe denies diarrhea. Joe denies constipation. Joe denies a change in bowel habits. Joe denies melena. Joe denies bright red blood per rectum. Joe notes daughter with celiac dx Joe notes heartburn. -recent increase, worse if eats bread -typically controlled with pepcid prn but seems to be taking it daily now Joe notes a distant history of dysphagia. -has resolved since starting the pepcid Joe notes unintentional weight loss -down 16 lbs Joe notes decreased appetite due to lack of taste Joe denies N/V/epigastric pain Joe's medical history is significant for HTN,HLD and asthma. He denies CP, SOB, dizziness, palpitations, syncope, edema, recent hospitalizations Joe has undergone prior endoscopy. Last colonoscopy was 05/[address] Kruse at [facility]. Sedation: Midazolam 6 mg IV, Fentanyl [...] head/spinal injuries, and denies stroke/TIA. Psychiatric: The (more content not included)... [facility] 11-27-2024 Discharge summary [facility] 11-27-2024 Radiology Diagnostic study note [facility] Imaging Services [address] [place], [place] [address] Brain/Head without Contrast MR#: [id number] Acct: [id number] Name: MAIRA GARCIA Rep #: [id number] : 1950 M 74 From: Lobo Bah MD PCP: Dr. Hector Jc MD Status: REG ER Study:Brain/Head without Contrast Date of Exa m: 11/27/24 Exam# [id number] Ordering Dr: Brigid Rivera MD PROCEDURE: BRAIN/HEAD WITHOUT CONTRAST 11/27/2024 REASON FOR EXAM: BILATERAL FACIAL NUMBNESS. TECHNIQUE: BRAIN/HEAD WITHOUT CONTRAST Coronal and Sagittal reconstruction series were provided. One or more dose reduction techniques were used (e.g., Automated exposure control, adjustment of the mA and/or kV according to patient size, use of iterative reconstruction technique. RADIATION DOSE SUMMARY: CTDlvol: 44.99 mGy DLP: 846.73 mGycm COMPARISON: None FINDINGS: Brain: Within normal limits for age CSF Spaces: Mild generalized cerebral atrophy Sinuses/Mastoids: Clear at visualized levels Bones: Unremarkable CT/Brain/Head without Contrast IMPRESSION: Mild cerebral atrophy. No acute abnormality is seen. Reading Location: [place] [address] CC: Dr. Hector Jc MD; Dr. 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 Vern Overton LPN Please let patient know pathology returned as adenomatous polyps-benign, but precancerous type of polyps. Plan for 2 year repeat colonoscopy as discussed per Dr. Kruse. Please ensure HM and surgical history updated, and generate recall letter for 2 yrs Patient called in for results from colonoscopy, please review and advise. Thank you. Joe# [phone] documented in this encounter [facility] 06-05-2022 Nurse Note Patient arrived in phase II via cart left lateral position, eyes closed but open to verbal stimuli, alert to self and event, skin warm and dry, abdomen distended, slightly firm, patient denies pain or nausea, reports it just feels tight. Encouraged to pass air rectally as able. documented in this encounter [facility] 06-05-2022 History and physical note PROCEDURAL SEDATION [...] up colonoscopy SEDATION GOAL: Moderate SIGNATURE: Horacio Kruse MD PATIENT NAME: Joe Garcia DATE: June 05, 2022 TIME: 10:09 AM Source Note - Horacio Kruse MD - 06/05/2022 9:45 AM EST Images from the original note were not included. FOLLOW UP VISIT - ENDOSCOPY NAME: [facility] NO.: [id number] DATE OF SERVICE: 12/26/2021 : 1950 REFERRING PHYSICIAN: Hector Jc MD Joe is a patient I am following with Dr. Kruse for history of multiple colon polyps. Dr. Kruse performed lower endoscopy on 12/19/21. The patient [...] C (98.2 F), height 177.8 cm (5' 10), weight 94.3 kg (208 lb), SpO2 95 [...] which included preparing to see the patient, [id number] patient care, completing clinical documentation, obtaining and/or reviewing separately obtained history, counseling and educating the patient/family/caregiver, ordering medications, tests, or procedures, communicating with other HCPs (not separately reported), independently interpreting results (not separately reported), communicating results to the patient/family/caregiver, and care coordination (not separately reported). Evelyn Hernandez PA-C Images from the original note were not included. FOLLOW UP VISIT - ENDOSCOPY NAME: Joe [facility] NO.: [id number] DATE OF SERVICE: 12/26/2021 : 1950 REFERRING PHYSICIAN: Hector Jc MD Joe is a patient I am following with Dr. Kruse for history of multiple colon polyps. Dr. Kruse performed lower endoscopy on 12/19/21. The patient [...] C (98.2 F), height 177.8 cm (5' 10), weight 94.3 kg (208 lb), SpO2 95 [...] which included preparing to see the patient, [id number] patient care, completing clinical documentation, obtaining and/or reviewing separately obtained history, counseling and educating the patient/family/caregiver, ordering medications, tests, or procedures, communicating with other HCPs (not separately reported), independently interpreting results (not separately reported), communicating results to the patient/family/caregiver, and care coordination (not separately reported). Evelyn Hernandez PA-C documented in this encounter [facility] 12-26-2021 History of Present illness Narrative FOLLOW UP VISIT - ENDOSCOPY NAME: [facility] NO.: [id number] DATE OF SERVICE: 12/26/2021 : 1950 REFERRING PHYSICIAN: Hector Jc MD Joe is a patient I am following with Dr. Kruse for history of multiple colon polyps. Dr. Kruse performed lower endoscopy on 12/19/21. The patient [...] C (98.2 F), height 177.8 cm (5' 10), weight 94.3 kg (208 lb), SpO2 95 [...] which included preparing to see the patient, [id number] patient care, completing clinical documentation, obtaining and/or reviewing separately obtained history, counseling and educating the patient/family/caregiver, ordering medications, tests, or procedures, communicating with other HCPs (not separately reported), independently interpreting results (not separately reported), communicating results to the patient/family/caregiver, and care coordination (not separately reported). Evelyn Hernandez PA-C documented in this encounter [facility] 12-13-2021 Miscellaneous Notes Rx sent Patient called in requesting a script for Florentino for a colonoscopy on 12/19/[address] Kruse. Pharmacy [facility] Thanks. documented in this encounter [facility] 06-20-2021 Miscellaneous Notes 12-19-2021 Colon ASC documented in this encounter [facility] Discharge summary Note Date/Time November 27, 2024 1:01pm [facility] Medical Records Department [address] [place] [address] Emergency Department Summary 11/27/24 MR#: [id number] Acct: [id number] Name: MAIRA GARCIA Rep #:[id number] : 1950 74 From: Pedro Rivera MD PCP: Dr. Hector Jc MD Status :REG ER Location: ED HPI History of Present Illness Chief Complaint: Numb/Ting Informant: patient Onset/Context/Timing Onset: Today Current Severity: Mild Maximum Severity: Mild Narrative Narrative: 74-year-old male history of high cholesterol hypertension. Presents today for bilateral facial numbness. Started around 8:45 am this morning. Said his chronic rash since around July is seen 2 different doctors for this in a dermatology office. Says it itches. He has been on prednisone and steroid creams. Currently shared services and outsourcing manager office where he saw physician insurance sales assistant has himon doxycycline. He denies any significant change in his vision. No trouble speaking. No weakness or numbness to his arms or legs. Prior similar symptoms: No Recent Illness/Hospitalization: No PFSH PFSH Medical History High blood cholesterol Colon adenomas Home Medications ?Medication ?Instructions ?Recorded ?Last Taken ?Type pravastatin 10 mg tablet 40 mg PO DAILY 01/04/15 Unkn own History budesonide-formoterol HFA 80 2 puff inhalation PRN PRN Sob &/Or 07/05/17 Unknown History mcg-4.5 mcg/actuation aerosol Wheezing inhaler (Symbicort) doxazosin 2 mg tablet (Cardura) 2 mg PO QHS 07/05/17 U nknown History lansoprazole 15 mg capsule,delayed 15 mg PO PRN PRN He artburn 07/05/17 Unknown History release (Prevacid) fluconazole 200 mg tablet 200 mg PO DAILY 7 days #7 ta bs 11/27/24 Unknown Rx (Diflucan) Allergy/AdvReac Type Severity Reaction Status Date / Time No Known Allergies Allergy Verified 11/27/24 10:10 Surgical History S/P colonoscopy Social History Smoking Status: Never smoker ROS ROS ED ROS Narrative Rash. Itching. Today facial numbness. Constitutional Constitutional ED: Denies chills or fever(s) Eyes Eyes: Denies blurry vision ENT ENT ED: Denies ear pain Cardiovascular Cardiovascular: Denies chest pain Respiratory/Chest Respiratory/Chest: Denies cough or dyspnea Gastrointestinal Gastrointestinal: Denies abdominal pain Genitourinary Genitourinary ED: Denies dysuria or hematuria Musculoskeletal Musculoskeletal: Denies arthralgias Integumentary Reports rash; Denies abscess or Abrasions Neurologic Neurologic: Denies headache(s) Psychiatric Psychiatric: Denies anxiety Endocrine Endocrinology: Denies cold intolerance Hematologic/Lymphatic Hematologic/Lymphatic: Reports none Allergic/Immunologic Allergic/Immunologic ED: Denies mouth swelling, tongue swelling or urticaria EXAM Physical Exam Narrative Exam Narrative: Well-appearing 74-year-old male. Vital signs stable afebrile. No acute distress. Companied by his . H EENT exam pupils round react light. Extra motions are intact. No facial droop. Normal speech. Neck nontender. Lungs clear to auscultation bilaterally. Heart regular rhythm rate about 85 no murmur. Chest wall ribs nontender. Abdomen soft nontender. Moving all 4 extremities. 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 No drift. Normal dorsi plantarflexion. Back nontender. Neurologically the patient is awake alert. Answer questions following commands. Again no facial droop. Normal speech. 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 No drift of either upper or lower extremities. NIH is 0. Const Vital Signs: 11/27/24 10:08 11/27/24 10:10 11/27/24 11:08 Temperature 97.7 F L 97.7 F L Temperature Source Oral Oral Pulse Rate 87 85 83 Respiratory Rate 18 18 17 Blood Pressure 187/94 H 187/94 H Blood Pressure Mean 125 125 Pulse Ox 97 97 96 Oxygen Delivery Method Room Air Room Air Room Air 11/27/24 12:08 Temperature Temperature Source Pulse Rate 68 Respiratory Rate Blood Pressure 176/84 H Blood Pressure Mean 114 Pulse Ox 98 Oxygen Delivery Method Positive well nourished and well developed General Appearance ED: well developed; Negative for pallor HEENT Reports moist mucous membranes Eyes PERRL and EOMs intact bilaterally General Eye ED: Negative for pale conjunctiva or scleral icterus Neck no lymphadenopathy, supple and no JVD Chest Wall inspection of chest normal Resp normal respiratory effort and clear to auscultation bilaterally Cardio regular rate, regular rhythm, S1 normal heart sound, S2 normal heart sound and no murmurs GI normal to inspection, nondistended, normoactive bowel sounds, non-tender, non-distended and no masses Auscultation: normoactive bowel sounds Palpation: Negative for soft, tender or guarding Back/Spine no CVA tenderness General Back: Negative for CVA tenderness Cervical Spine: Negative for cervical spine tenderness Thoracic Spine / Upper Back: Negative for thoracic spinal tenderness or paraspinal muscle tenderness Lumbar Spine / Lower Back: Negative for lumbar spinal tenderness Extremity normal to inspection General Extremety ED: Yes tenderness; Negative for edema General Extremity: Negative for edema Neuro oriented x3, CN's II-XII intact bilaterally and no sensory deficits noted Sensorium / Orientation: alert; Negative for orientation impaired, lethargic or stuporous Motor Exam: strength 5/5 throughout; Negative for general weakness or strength abnormal Psych mental status grossly normal Skin No no rashes or lesions noted, no wounds and skin turgor normal General Skin Exam: Negative for jaundice or pallor Rashes: rashes noted Wounds: Negative for wounds noted MDM MDM MDM Narrative Medical decision making narrative: 74-year-old male presents with facial numbness. He is neurologic exam is normal. Clinically I strongly do not believe this to be a stroke. He is on a lot of Benadryl and Zyrtec. He has a normal neurologic exam and NIH is 0. I will CT his brain get a CBC and chemistry make sure his electrolytes are off. No rash to me looks like more of an allergic reaction but he is really not had any help with steroids or steroid creams. Currently does not look like an infection. Repeat exam patient is doing well around 12:42 PM. Went over his CAT scan and lab work. He will be discharged home with outpatient follow-up. Patient only given a Kenalog shot for possible allergic reaction. Diflucan for yeast infection. Pepcid for the itching. History & Record Review Discussion w/independent historian: Patient and Family Additional record(s) reviewed:: Prior inpatient record, Prior outpatient record,Prior ED visit and Prior labs Lab Data Attestation: I reviewed the patient's lab results. Lab results narrative: CBC normal. White count 8. H&H 15 and 46. Platelets 234. Electrolytes unremarkable gap 14. BUN and creatinine 18 and 1.2. Glucose 94. Labs: Laboratory Results - last 24 hr 11/27/24 10:10 WBC 8.3 RBC 5.05 Hgb 15.5 Hct 46.1 MCV 91.3 MCH 30.7 MCHC 33.6 RDW Std Deviation 40.2 RDW Coeff of Tez 12.0 Plt Count 234 MPV 9.7 Immature Gran % (Auto) 0.600 Neut % (Auto) 59.7 Lymph % (Auto) 24.8 Traverse % (Auto) 8.5 Eos % (Auto) 6.0 H Baso % (Auto) 0.4 Absolute Neuts (auto) 5.0 Absolute Lymphs (auto) 2.06 Nucleated RBC % 0 Sodium 137 Potassium 4.0 Chloride 102 Carbon Dioxide 21.6 Anion Gap 14 BUN 18 Creatinine 1.22 H Estim Creat Clear Calc 63.31 Est GFR (MDRD) Non-Af 63 BUN/Creatinine Ratio 15.0 Glucose 94 Calcium 9.0 Radiography Diagnostic Testing: Clinical Impression(s) from Imaging Studies Brain CT 11/27/24 10:53 IMPRESSION: Mild cerebral atrophy. No acute abnormality is seen. Reading Location: [place] [address] Discharge Plan Triage Chief Complaint: Numb/Ting ED Provider: Pedro Rivera Dx/Rx/DC Orders Clinical Impression: Paresthesia, Rash Instructions: Nonspecific Skin Rash, ED Paresthesia Prescriptions: New fluconazole [Diflucan] 200 mg tablet 200 mg PO DAILY 7 Days Qty: 7 0RF No Action pravastatin 10 MG tablet 40 mg PO DAILY lansoprazole [Prevacid] 15 MG capsule 15 mg PO PRN PRN (Reason: Heartburn) doxazosin [Cardura] 2 MG tablet 2 mg PO QHS budesonide-formoterol [Symbicort] 1 INHALER inhaler 2 puff inhalation PRN PRN (Reason: Sob &/Or Wheezing) Primary Care Provider: Hector Jc Referrals: Hector Jc MD [Primary Care Provider] - As Needed Nova Avalos MD [Non-Staff] - As soon as possible Activity Restrictions/Additional Instructions: Follow-up with the shared services and outsourcing manager office but you need to see the shared services and outsourcing manager. Follow-up your primary care physician as needed. Pepcid twice daily to help with the itching. Finish the antibiotic. Diflucan and antifungal medication. Take daily. Till gone. Antifungal cream for your armpit and groin. Print Language: Stateless Disposition Disposition: Home, Self Care What to do if you have Problems For any increased pain, shortness of breath, bleeding, nausea or vomiting, chestpain, or any unexpected problems, contact your Primary Care Provider. Call [facility] ([phone]) or report to the closest Emergency Room. Call 911 if necessary. 11/27/24 1301 <Electronically signed by Pedro Rivera MD> Cosigner Signature (if applicable): CC: Dr. Hector Jc MD ~ Signed [facility] Work Phone: Evaluation note* Diagnosis Tubular adenoma- Primary Benign neoplasm of unspecified site [facility] [facility] note* Diagnosis Tubular adenoma- Primary Benign neoplasm of unspecified site History of colonic polyps Personal history of colonic polyps documented in this encounter [facility] noteNo assessment information availableWGrant Hospital Work Phone: Evaluation note* Diagnosis Special screening for malignant neoplasms, colon- Primary Tubular adenoma Benign neoplasm of unspecified site Multiple polyps of sigmoid colon documented in this encounter [facility] Discharge instructionsAdditional Instructions Follow-up with the shared services and outsourcing manager office but you need to see the shared services and outsourcing manager. Follow-up your primary care physician as needed. Pepcid twice daily to help with the itching. Finish the antibiotic. Diflucan and antifungal medication. Take daily. Till gone. Antifungal cream for your armpit and groin.[facility] Work Phone: Reason for referral (narrative)* Outpatient Procedure (Routine) - Authorized Specialty Diagnoses / Procedures Referred By Armani rodriguez Referred To Contact [facility] Diagnoses Tubular adenoma Procedures COLONOSCOPY DIAGNOSTIC COLONOSCOPY FLX DX W/COLLJ SPEC WHEN Evelyn Ramos PA-C [address] [place] [address] [facility] [address] [place] [address] Referral ID Status Reason Start Date Expiration Date Visits Requested Visits Authorized [id number] Authorized Auto-Generat ed Referral 06/20/2021 06/20/[address] [facility] for referral (narrative)* Outpatient Procedure (Routine) - Closed Specialty Diagnoses / Procedures Referred By Armani rodriguez Referred To Contact [facility] Diagnoses Tubular adenoma Multiple polyps of sigmoid colon Procedures COLONOSCOPY SCREENING COLONOSCOPY FLX DX W/COLLJ SPEC WHEN Evelyn Ramos PA-C [address] [place] [address] [facility] [address] [place] [address] Referral ID Status Reason Start Date Expiration Date V isits Requested Visits Authorized [id number] Closed Auto-Generate d Referral 12/26/2021 12/26/[address] 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 Advance Directive(s) 06/06/2021 9:37 AM Advance Directive(s) 03/22/2020 9:46 AM Advance Directive Response Recorded Date/ Time Advance Directives Yes December 5:59am Living Will Yes July 05, 2017 10:56am Power of Getter Operator Yes July 05 10:56am Advance Directive Response Recorded Date/ Time Advance Directives Yes December 6:59am Living Will Yes July 05, 2017 11:56am Power of Getter Operator Yes July 05 11:56am Advance Directive Response Recorded Date/ Time Advance Directives Yes December 6:59am Advance Directive Response Recorded Date/ Time Do you have a Healthcare Power of Getter Operator? Yes November 27, 2024 10:11am Advance Directives Yes December 6:59am Medications Administered Section Inactive Administered Medications - [...] LIP 06/05/2022 10:26 AM EST 50 mcg Given by LIP 06/05/2022 10:24 AM EST 50 mcg lactated ringers iv infusion 30 mL/hr, INTRAVENOUS, CONTINUOUS, Starting on Sat06/05/22 at 0930, Until Sat06/05/22 at 1102, Preprocedure New Bag/Syringe/Bottle 06/05/2022 9:15 AM EST 30 mL/hr 30 mL/hr Forearm, Right midazolam 1-5 mg injection (VERSED) 1-5 mg, INTRAVENOUS, DIRECTED, Starting on Sat06/05/22 at 1030, Until Sat06/05/22 at 1429, DOSING DIRECTED BY PHYSICIAN FOR PROCEDURAL SEDATION ONLY, Intraprocedure Given by LIP 06/05/2022 10:29 AM EST 1 mg Given by [facility] 06/05/2022 10:26 AM EST 1 mg Given by [facility] 06/05/2022 10:24 AM EST 4 mg Chief Complaint and Reason for Visit Chief Complaint EORDER Chief Complaint EORDER EORDER Chief Complaint Admit Date numbness November 27, 2024 10 :07am Chief Complaint Admit Date numbness November 27, 2024 10 :07am SKIN December 04, 2024 3: 39pm Summary Purpose Family History No Family History Records FoundNo Family History Records FoundNo Family History Records Found Additional Source Comments Source Comments (unrecognize d section and content) In the event this informatio n is protected by the Federal Confidentiality of Alcohol and Drug Abuse Patient Records regulations: The Federal rules restrict any use of the information to criminally investigate or prosecute any alcohol or drug abuse patient.[facility] the event this information is protected by the Federal Confidentiality of Alcohol and Drug Abuse Patient Records regulations: The Federal rules restrict any use of the information to criminally investigate or prosecute any alcohol or drug abuse patient.[facility] CampusIn the event this information is protected by the Federal Confidentiality of Alcohol and Drug Abuse Patient Records regulations: The Federal rules restrict any use of the information to criminally investigate or prosecute any alcohol or drug abuse patient.[facility] CampusIn the event this information is protected by the Federal Confidentiality of Alcohol and Drug Abuse Patient Records regulations: The Federal rules restrict any use of the information to criminally investigate or prosecute any alcohol or drug abuse patient.[facility] CampusIn the event this information is protected by the Federal Confidentiality of Alcohol and Drug Abuse Patient Records regulations: The Federal rules restrict any use of the information to criminally investigate or prosecute any alcohol or drug abuse patient.[facility] CampusIn the event this information is protected by the Federal Confidentiality of Alcohol and Drug Abuse Patient Records regulations: The Federal rules restrict any use of the information to criminally investigate or prosecute any alcohol or drug abuse patient.[facility] CampusIn the event this information is protected by the Federal Confidentiality of Alcohol and Drug Abuse Patient Records regulations: The Federal rules restrict any use of the information to criminally investigate or prosecute any alcohol or drug abuse patient.[facility] Reason for Visit (unrecogniz ed section and content) Reason Comments 12-19-2021 Colon [facility] Reason Comments Patient Question Bowel prep Reason Comments Follow Up colonoscopy Reason Comments Results colonoscopy Specialty Diagnoses / Procedures Referred By Armani rodriguez Referred To Contact [facility] Diagnoses Benign neoplasm, unspecified site Procedures COLONOSCOPY FLX W/REMOVAL OF FOREIGN BODY(S) [facility] [address] [place] [address] Referral ID Status Reason Start Date Expiration Date Visits Re quested Visits Authorized [id number] 1 1 Care Teams (unrecognized sec tion and content) Doctor Of Podiatric Medicine Relationship Specialty Start Date End Date Hector Jc MD [address] [place], [place] [id number] PCP - General Family Practice 03/22/20 Doctor Of Podiatric Medicine Relationship Specialty Start Date End Date Hector Jc MD [address] [facility] [address] [facility] [place] [place] [id number] PCP - General Family Practice 03/22/20 Doctor Of Podiatric Medicine Relationship Specialty Start Date End Date Hector Jc MD [address] [facility] [place] [id number] PCP - General Family Practice 03/22/20 Team Status: Active Member Role Status Dates Dr. sEteban Jc MD Family Provider Active Dr. Esteban Jc MD Primary Care Provider Activ e Team Status: Inactive Member Role Status Dates Dr. Esteban Jc MD Primary Care Provider, Atte nding Provider Active Team Status: Inactive Member Role Status Dates Dr. Esteban Jc MD Primary Care Provider, Attending Provider, Referring Provider Active Doctor Of Podiatric Medicine Relationship Specialty Start Date End Date Hector Jc MD [address] [facility] [place] [address] PCP - [facility] 03/22/20 Doctor Of Podiatric Medicine Relationship Specialty Start Date End Date Hector Jc MD [address] [facility] [place] [address] PCP - [facility] 03/22/20 Team Status: Active Member Role Status Dates Dr. Hector Jc MD Family Provider Active Dr. Hector Jc MD Primary Care Provider Acti ve Team Status: Inactive Member Role Status Dates Dr. Hector Jc MD Primary Care Provider Acti ve Start: April 20, 2024 End: April 20, 2024 Dr. Hector Jc MD Attending Provider Active Start: April 20, 2024 End: April 20, 2024 Dr. Hector Jc MD Referring Provider Active Start: April 20, 2024 End: April 20, 2024 Team Status: Inactive Member Role Status Dates Dr. Hector Jc MD Primary Care Provider Acti ve Start: July 07, 2024 End: July 07, 2024 Dr. Hector Jc MD Attending Provider Active Start: July 07, 2024 End: July 07, 2024 Dr. Hector Jc MD Referring Provider Active Start: July 07, 2024 End: July 07, 2024 Team Status: Active Member Role/Relationship Status Dates Dr. Hector Jc MD Primary Care Provider Acti ve Team Status: Inactive Member Role/Relationship Status Dates Dr. Hector Jc MD Primary Care Provider Acti ve Start: November 27, 2024 End: November 27, 2024 Dr. Pedro Rivera MD Emergency Provider Active S tart: November 27, 2024 End: November 27, 2024 Team Status: Inactive Member Role/Relationship Status Dates Dr. Hector Jc MD Primary Care Provider Acti ve Start: November 27, 2024 End: November 27, 2024 Dr. Pedro Rivera MD Attending Provider Active S tart: November 27, 2024 End: November 27, 2024 Dr. Pedro Rivera MD Emergency Provider Active S tart: November 27, 2024 End: November 27, 2024 Team Status: Inactive Member Role/Relationship Status Dates Dr. Hector Jc MD Primary Care Provider Acti ve Start: December 04, 2024 End: December 04, 2024 Yohannes LEVY PA Attending Provider Active Sta rt: December 04, 2024 End: December 04, 2024 Yohannes Keane PA PA Referring Provider Active Sta rt: December 04, 2024 End: December 04, 2024 Team Status: Active Member Role/Relationship Status Dates Dr. Hector Jc MD Primary care physician Act sunshine Team Status: Inactive Member Role/Relationship Status Dates Dr. Hector Jc MD Primary care physician Act sunshine Start: November 27, 2024 End: November 27, 2024 Dr. Pedro Rivera MD Attending physician Active Start: November 27, 2024 End: November 27, 2024 Dr. [facility] Active Start: November 27, 2024 End: November 27, 2024 Team Status: Inactive Member Role/Relationship Status Dates Dr. Hector Jc MD Primary care physician Act sunshine Start: December 04, 2024 End: December 04, 2024 Yohannes LEVY PA Attending physician Active St art: December 04, 2024 End: December 04, 2024 Yohannes Keane PA PA Referring Provider Active Sta rt: December 04, 2024 End: December 04, 2024 Team Status: Inactive Member Role/Relationship Status Dates Dr. Hector Jc MD Primary care physician Act sunshine Start: December 28, 2024 End: December 28, 2024 Dr. Hector Jc MD Attending physician Active Start: December 28, 2024 End: December 28, 2024 Team Status: Active Member Role/Relationship Status Dates Dr. Hector Jc MD Primary care physician Act sunshine Start: January 05, 2025 Dr. Hector Jc MD Attending physician Active Start: January 05, 2025 Goals (unrecognized section and content) Goals may be documented in a n alternate sectionGoals may be documented in an alternate sectionGoals may be documented in an alternate sectionGoals may be documented in an alternate sectionGoals may be documented in an alternate sectionGoals may be documented in an alternate sectionGoals may be documented in an alternate sectionGoals may be documented in an alternate section (unrecognized sect ion and content) No Status Records FoundNo Status Records FoundNo Status Records Found INFORMATION SOURCE (unrecogn ized section and content) DATE CREATED AUTHOR 12/16/2024 [facility] DATE CREATED AUTHOR AUTHOR'S ORGANIZ ATION 02/11/[address] [facility] DATE CREATED AUTHOR AUTHOR'S ORGANIZ ATION 02/20/2025 [facility] FOR RECORDS PERTAINING TO PATIENTS WHO ARE [...] BE BASED ON THE PRIMARY CLINICAL RECORDS. [employer] [facility]. provides no warranty or guarantee of the accuracy or completeness of information in this document.
[2025-04-08 07:07] LABS: LDH 222 IU/L (121-224); LDH Fraction 1 23 % (17-32); LDH Fraction 2 32 % (25-40); LDH Fraction 3 24 % (17-27); LDH Fraction 4 11 % (5-13); LDH Fraction 5 10 % (4-20)
== END | disposition home or self-care (01) ==
PROVIDERS: PCP Family Medicine; Referring Provider Nurse Practitioner Family; Visit Provider Nurse Practitioner Family
DX: L30.9 Dermatitis, unspecified (principal)
CPT/HCPCS: 36415; 83615; 83625; 84443